=== PATIENT | female | born 1960 | race Caucasian/White ===

== ENCOUNTER 2025-02-10 13:24 | Emergency (ER) | payer MEDICARE, SELFPAY ==
--- OUTSIDE RECORDS SUMMARY | 2025-01-22 18:02 | XMS_ITS | Continuity of Care Document ---
Author Organization [facility] Address [address] [address] [place] [address] Phone Care Team Providers Care Account Resolution Specialist Name Role Phone Jay Sahu MD Unavailable Unavailable Allergies, Adverse Reactions, Alerts Substance Reaction Status Criticality budesonide Swelling Active No Information Iodinated Contrast Media throat swelling Active No Information Medications Medication Instructions Dosage Effective Dates (start - stop) Status Comments Skyrizi 360 mg/2.4 mL (150 mg/mL) subcutaneous wearable injector inject (360MG) by subcutaneous route every 6 weeks via on-body infusor 360 MG - Active trazodone 50 mg tablet take 40 milligram by oral route 2 times every day after meals as needed 2000 MG - Active Suprep Bowel Prep Kit 17.5 gram-3.13 gram-1.6 gram oral solution Take by oral route as directed per colonoscopy prep instructions from [facility] - Active Okay to dispense generic equivalent Procedure 12/29/24 losartan 50 mg tablet take 1 tablet by oral route every day 50 MG - Active Colace 100 mg capsule take 1 capsule by oral route 2 times every day as needed 100 MG - Active Eliquis 5 mg tablet take 1 tablet by oral route 1-2 times every day for stroke - Active atorvastatin 40 mg tablet take 1 tablet by oral route every day 40 MG - Active multivitamin tablet take 1 tablet by oral route every day 1 tablet - Active mesalamine 1,000 mg rectal suppository insert 1 suppository by rectal route TWICE daily for UC flare. - Active Proair Digihaler 90 mcg/actuation aerosol powder breath act, sensor inhale 2 puff by inhalation route every 4 - 6 hours as needed - Active magnesium 200 mg tablet take 2 tablet by oral route every day 2 tablet - Active Vitamin C 500 mg capsule,extended release take 1 - 2 capsule by oral route every day as needed 1-2 capsule - Active CURCUMIN (unknown strength) (tumeric) 900 mg daily Not Available - Active Procedures Procedure Date Offic/outpt E&m Estab Moderate 25 Colonoscopy Flex; W/remov Les- Colonoscopy Flex; W/bx 1/mx Level Iv-surg Path Gross/micro Offic/outpt E&m Estab Low Offic/outpt E&m Estab Skyrizi Iv Infus Therap/dx-by Phys; To Iv Infus Therap/dx-by Phys; Lino Routine Serum Collection Offic/outpt E&m Estab Low-mod 5 Init Hosp-da E&m Mod Severity 5 Skyrizi Iv Infus Therap/dx-by Phys; To Iv Infus Therap/dx-by Phys; Lino Routine Serum Collection Skyrizi Iv Infus Therap/dx-by Phys; To 25 Each Additional Hour Offic/outpt E&m Estab Mod-hi 2 25 Inflectra 10 mg IV Infusion Up To 1 Hour Inflectra 10 mg Inflectra 10 mg IV Infusion Up To 1 Hour Each Additional Hour Inflectra 10 mg Inflectra 10 mg IV Infusion Up To 1 Hour Each Additional Hour Inflectra 10 mg Inflectra 10 mg IV Infusion Up To 1 Hour Each Additional Hour Inflectra 10 mg Routine Serum Collection Offic/outpt E&m Estab Mod-hi 2 Routine Serum Collection Routine Serum Collection Sigmoidoscopy Flex; W/bx 1/mx 4 Level Iv-surg Path Gross/micro Immunocytochemistry, Each Antibody Offic/outpt E&m Estab Mod-hi 2 Offic/outpt E&m Estab Mod-hi 2 24 Routine Serum Collection Routine Serum Collection Routine Serum Collection Routine Serum Collection Routine Serum Collection Offic/outpt E&m Estab Mod-hi 2 23 Colonoscopy Flex; W/bx 1/mx Level Iv-surg Path Gross/micro 23 Established Level 3 Routine Serum Collection Routine Serum Collection Routine Serum Collection Offic/outpt E&m Estab Low-mod Routine Serum Collection Routine Serum Collection Bld Ct; Hg/pltlt Ct Auto/compl Hepatic Function Panel Routine Serum Collection Urea Nitro; Ty Creatinine; Bld Hepatic Function Panel Bld Ct; Hg/pltlt Ct Auto/compl Routine Serum Collection Hepatic Function Panel Bld Ct; Hg/pltlt Ct Auto/compl Nov-04-20 20 Routine Serum Collection Hepatic Function Panel Bld Ct; Hg/pltlt Ct Auto/compl 20 Established Level 3 or 15-24 min 2019 Routine Serum Collection Hepatic Function Panel Bld Ct; Hg/pltlt Ct Auto/compl 20 Routine Serum Collection Hepatic Function Panel Bld Ct; Hg/pltlt Ct Auto/compl 20 Offic/outpt E&m Estab Low-mod 9 Routine Serum Collection Bld Ct; Hg/pltlt Ct Auto/compl 19 Urea Nitro; Ty Creatinine; Bld Hepatic Function Panel Iron Iron Binding Capacity Vitamin D; 25 Hydroxy Colonoscopy Flex; W/bx 1/mx Level Iv-surg Path Gross/micro 19 Special Stains; Grp I Microorg 19 Immunocytochemistry, Each Antibody Routine Serum Collection Bld Ct; Hg/pltlt Ct Auto/compl 19 Hepatic Function Panel Offic/outpt E&m Estab Low-mod 9 Routine Serum Collection Bld Ct; Hg/pltlt Ct Auto/compl 19 Hepatic Function Panel Iron Cyanocobalamin Vitamin D; 25 Hydroxy Routine Serum Collection Hepatic Function Panel Bld Ct; Hg/pltlt Ct Auto/compl 18 Routine Serum Collection Bld Ct; Hg/pltlt Ct Auto/compl 18 Hepatic Function Panel Offic/outpt E&m Estab Low-mod 8 Routine Serum Collection Urea Nitro; Ty Creatinine; Bld Hepatic Function Panel Bld Ct; Hg/pltlt Ct Auto/compl 18 Routine Serum Collection Hepatic Function Panel Bld Ct; Hg/pltlt Ct Auto/compl 18 Routine Serum Collection Offic/outpt E&m Estab Low-mod 7 Hepatic Function Panel Bld Ct; Hg/pltlt Ct Auto/compl 17 Routine Serum Collection Bld Ct; Hg/pltlt Ct Auto/compl 17 Routine Serum Collection Bld Ct; Hg/pltlt Ct Auto/compl 17 Routine Serum Collection Bld Ct; Hg/pltlt Ct Auto/compl 17 Routine Serum Collection Bld Ct; Hg/pltlt Ct Auto/compl 17 Routine Serum Collection Bld Ct; Hg/pltlt Ct Auto/compl 17 Offic/outpt E&m Estab Low-mod 7 Routine Serum Collection Iron Iron Binding Capacity Hepatitis B Surface Antibody Ag-immunoassay; Hep B Surface Hepatitis A Antibody; Igg & Ig [address] Hg/pltlt Ct Auto/compl 17 Sigmoidoscopy Flex; W/bx 1/mx 7 Level Iv-surg Path Gross/micro 17 Immunocytochemistry, Each Antibody Stool Kits Given C. Difficile Toxin Gene, YAS Offic/outpt E&m Estab Mod-hi 2 17 Offic/outpt E&m Estab Mod-hi 2 16 Routine Serum Collection Bld Ct; Hg/pltlt Ct Auto/compl 16 Cyanocobalamin Hepatic Function Panel C-reactive Prot Iron Iron Binding Capacity Vitamin D; 25 Hydroxy Routine Serum Collection Bld Ct; Hg/pltlt Ct Auto/compl 16 Hepatic Function Panel Creatinine; Bld Urea Nitro; Ty Routine Serum Collection Bld Ct; Hg/pltlt Ct Auto/compl 15 Hepatic Function Panel Offic/outpt E&m Estab Mod-hi 2 15 Routine Serum Collection Bld Ct; Hg/pltlt Ct Auto/compl 15 Hepatic Function Panel Colonoscopy Flex; W/bx 1/mx Level Iv-surg Path Gross/micro 15 cancelled appt C. Difficile Toxin Gene, YAS Offic/outpt E&m Estab Mod-hi 2 15 Routine Serum Collection Immuniz Admin; 1/combo Vacc/to 15 Pneumococcal Polysacch Vac-wes [address]; Hg/pltlt Ct Auto/compl 15 Cyanocobalamin C-reactive Prot Creatinine; Bld Urea Nitro; Ty Vitamin D; 25 Hydroxy Routine Serum Collection Bld Ct; Hg/pltlt Ct Auto/compl 15 Hepatic Function Panel Routine Serum Collection Bld Ct; Hg/pltlt Ct Auto/compl 15 Hepatic Function Panel Offic/outpt E&m Estab Low-mod 5 Routine Serum Collection Bld Ct; Hg/pltlt Ct Auto/compl 15 Comp Metabolic Panel Routine Serum Collection Bld Ct; Hg/pltlt Ct Auto/compl 14 Hepatic Function Panel Creatinine; Bld Urea Nitro; Ty Offic/outpt E&m Estab Low-mod 4 Routine Serum Collection Bld Ct; Hg/pltlt Ct Auto/compl 14 Hepatic Function Panel Routine Serum Collection Bld Ct; Hg & Platelet Ct Autom [address] Hg/pltlt Ct Auto/compl 14 Hepatic Function Panel Offic/outpt E&m Estab Low-mod 4 Routine Serum Collection Offic/outpt E&m Estab Low-mod 3 Routine Serum Collection Bld Ct; Hg/pltlt Ct Auto/compl 13 Folic Acid; Serum Cyanocobalamin Hepatic Function Panel Iron Iron Binding Capacity Basic Metabolic Panel Thyroid Stim Hormone Ferritin Routine Serum Collection Bld Ct; Hg/pltlt Ct Auto/compl 13 Hepatic Function Panel Offic/outpt E&m Estab Low-mod 3 Routine Serum Collection Bld Ct; Hg/pltlt Ct Auto/compl 13 Hepatic Function Panel Basic Metabolic Panel Bld Ct; Hg/pltlt Ct Auto/compl 12 Hepatic Function Panel Offic/outpt E&m Estab Low-mod 2 Routine Serum Collection G8447 Routine Serum Collection Offic/outpt E&m Estab Low-mod 2 Routine Serum Collection G8447 Routine Serum Collection Offic/outpt E&m Estab Low-mod 1 Routine Serum Collection G8447 Routine Serum Collection Offic/outpt E&m Estab Low-mod 1 Routine Serum Collection G8447 Offic/outpt E&m Estab Low-mod 0 Routine Serum Collection G8447 Offic/outpt E&m Estab Low-mod 0 Routine Serum Collection G8447 Offic/outpt E&m Estab Low-mod 9 G8447 Offic/outpt E&m Estab Low-mod 9 Routine Serum Collection G8447 Offic/outpt E&m Estab Low-mod 8 Routine Serum Collection G8447 Offic/outpt E&m Estab Low-mod 8 Routine Serum Collection G8447 Routine Serum Collection Level Iv-surg Path Gross/micro 08 Special Stains; Grp I Microorg 08 Colonoscopy Flex; W/bx 1/mx Offic/outpt E&m Estab Mod-hi 2 08 Routine Serum Collection G8447 Advance Directives Directive Yes / No Effective Date File Name No Information Encounters Encounter Description Practice Location Reason(s) For Visit Diagnoses Date Provider Providers Copied on Encounter [facility], [address] [address], [place], [place], [id number], tel:[phone] No Information 5 Adelina Thompson. [address] [place] [address], [id number], [place]. tel:[phone] [facility], [address] [address], [facility] [place], [id number], [place] tel:[phone] [facility] No Information 5 Neel Gonzales. [address] [place] [address], [id number], [place]. tel:[phone] Offic/outpt E&m Estab Moderate [facility], [address] [address], [place], [place], [id number], tel:[phone] [facility] GI Symptoms or Concerns (chief complaint) Left sided colitis without complication sOther fatigueAbdom inal bloating 5 Sweta VÁZQUEZ Sangeetha. [address] [place] [address], [id number], [place]. tel:[phone] Referring Provider: Referral Self, USE FOR SELF REFERRALS. [facility], [address] [address], [facility] [place], [id number], [place] tel:[phone] [facility] Diverticulos is of large intestine without perforation or abscess without bleedingInte rnal hemorrhoidsC olorectal polypsUlcera tive colitis, unspecified, without complication sCrohn's disease of large intestine without complication Ulcerative colitis, unspecified, without complication sPolyp of colon 5 Fish De Dios. [address] [place] [address], [id number], [place]. tel:[phone] Referring Provider: Referral Self, USE FOR SELF REFERRALS. [facility], [address] [address], [facility] [place], [id number], [place] tel:[phone] [facility] No Information 5 Fish De Dios. [address] [place] [address], [id number], [place]. tel:[phone] Offic/outpt E&m Estab Low [facility], [address] [address], [facility] [place], [id number], [place] tel:[phone] [facility] Additional Narrative (chief complaint)GI Symptoms or Concerns (chief complaint) Ulcerative (chronic) rectosigmoid itis without complication s 5 Fish De Dios. [address] [place] [address], [id number], [place]. tel:[phone] Tiffanie Barton CNM. tel:[phone] ng Provider: Referral Self, USE FOR SELF REFERRALS. Offic/outpt E&m Estab [facility], [address] [address], [place] [place], [id number], [place] tel:[phone] [facility] GI Symptoms or Concerns (chief complaint) Ulcerative (chronic) rectosigmoid itis without complication s 5 Renato Trujillo. [address] [place] [address], [id number], . tel:[phone] Tiffanie Barton CNM. tel:[phone] ng Provider: Referral Self, USE FOR SELF REFERRALS. [facility], [address] [address], [place], [place], [id number], tel:[phone] [facility] Nick Ulcerative (chronic) rectosigmoid itis with rectal bleeding May-0 5 Fish De Dios. [address] [place] [address], [id number], [place]. tel:[phone] Tiffanie Barton CNM. tel:[phone] ng Provider: Referral Self, USE FOR SELF REFERRALS. [facility], [address] [address], [place], [place], [id number], tel:[phone] [facility] Ulcerative (chronic) rectosigmoid itis with rectal bleeding 0 5 Fish De Dios. [address] [place] [address], [id number], [place]. tel:[phone] Tiffanie MEDINAM. tel:[phone] ng Provider: Referral Self, USE FOR SELF REFERRALS. Offic/outpt E&m Estab Low-mod [facility], [address] [address], [place], [place], [id number], tel:[phone] [facility] GI Symptoms or Concerns (chief complaint)Ad ditional Narrative (chief complaint) Ulcerative (chronic) rectosigmoid itis without complication s 5 Fish De Dios. [address] [place] [address], [id number], [place]. tel:[phone] Tiffanie Barton CNM. tel:[phone] ng Provider: Referral Self, USE FOR SELF REFERRALS. Init Hosp-da E&m Mod Severity [facility], [address] [address], [place], [id number], [place] tel:[phone] [facility] No Information 5 Sangeethacecily COOPER Maureen. [address], [id number], [place]. tel:[phone] Referring Provider: Sharri Saini, [address] [place], [address]. tel:[phone] [facility], [address] [address], [place], [id number], [place] tel:[phone] [facility] Ulcerative (chronic) rectosigmoid itis with rectal bleeding 5 Edstrjean carlos Sterling. [address], [id number], [place]. tel:[phone] [facility], [address] [address], [place], [id number], [place] tel:[phone] [facility] [place] Ulcerative (chronic) rectosigmoid itis with rectal bleeding 5 Fish De Dios. [address] [place] [address], [id number], [place]. tel:[phone] Tiffanie Barton CNM. tel:[phone] ng Provider: Referral Self, USE FOR SELF REFERRALS. [facility], [address] [address], [place], [id number], [place] tel:[phone] [facility] Ulcerative (chronic) rectosigmoid itis with rectal bleeding 5 Sweta Vivas. [facility] [address], [id number], [place]. tel:[phone] Tiffanie Barton CNM. tel:[phone] ng Provider: Referral Self, USE FOR SELF REFERRALS. [facility], [address] [address], [place], [id number], tel:[phone] [facility] Nick Ulcerative (chronic) rectosigmoid itis with rectal bleeding 5 Lydia Sterling. [address] [place] [address], [id number], . tel:[phone] [facility], [address] [address], [place], [id number], tel:[phone] [facility] [place] Ulcerative (chronic) rectosigmoid itis with rectal bleeding 5 Rito Gutierrez. [address] [place] [address], [id number], [place]. tel:[phone] Tiffanie Barton CNM. tel:[phone] ng Provider: Referral Self, USE FOR SELF REFERRALS. [facility], [address] [address], [place], [place], [id number], tel:[phone] [facility] [place] Ulcerative (chronic) rectosigmoid itis with rectal bleeding Lydia Sterling. [address] [place] [address], [id number], [place]. tel:[phone] Tiffanie Barton CNM. tel:[phone] Offic/outpt E&m Estab Mod-hi 2 [facility], [address] [address], [place], [place], [id number], tel:[phone] [facility] GI Symptoms or Concerns (chief complaint) Ulcerative (chronic) rectosigmoid itis with rectal bleeding 5 Lydia Sterling. [address] [place] [address], [id number], [place]. tel:[phone] Tiffanie Barton CNM. tel:[phone] ng Provider: Referral Self, USE FOR SELF REFERRALS. [facility], [address] [address], [place], [id number], [place] tel:[phone] In[facility] Ulcerative (chronic) rectosigmoid itis with rectal bleeding Jan-2 4 Fish De Dios. [address] [facility], [address], [id number], [place]. tel:[phone] [facility], [address] [address], [place], [id number], [place] tel:[phone] [facility] [place] Ulcerative (chronic) rectosigmoid itis with rectal bleeding Jan-0 3 4 Lars Sahni. [address] [place] [address], [id number], [place]. tel:[phone] Tiffanie Barton [facility]. tel:[phone] ng Provider: Referral Self, USE FOR SELF REFERRALS. [facility], [address] [address], [place], [id number], [place] tel:[phone] [facility] Ulcerative (chronic) rectosigmoid itis without complication s Dec- 4 Fish De Dios. [address] [place] [address], [id number], [place]. tel:[phone] [facility], [address] [address], [place], [id number], [place] tel:[phone] [facility] [place] Ulcerative (chronic) rectosigmoid itis with rectal bleeding Nov-2 2 4 Lars Sahni. [address] [place] [address], [id number], [place]. tel:[phone] Referring Provider: Referral Self, USE FOR SELF REFERRALS. [facility], [address] [address], [place], [id number], [place] tel:[phone] [facility] Ulcerative (chronic) rectosigmoid itis with rectal bleeding Nov-0 8 4 Fish De Dios. [address] [place] [address], [id number], [place]. tel:[phone] [facility], [address] [address], [place], [id number], [place] tel:[phone] [facility] Ulcerative (chronic) rectosigmoid itis with rectal bleeding Sep-2 4-202 4 Lars Sahni. [address] [place] [address], [id number], [place]. tel:[phone] Tiffanie Barton CNM. tel:[phone] Provider: Referral Self, USE FOR SELF REFERRALS. [facility], [address] [address], [place], [id number], [place] tel:[phone] [facility] Ulcerative (chronic) rectosigmoid itis with rectal bleeding Sep-1 0-202 4 Ashli Moreno. [address] [place] [address], [id number], [place]. tel:[phone] Tiffanie Barton CNM. tel:[phone] Provider: Referral Self, USE FOR SELF REFERRALS. [facility], [address] [address], [place], [id number], [place] tel:[phone] [facility] Ulcerative (chronic) rectosigmoid itis with rectal bleeding Sep-1 0-202 4 Sweta Vivas. [address] [place] [address], [id number], [place]. tel:[phone] Tiffanie Barton CNM. tel:[phone] Provider: Referral Self, USE FOR SELF REFERRALS. [facility], [address] [address], [place], [id number], [place] tel:[phone] [facility] [place] Ulcerative (chronic) rectosigmoid itis with rectal bleeding Sep-0 5-202 4 Fish De Dios. [address] [place] [address], [id number], [place]. tel:[phone] [facility], [address] [address], [place], [id number], [place] tel:[phone] [facility] Ulcerative (chronic) rectosigmoid itis with rectal bleeding 4 Fish De Dios. [address] [facility], [address], [id number], [place]. [phone] [facility], [address] [address], [place], [id number], [place] tel:[phone] [facility] Ulcerative (chronic) rectosigmoid itis with rectal bleeding 4 Fish De Dios. [address], [id number], [place]. tel:[phone] Offic/outpt E&m Estab Mod-hi 2 [facility], [address] [address], [place], [id number], [place] tel:[phone] [facility] GI Symptoms or Concerns (chief complaint)Ad ditional Narrative (chief complaint) Ulcerative (chronic) rectosigmoid itis with rectal bleeding 4 Fish De Dios. [address], [id number], [place]. tel:[phone] Tiffanie Barton CNM. tel:[phone] ng Provider: Referral Self, USE FOR SELF REFERRALS. [facility], [address] [address], [place], [id number], [place] tel:[phone] [facility] No Information 4 Sweta Vivas. [address], [id number], [place]. tel:[phone] Tiffanie Barton CNM. tel:[phone] [facility], [address] [address], [place], [id number], [place] tel:[phone] [facility] Ulcerative (chronic) rectosigmoid itis without complication s 4 [place] [facility] Sangeetha. [address] [facility], [facility] [address], [place], [place], [id number], [place]. [phone] Tiffanie Barton CNM. tel:[phone] ng Provider: Referral Self, USE FOR SELF REFERRALS. [facility], [address] [address], [place], [id number], [place] tel:[phone] [facility] Ulcerative (chronic) rectosigmoid itis without complication s 4 [place] PAC Sangeetha. [address] [facility], [facility] [address], [place], [place], [id number], [place]. tel:[phone] [facility], [address] [address], [place], [id number], [place] tel:[phone] [facility] Ulcerative (chronic) rectosigmoid itis with rectal bleedingLeft sided colitis without complication s 4 [place] PAC Sangeetha. [address] [facility] [place], [place], [id number], [place]. tel:[phone] Tiffanie Barton CNM. tel:[phone] ng Provider: Referral Self, USE FOR SELF REFERRALS. [facility], [address] [address], [place], [id number], [place] tel:[phone] [facility] Left sided colitis without complication s 4 [place] PAC Sangeetha. [address] [facility], [facility] [place], [id number], [place]. tel:[phone] [facility], [address] [address], [place], [id number], [place] tel:[phone] [facility] No Information 4 [place] PAC Sangeetha. [address] [facility], [facility] [address], [place], [place], [id number], [place]. tel:[phone] [facility], [address] [address], [place], [id number], [place] tel:[phone] [facility] GI Symptoms or Concerns (chief complaint) Ulcerative colitis without complication s, unspecified locationUlce rative colitis, unspecified, without complication s 4 Uche Crowe. [address] [facility], [address], [id number], [place]. tel:[phone] Tiffanie Barton CNM. tel:[phone] ng Provider: Referral Self, USE FOR SELF REFERRALS. Offic/outpt E&m Estab Mod-hi 2 [facility], [address] [address], [place], [id number], [place] tel:[phone] [facility] GI Symptoms or Concerns (chief complaint) Left sided colitis without complication sConstipatio n, unspecified constipation typeRectal bleeding 4 Sweta Vivas. [address], [id number], [place]. tel:[phone] Tiffanie Barton CNM. tel:[phone] ng Provider: Referral Self, USE FOR SELF REFERRALS. [facility], [address] [address], [place], [id number], [place] tel:[phone] [facility] Left sided colitis without complication s 4 Sweta Vivas. [address], [id number], [place]. tel:[phone] Offic/outpt E&m Estab Mod-hi 2 [facility], [address] [address], [place], [id number], [place] tel:[phone] [facility] GI Symptoms or Concerns (chief complaint)Ad ditional Narrative (chief complaint) Left sided colitis without complication sConstipatio n, unspecified constipation typeAbdomina l bloating 4 OMgera Vivas. [address], [id number], [place]. tel:[phone] Tiffanie Barton CNM. tel:[phone] keiry Provider: Referral Self, USE FOR SELF REFERRALS. [facility], [address] [address], [place] [place], [id number], [place] tel:[phone] [facility] Ulcerative (chronic) rectosigmoid itis with rectal bleedingUlce rative (chronic) rectosigmoid itis without complication s 3 Sweta Vivas. [address]001 [facility], [facility] [address], [place], [address], [place]. tel:[phone] Referring Provider: Referral Self, USE FOR SELF REFERRALS. [facility], [address] [address], [place], [id number], [place] tel:[phone] [facility] Ulcerative (chronic) rectosigmoid itis without complication s 3 Shiv Mak. [address] [facility], [facility] [address], [place], [address], [place]. tel:[phone] [facility], [address] [address], [place], [address], [place] tel:[phone] [facility] Ulcerative (chronic) rectosigmoid itis with rectal bleeding 3 Fish De Dios. [address], [id number], [place]. tel:[phone] Tiffanie Barton CNM. tel:[phone] ng Provider: Referral Self, USE FOR SELF REFERRALS. [facility], [address] [address], [place], [address], [place] tel:[phone] [facility] Other ulcerative colitis without complication s 3 Fish De Dios. [address] [facility], [facility] [address], [place], [address], [place]. tel:[phone] Tiffanie Barton CNM. tel:[phone] ng Provider: Referral Self, USE FOR SELF REFERRALS. Offic/outpt E&m Estab Mod-hi 2 [facility], [address] [address], [place], [address], [place] tel:[phone] [facility] Additional Narrative (chief complaint) Ulcerative (chronic) rectosigmoid itis without complication s 3 Fish De Dios. [address], [id number], [place]. tel:[phone] Tiffanie Barton CN. tel:[phone] ng Provider: Referral Self, USE FOR SELF REFERRALS. [facility], [address] [address], [place], [address], [place] tel:[phone] [facility] GI Symptoms or Concerns (chief complaint) Ulcerative (chronic) rectosigmoid itis without complication sUlcerative (chronic) rectosigmoid itis without complication s 3 Linwood Ocampo. [address], [id number], [place]. tel:[phone] Tiffanie Hapapo CN. tel:[phone] ng Provider: Referral Self, USE FOR SELF REFERRALS. Established Level 3 [facility], [address] [address], [place], [id number], [place] tel:[phone] [facility] GI Symptoms or Concerns (chief complaint) Chronic ulcerative rectosigmoid itis without complication sAbdominal bloating 2 Sweta Vivas. [address] [facility], [facility] 500, [place], [place], [address], [place]. tel:[phone] Tiffanie Oralia CN. tel:[phone] ng Provider: Referral Self, USE FOR SELF REFERRALS. [facility], [address] [address], [place], [address], [place] tel:[phone] [facility] Ulcerative (chronic) rectosigmoid itis with rectal bleeding 2 [place] PAC Sangeetha. 3[address] [facility], [address], [id number], [place]. tel:[phone] Tiffanie Barton CNM. tel:[phone] ng Provider: Referral Self, USE FOR SELF REFERRALS. [facility]INA, [address] [address], [place], [address], [place] tel:[phone] [facility] Ulcerative (chronic) rectosigmoid itis with rectal bleeding 2 [place] PAC Sangeetha. [address] [facility], [address], [id number], [place]. tel:[phone] Tiffanie Barton CNM. tel:[phone] ricci Provider: Referral Self, USE FOR SELF REFERRALS. 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 [address], [id number], [place]. tel:[phone] Tiffanie Barton CNM. tel:[phone] ng Provider: Referral Self, USE FOR SELF REFERRALS. 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 [address] [facility], [address], [id number], [place]. tel:[phone] Tiffanie Barton CNM. tel:[phone] ng Provider: Referral Self, USE FOR SELF REFERRALS. [facility]INA, [address] [address], [place], [address], [place] tel:[phone] [facility] Other ulcerative colitis without complication s 1 [place] PAC Sangeetha. [address] [facility], [address], [id number], [place]. tel:[phone] Tiffanie Barton CNM. tel:[phone] keiry Provider: Tiffanie Hodge, [address] [place], [address]. 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 [address] [facility], [address], [id number], [place]. tel:[phone] Tiffanie Barton CNM. tel:[phone] keiry Provider: Sangeetha Flowers, 3[address] [facility] [address], [address]. [phone] [facility], [address] [address], [facility], [address], [place] tel:[phone] [facility] Other ulcerative colitis without complication s 1 OMor[place]oe PAC Sangeetha. [address] [facility], [address], [id number], [place]. tel:[phone] Tiffanie Barton CNM. tel:[phone] keiry Provider: Referral Self, USE FOR SELF REFERRALS. [facility], [address] [address], [facility], [address], [place] tel:[phone] [facility] Left sided colitis without complication s 0 OMor[place]oe PAC Sangeetha. [address] [facility], [facility] [address], [place], [address], [place]. tel:[phone] Tiffanie Barton CNM. tel:[phone] keiry Provider: Referral Self, USE FOR SELF REFERRALS. [facility] AMINA, [address] [address], [facility] [place] [address], [place] tel:[phone] [facility] Ulcerative (chronic) rectosigmoid itis with rectal bleedingLeft sided colitis without complication s 0 OMorindianae PAC Sangeetha. [address] [facility], [address], [id number], [place]. tel:[phone] Tiffanie Barton CNYeny. tel:[phone] keiry Provider: Tiffanie Hodge, [address] [place] [address], [place], [place], [facility]. tel:[phone] Established Level 3 or 15-24 min [facility] AMINA, [address] [address], [place], [place], [address], [place] tel:[phone] [facility] GI Symptoms or Concerns (chief complaint)GI Symptoms or Concerns (chief complaint) Left sided ulcerative colitis without complication 0 JEAN CARLOSorgrabiel Vivas. 3[address] [facility], [address], [id number], [place]. tel:[phone] Tiffanie Barton CNYeny. tel:[phone] keiry Provider: Tiffanie Hodge, [address], [place], [address]. 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 3[address] [facility], [address], [id number], [place]. tel:[phone] Tiffanie Barton CNYeny. tel:[phone] ng Provider: Sangeetha Flowers, [address], [address]. 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 [address], [id number], [place]. tel:[phone] Tiffanie Barton CNM. tel:[phone] ricci Provider: Tiffanie Barton CNM J, [address] [facility] [place], [address]. tel:[phone] Offic/outpt E&m Estab Low-mod [facility], [address] [address], [place], [address], [place] tel:[phone] [facility] GI Symptoms or Concerns (chief complaint) Left sided ulcerative colitis without complication 9 OMmarcosmaryjane VÁZQUEZ Sangeetha. [address], [id number], [place]. tel:[phone] Tiffanie Barton CNM. tel:[phone] ricci Provider: Referral Self, USE FOR SELF REFERRALS. [facility], [address] [address], [place], [address], [place] tel:[phone] [facility] No Information 9 Jared Lo. 3[address] [facility], [address], [id number], [place]. tel:[phone] [facility], [address] [address], [place], [address], [place] tel:[phone] [facility] Ulcerative (chronic) rectosigmoid itis with rectal bleedingDive rticulosis of colon without diverticulit isUlcerative (chronic) rectosigmoid itis with rectal bleedingDvrt clos of lg int w/o perforation or abscess w/o bleeding 9 Mejia Montoya. [address] [address], [place], [place], [address], [place]. tel:[phone] Tiffanie Barton CNM. tel:[phone] ricci Provider: Tiffanie Hodge, [address], [place], [address]. tel:[phone] [facility], [address] [address], [facility] [place], [address], [place] tel:[phone] [facility] Ulcerative (chronic) rectosigmoid itis with rectal bleeding 9 OMor[place] PAC Sangeetha. [address], [id number], [place]. tel:[phone] Tiffanie Barton CNM. tel:[phone] ricci Provider: Tiffanie Hodge, [address] [place], [address]. tel:[phone] Offic/outpt E&m Estab Low-mod [facility], [address] [address], [facility] [place], [place], [address], [place] tel:[phone] [facility] GI Symptoms or Concerns (chief complaint) Left sided ulcerative colitis without complication Dietary counseling and surveillance Elevated blood-pressu re reading, w/o diagnosis of htn 9 OMor[place] PAC Sangeetha. [address], [id number], [place]. [phone] Tiffanie Barton CNM. tel:[phone] ricci Provider: Tiffanie Hodge, [address] [facility], [place], [address]. tel:[phone] [facility], [address] [address], [facility] [place], [place], [address], [place] tel:[phone] [facility] Ulcerative (chronic) rectosigmoid itis with rectal bleeding 8 OMor[place]oe PAC Sangeetha. [address], [id number], [place]. tel:[phone] Tiffanie Barton CNM. tel:[phone] ng Provider: Tiffanie Barton CNM J, [address] [place], [address]. tel:[phone] [facility], [address] [address], [place], [place], [address], tel:[phone] [facility] Ulcerative (chronic) rectosigmoid itis with rectal bleeding 8 [place] PAC Sangeetha. [address], [id number], [place]. tel:[phone] Tiffanie Barton CNM. tel:[phone] ng Provider: Referral Self, USE FOR SELF REFERRALS. Offic/outpt E&m Estab Low-mod [facility], [address] [address], [place], [place], [address], [place] tel:[phone] [facility] GI Symptoms or Concerns (chief complaint) Left sided ulcerative colitis without complication 8 OMorchomaryjane PAC Sangeetha. [address], [id number], [place]. tel:[phone] Tiffanie Barton CNM. tel:[phone] ng Provider: Referral Self, USE FOR SELF REFERRALS. [facility] AMINA, [address] [address], [place], [place], [address], [place] tel:[phone] [facility] Ulcerative (chronic) rectosigmoid itis with rectal bleeding 8 OMorgrabiel PAC Sangeetha. [address], [id number], [place]. tel:[phone] Tiffanie Barton CNM. tel:[phone] ricci Provider: Referral Self, USE FOR SELF REFERRALS. 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 [address], [id number], [place]. tel:[phone] Tiffanie Barton CNM. tel:[phone] ricci Provider: Referral Self, USE FOR SELF REFERRALS. [facility], [address] [address], [place], [address], [place] tel:[phone] [facility] Ulcerative (chronic) rectosigmoid itis with rectal bleeding Sep- 7 OMorchoe PAC Sangeetha. [address], [id number], [place]. tel:[phone] Tiffanie Barton CNM. tel:[phone] ricci Provider: Referral Self, USE FOR SELF REFERRALS. [facility], [address] [address], [place], [address], [place] tel:[phone] [facility] Ulcerative (chronic) rectosigmoid itis with rectal bleeding Sep- 7 OMorchoe PAC Sangeetha. [address], [id number], [place]. tel:[phone] Tiffanie Barton CNM. tel:[phone] [facility], [address] [address], [place], [address], [place] tel:[phone] [facility] Ulcerative (chronic) rectosigmoid itis with rectal bleeding Sep- 7 OMor[place]oe PAC Sangeetha. [address], [id number], [place]. tel:[phone] Tiffanie Barton CNM. tel:[phone] ricci Provider: Listed Not. [facility], [address] [address], [place], [address], [place] tel:[phone] [facility] Ulcerative (chronic) rectosigmoid itis with rectal bleeding Sep-1 7 O[place] PAC Sangeetha. [address] [facility], [address], [id number], [place]. tel:[phone] Tiffanie Barton CNM. tel:[phone] [facility], [address] [address], [place], [address], [place] tel:[phone] [facility] Ulcerative (chronic) rectosigmoid itis with rectal bleeding Sep-0 7 O[place] PAC Sangeetha. [address] [facility], [address], [id number], [place]. tel:[phone] Tiffanie Barton CNM. tel:[phone] ng Provider: Listed Not. [facility], [address] [address], [place] [facility] [place], [address], [place] tel:[phone] [facility] Ulcerative (chronic) rectosigmoid itis with rectal bleeding Sep-3 0 7 OMorch[place] PAC Sangeetha. [address] [address], [place], [place], [address], [place]. tel:[phone] Tiffanie Barton CNM. tel:[phone] [facility], [address] [address], [place], [address], [place] tel:[phone] [facility] Other ulcerative colitis without complication s Sep-2 7 OMor[place] PAC Sangeetha. [address], [id number], [place]. tel:[phone] Tiffanie Barton CNM. tel:[phone] ng Provider: Tiffanie Hodge, [address] [place], [address]. tel:[phone] [facility], [address] [address], [place], [address], [place] tel:[phone] [facility] Other ulcerative colitis without complication s OMorgrabiel PAC Sangeetha. 3[address] [facility], [facility] 500, [place], [place], [address], [place]. tel:[phone] Tiffanie Barton CNM. tel:[phone] [facility], [address] [address], [place], [address], [place] tel:[phone] [facility] Ulcerative (chronic) rectosigmoid itis with rectal bleeding OMorchomaryjane PAC Sangeetha. [address] [facility], [facility] 500, [place], [place], [address], [place]. tel:[phone] Tiffanie Barton CNM. tel:[phone] ng Provider: Tiffanie Barton CNM J, [address], [place], [address]. 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 [address] [facility], [facility] 500, [place], [place], [address], [place]. tel:[phone] Tiffanie Barton CNM. tel:[phone] ng Provider: Tiffanie Hodge, [address], [place], [address]. tel:[phone] [facility], [address] [address], [place], [address], [place] tel:[phone] [facility] Other ulcerative colitis without complication Other ulcerative colitis without complication s Apr-2 1-201 7 No Information Referring Provider: Tiffanie Barton CNM J, [address] [place], [address]. tel:[phone] [facility], [address] [address], [place], [address], [place] tel:[phone] [facility] Ulcerative (chronic) rectosigmoid itis with rectal bleeding Apr-1 7 OMrebeccagrabiel VÁZQUEZ Sangeetha. 3001 [facility], [address], [id number], [place]. tel:[phone] Tiffanie Barton CNM. tel:[phone] ricci Provider: Referral Self, USE FOR SELF REFERRALS. Offic/outpt E&m Estab Mod-hi 2 [facility], [address] [address], [place] [place], [address], [place] tel:[phone] [facility] GI Symptoms or Concerns (chief complaint) Chronic ulcerative rectosigmoid itis with rectal bleeding Apr-0 7 JEAN CARLOSorgrabiel VÁZQUEZ Sangeetha. [address], [id number], [place]. [phone] Tiffanie Barton CNM. tel:[phone] ricci Provider: Referral Self, USE FOR SELF REFERRALS. Offic/outpt E&m Estab Mod-hi 2 [facility], [address] [address], [place], [address], [place] tel:[phone] [facility] GI Symptoms or Concerns (chief complaint)Ad ditional Narrative (chief complaint) Ulcerative (chronic) rectosigmoid itis with rectal bleeding Apr-2 6 Louisa Garcia. [address], [id number], [place]. tel:[phone] Tiffanie Barton CNM. tel:[phone] ricci Provider: Referral Self, USE FOR SELF REFERRALS. [facility], [address] [address], [place], [address], [place] tel:[phone] [facility] Ulcerative (chronic) rectosigmoid itis with rectal bleeding 6 Louisa Garcia. [address] [place] [address], [id number], [place]. tel:[phone] Tiffanie Barton CNM. tel:[phone] ricci Provider: Tiffanie Hodge, [address], [place], [address]. tel:[phone] [facility], [address] [address], [place], [place], [address], [place] tel:[phone] [facility] No Information Louisa Garcia. [address] [place] [address], [id number], [place]. tel:[phone] Tiffanie Barton CNM. tel:[phone] keiry Provider: Tiffanie Hodge, [address], [place], [address]. tel:[phone] Offic/outpt E&m Estab Mod-hi 2 [facility], [address] [address], [place], [place], [address], [place] tel:[phone] [facility] GI Symptoms or Concerns (chief complaint) Chronic ulcerative rectosigmoid itis, with rectal bleedingDiet rosalino counseling and surveillance Louisa Garcia. [address] [place] [address], [id number], [place]. tel:[phone] Tiffanie Barton CNM. tel:[phone] keiry Provider: Tiffanie Hodge, [address], [place], [address]. 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 3001 [facility], [facility] [address], [place], [address], [place]. tel:[phone] Referring Provider: Tiffanie Hodge, [address] [place], [address]. [phone] [facility], [address] [address], [facility], [address], [place] tel:[phone] [facility] No Information 5 Lars Sahni. 3001 [facility] [address], [place], [address], [place]. tel:[phone] Referring Provider: Tiffanie Hodge, [address] [place], [address]. tel:[phone] [facility], [address] [address], [place] [place], [address], [place] tel:[phone] [facility] Chronic ulcerative rectosigmoid itis, without complication s [place] AMINA Sterling. [address], [id number], [place]. tel:[phone] Referring Provider: Tiffanie Hodge, [address] [place], [address]. tel:[phone] [facility], [address] [address], [facility], [address], [place] tel:[phone] [facility] No Information 5 Edstrjean carlos Sterling. [address], [id number], [place]. tel:[phone] Tiffanie Barton CNM. tel:[phone] Provider: Referral Self, USE FOR SELF REFERRALS. Offic/outpt E&m Estab Mod-hi 2 [facility], [address] [address], [place], [address], [place] tel:[phone] [facility] GI Symptoms or Concerns (chief complaint) Ulcerative Proctosigmoi ditisDietary Surveil/coun tae 0 5 [place] AMINA Sterling. 3001 [facility], [facility] 500, [place], [place], [address], [place]. tel:[phone] Tiffanie Haqq CNM. tel:[phone] ricci Provider: Referral Self, USE FOR SELF REFERRALS. [facility], [address] [address], [place], [place], [address], [place] tel:[phone] [facility] Ulcerative Proctosigmoi ditis 5 No Information Tiffanie Haqq CNM. tel:[phone] ng Provider: Referral Self, USE FOR SELF REFERRALS. [facility] AMINA, [address] [address], [place], [place], [address], [place] tel:[phone] [facility] No Information 5 No Information Tiffanie Haqq CNM. tel:[phone] keiry Provider: Tiffanie Barton CNM J, [address], [place], [address]. tel:[phone] [facility], [address] [address], [place], [place], [address], [place] tel:[phone] [facility] Ulcerative Proctosigmoi ditis 0 5 No Information Tiffanie Haqq CNM. tel:[phone] Offic/outpt E&m Estab Low-mod [facility], [address] [address], [place], [place], [address], [place] tel:[phone] [facility] GI Symptoms or Concerns (chief complaint) Ulcerative Proctosigmoi ditisDietary Surveil/coun selElev Bl Pres W/o Hypertn 2 5 No Information Tiffanie Haqq CNM. tel:[phone] ricci Provider: Tiffanie Barton CNM J, [address], [place], [address]. tel:[phone] [facility], [address] [address], [place], [id number], [place] tel:[phone] [facility] Ulcerative Proctosigmoi ditis 4 No Information Tiffanie Barton CNM. tel:[phone] Provider: Referral Self, USE FOR SELF REFERRALS. Offic/outpt E&m Estab Low-mod [facility], [address] [address], [place], [id number], [place] tel:[phone] [facility] GI Symptoms or Concerns (chief complaint) Ulcerative Proctosigmoi ditisDietary Surveil/coun selElev Bl Pres W/o Hypertn 4 No Information Tiffanie Barton CNM. tel:[phone] Provider: Referral Self, USE FOR SELF REFERRALS. [facility] [place], [address] [address], [place], [id number], [place] tel:[phone] [facility] Ulcerative Proctosigmoi ditis 4 No Information Referring Provider: Referral Self, USE FOR SELF REFERRALS. [facility], [address] [address], [place], [id number], [place] tel:[phone] [facility] Ulcerative Proctosigmoi ditis 4 No Information Referring Provider: Tiffanie Barton CNM J, [address], [place], [address]. tel:[phone] Offic/outpt E&m Estab Low-mod [facility], [address] [address], [place], [id number], [place] tel:[phone] [facility] Ulcerative Proctosigmoi ditisUlcerat jacky Proctosigmoi ditisOth Malaise & Fatigue 4 No Information Referring Provider: Tiffanie Barton CNM J, [address], [place], [address]. tel:[phone] Offic/outpt E&m Estab Low-mod [facility] [place], [address] [address], [place], [id number], [place] tel:[phone] [facility] Ulcerative Colitis (chief complaint) Ulcerative Proctosigmoi ditisUlcerat jacky Proctosigmoi ditisOth Malaise & Fatigue 0 3 No Information Referring Provider: Tiffanie Barton CNM J, [address], [place], [address]. tel:[phone] [facility], [address] [address], [place], [id number], [place] tel:[phone] [facility] Ulcerative Proctosigmoi ditis 3 No Information Referring Provider: Tiffanie Barton CNM J, [address], [place], [address]. tel:[phone] [facility], [address] [address], [place], [id number], [place] tel:[phone] [facility] medication follow up / ibd pt. (chief complaint) Ulcerative Proctosigmoi ditisUlcerat jacky Proctosigmoi ditis 3 No Information Referring Provider: Referral Self, USE FOR SELF REFERRALS. [facility], [address] [address], [place], [id number], [place] tel:[phone] [facility] Ulcerative Proctosigmoi ditis 2 No Information [facility]pt [facility], [address] [address], [place], [id number], [place] tel:[phone] [facility] 6 month f/u). (chief complaint)Ul cerative proctosigmoi ditis (chief complaint) Ulcerative Proctosigmoi ditisUlcerat jacky Proctosigmoi ditis 2 No Information Referring Provider: Tiffanie Hodge, [address], [place], [address]. tel:[phone] [facility], [address] [address], [place], [id number], [place] tel:[phone] [facility] Ulcerative Proctosigmoi ditis 2 No Information Referring Provider: Tiffanie Hodge, [address], [place], [address]. tel:[phone] Offic/outpt E&m Estab Low-mod [facility], [address] [address], [place], [id number], [place] tel:[phone] [facility] Ulcerative Colitis (chief complaint) Ulcerative Proctosigmoi ditisUlcerat jacky Proctosigmoi ditis 2 No Information Referring Provider: Tiffanie Hodge, [address], [place], [address]. tel:[phone] [facility] [place], [address] [address], [place], [id number], [place] tel:[phone] [facility] Ulcerative Proctosigmoi ditis 1 No Information Referring Provider: Tiffanie Hodge, [address], [place], [address]. tel:[phone] Offic/outpt E&m Estab Low-mod [facility], [address] [address], [place], [id number], [place] tel:[phone] [facility] Ulcerative Colitis (chief complaint) Ulcerative Proctosigmoi ditisUlcerat jacky Proctosigmoi ditis 1 No Information Referring Provider: Tiffanie Hodge, [address], [place], [address]. tel:[phone] [facility], [address] [address], [place], [id number], [place] tel:[phone] [facility] Ulcerative Proctosigmoi ditis 1 No Information Referring Provider: Tiffanie Hodge, [address], [place], [address]. tel:[phone] Offic/outpt E&m Estab Low-mod [facility], [address] [address], [place], [id number], [place] tel:[phone] [facility] Ulcerative proctosigmoi ditis (chief complaint) Ulcerative Proctosigmoi ditisUlcerat jacky Proctosigmoi ditis 1 No Information Referring Provider: Tiffanie Barton CNM J, [address], [place], [address]. tel:[phone] [facility], [address] [address], [place], [id number], [place] tel:[phone] [facility] Ulcerative Proctosigmoi ditis 0 No Information [facility], [address] [address], [place], [id number], [place] tel:[phone] [facility] Ulcerative Proctosigmoi ditis 0 No Information Referring Provider: Tiffanie Hodge, [address], [place], [address]. tel:[phone] Offic/outpt E&m Estab Low-mod [facility], [address] [address], [place], [id number], [place] tel:[phone] [facility] Ulcerative Colitis (chief complaint) Ulcerative Proctosigmoi ditisUlcerat jacky Proctosigmoi ditis 0 No Information Referring Provider: Tiffanie Hodge, [address], [place], [address]. tel:[phone] Offic/outpt E&m Estab Low-mod [facility], [address] [address], [place], [id number], [place] tel:[phone] [facility] Ulcerative colitis (chief complaint)me d refills- asacol, 6MP (chief complaint) Ulcerative Proctosigmoi ditisUlcerat jacky Proctosigmoi ditis 0 No Information Referring Provider: Tiffanie Hodge, [address], [place], [address]. tel:[phone] Offic/outpt E&m Estab Low-mod [facility], [address] [address], [place], [place], [id number], [place] tel:[phone] [facility] Ulcerative proctosigmoi ditis (chief complaint) Ulcerative Proctosigmoi ditisUlcerat jacky Proctosigmoi ditis 9 No Information Referring Provider: Tiffanie Hodge, [address], [place], [address]. tel:[phone] Offic/outpt E&m Estab Low-mod [facility], [address] [address], [place], [place], [id number], [place] tel:[phone] [facility] 6mp F/U (chief complaint) Ulcerative Proctosigmoi ditis 9 No Information Referring Provider: Tiffanie Hodge, [address], [place], [address]. tel:[phone] Offic/outpt E&m Estab Low-mod [facility], [address] [address], [place], [place], [id number], [place] tel:[phone] [facility] F/U 6MP, ulcerative colitis (chief complaint) Ulcerative Proctosigmoi ditis 8 No Information Referring Provider: Tiffanie Hodge, [address], [place], [address]. tel:[phone] Offic/outpt E&m Estab Low-mod [facility], [address] [address], [place], [place], [id number], [place] tel:[phone] [facility] Ulcerative Proctosigmoi ditisJoint Pain-unspec 8 No Information Referring Provider: Tiffanie Hodge, [address], [place], [address]. tel:[phone] [facility], [address] [address], [place], [place], [id number], tel:[phone] [facility] Ulcerative Proctitis 8 No Information Referring Provider: Tiffanie Barton CNM J, [address], [place], [address]. tel:[phone] Offic/outpt E&m Estab Mod-hi 2 [facility] [place], [address] [address], [place], [place], [id number], tel:[phone] [facility] Ulcerative Proctosigmoi ditisHematoc hezia/melena Abdominal Pain, Unspecified Apr- 8 No Information Referring Provider: Tiffanie Barton CNM J, [address], [place], [address]. tel:[phone] Family History Family Member Type Diagnosis Age At Onset Mother Problem (finding) Alive and well Sister Problem (finding) Alive and well Father Problem (finding) Alive and well Daughter Problem (finding) Irritable bowel disease Brother Problem (finding) Alive and well Immunizations Vaccine Date Status Comments tetanus toxoid, reduced diphtheria toxoid, and acellular pertussis vaccine, adsorbed administered Note: [facility] bi-direct ional interface ; Source: Other Registry Pneumovax 23 administered Note: [facility] bi-d irectional interface ; Source: Other Registry Pneumo (2 yrs or older)(PPV) administered Source: New Immunization Record Influenza, split virus, trivalent, injectable, preservative free administered Note: [facility] bi-direct ional interface ; Source: Other Registry Influenza, seasonal, injectable, preservative free administered Note: [facility] bi-directional interface ; Source: Other Registry Pneumovax 23 administered Note: [facility] bi-d irectional interface ; Source: Other Registry Pneumo (2 yrs or older)(PPV) administered Note: Invalid documented admin date was //2008. ; Source: Other Provider Influenza, split virus, trivalent, injectable, contains preservative administered Note: [facility] bi-dire ctional interface ; Source: Other Registry Influenza, seasonal, injectable administered Note: [facility] bi-direct ional interface ; Source: Other Registry Influenza, split virus, trivalent, injectable, contains preservative administered Note: [facility] bi-dire ctional interface ; Source: Other Registry Influenza, seasonal, injectable administered Note: [facility] bi-direct ional interface ; Source: Other Registry tetanus and diphtheria toxoids, adsorbed, preservative free, for adult use (2 Lf of tetanus toxoid and 2 Lf of diphtheria toxoid) administered Note: MII C bi- directional interface ; Source: Other Registry Payers Payer name Insurance type Covered libertarian ID Authorlizettea tibarbara(s) [employer] CI [id number] Social History Type Description Quantity Date Captured Comments Sex Female Smoking Status No Information Chief Complaint And Reason For Visit No Information Reason For Referral Reason For Referral No Information Plan Of Treatment Date Type Action Status Goal DEXA Bone Density Study. Due on due Goal Herpes Zoster - Shingrix (2n d). Due on due Goal Tdap. Due on due Goal Vitamin D, 25-Hydroxy. Due o n due Goal Influenza. Due on 5 due Goal Colonoscopy. Due on 026 due Goal Prevnar 20. Due on 25 due Goal Cervical PAP smear. Due on N due Goal Smoking status. Due on due Goal Dermatology - Skin Screening . Due on due Goal Herpes Zoster - Shingrix (1s t). Due on due Goal Cervical PAP smear. Due on N due Goal DEXA Bone Density Study. Due on due Goal Smoking status. Due on due Goal Herpes Zoster - Shingrix (2n d). Due on due Goal Prevnar 20. Due on due Goal Tdap. Due on due Goal Dermatology - Skin Screening . Due on due Goal Influenza. Due on due Goal Herpes Zoster - Shingrix (1s t). Due on due Goal Vitamin D, 25-Hydroxy. Due o n due Goal Colonoscopy. Due on due Goal Herpes Zoster - Shingrix (2n d). Due on due Goal Vitamin D, 25-Hydroxy. Due o n due Goal Prevnar 20. Due on due Goal Dermatology - Skin Screening . Due on due Goal DEXA Bone Density Study. Due on due Goal Smoking status. Due on due Goal Herpes Zoster - Shingrix (1s t). Due on due Goal Cervical PAP smear. Due on due Goal Influenza. Due on due Goal Tdap. Due on due Goal Cervical PAP smear. Due on due Goal Vitamin D, 25-Hydroxy. Due o n due Goal Herpes Zoster - Shingrix (2n d). Due on due Goal Herpes Zoster - Shingrix (1s t). Due on due Goal Influenza. Due on due Goal Tdap. Due on due Goal Dermatology - Skin Screening . Due on due Goal DEXA Bone Density Study. Due on due Goal Smoking status. Due on due Goal Prevnar 20. Due on due Goal Smoking status. Due on due Goal DEXA Bone Density Study. Due on due Goal Cervical PAP smear. Due on A due Goal Tdap. Due on due Goal Vitamin D, 25-Hydroxy. Due o n due Goal Influenza. Due on due Goal Herpes Zoster - Shingrix (2n d). Due on due Goal Herpes Zoster - Shingrix (1s t). Due on due Goal Dermatology - Skin Screening . Due on due Goal Prevnar 20. Due on due Goal DEXA Bone Density Study. Due on due Goal Smoking status. Due on due Goal Dermatology - Skin Screening . Due on due Goal Influenza. Due on due Goal Tdap. Due on due Goal Prevnar 20. Due on due Goal Herpes Zoster - Shingrix (1s t). Due on due Goal Cervical PAP smear. Due on A due Goal Vitamin D, 25-Hydroxy. Due o n due Goal Herpes Zoster - Shingrix (2n d). Due on due Goal Prevnar 20. Due on due Goal Cervical PAP smear. Due on A due Goal DEXA Bone Density Study. Due on due Goal Herpes Zoster - Shingrix (2n d). Due on due Goal Smoking status. Due on due Goal Herpes Zoster - Shingrix (1s t). Due on due Goal Influenza. Due on due Goal Vitamin D, 25-Hydroxy. Due o n due Goal Dermatology - Skin Screening . Due on due Goal Tdap. Due on due Goal Herpes Zoster - Shingrix (2n d). Due on due Goal Vitamin D, 25-Hydroxy. Due o n due Goal Dermatology - Skin Screening . Due on due Goal Herpes Zoster - Shingrix (1s t). Due on due Goal Smoking status. Due on due Goal DEXA Bone Density Study. Due on due Goal Tdap. Due on due Goal Prevnar 20. Due on due Goal Cervical PAP smear. Due on due Goal Influenza. Due on due Goal Herpes Zoster - Shingrix (2n d). Due on due Goal Smoking status. Due on due Goal Tdap. Due on due Goal Prevnar 20. Due on due Goal Herpes Zoster - Shingrix (1s t). Due on due Goal Vitamin D, 25-Hydroxy. Due o n due Goal Dermatology - Skin Screening . Due on due Goal Cervical PAP smear. Due on due Goal DEXA Bone Density Study. Due on due Goal Influenza. Due on due Goal Cervical PAP smear. Due on due Goal Dermatology - Skin Screening . Due on due Goal DEXA Bone Density Study. Due on due Goal Herpes Zoster - Shingrix (2n d). Due on due Goal Prevnar 20. Due on due Goal Smoking status. Due on due Goal Influenza. Due on due Goal Herpes Zoster - Shingrix (1s t). Due on due Goal Tdap. Due on due Goal Vitamin D, 25-Hydroxy. Due o n due Goal Influenza. Due on due Goal Smoking status. Due on due Goal Tdap. Due on due Goal DEXA Bone Density Study. Due on due Goal Herpes Zoster - Shingrix (2n d). Due on due Goal Vitamin D, 25-Hydroxy. Due o n due Goal Dermatology - Skin Screening . Due on due Goal Prevnar 20. Due on due Goal Cervical PAP smear. Due on due Goal Herpes Zoster - Shingrix (1s t). Due on due Goal Influenza. Due on due Goal DEXA Bone Density Study. Due on due Goal Cervical PAP smear. Due on due Goal Prevnar 20. Due on due Goal Vitamin D, 25-Hydroxy. Due o n due Goal Herpes Zoster - Shingrix (2n d). Due on due Goal Dermatology - Skin Screening . Due on due Goal Tdap. Due on due Goal Herpes Zoster - Shingrix (1s t). Due on due Goal Smoking status. Due on due Goal Dermatology - Skin Screening . Due on due Goal Cervical PAP smear. Due on due Goal Herpes Zoster - Shingrix (1s t). Due on due Goal Tdap. Due on due Goal Smoking status. Due on due Goal Herpes Zoster - Shingrix (2n d). Due on due Goal Vitamin D, 25-Hydroxy. Due o n due Goal DEXA Bone Density Study. Due on due Goal Prevnar 20. Due on due Goal Influenza. Due on due Goal Dermatology - Skin Screening . Due on due Goal Vitamin D, 25-Hydroxy. Due o n due Goal DEXA Bone Density Study. Due on due Goal Herpes Zoster - Shingrix (2n d). Due on due Goal Influenza. Due on due Goal Herpes Zoster - Shingrix (1s t). Due on due Goal Prevnar 20. Due on due Goal Cervical PAP smear. Due on due Goal Smoking status. Due on due Goal Tdap. Due on due Goal Dermatology - Skin Screening . Due on due Goal Herpes Zoster - Shingrix (2n d). Due on due Goal Cervical PAP smear. Due on due Goal Vitamin D, 25-Hydroxy. Due o n due Goal DEXA Bone Density Study. Due on due Goal Prevnar 20. Due on due Goal Herpes Zoster - Shingrix (1s t). Due on due Goal Influenza. Due on due Goal Tdap. Due on due Goal Smoking status. Due on due Goal Dermatology - Skin Screening . Due on due Goal Smoking status. Due on due Goal Prevnar 20. Due on due Goal Tdap. Due on due Goal Herpes Zoster - Shingrix (1s t). Due on due Goal Influenza. Due on due Goal Vitamin D, 25-Hydroxy. Due o due Goal Herpes Zoster - Shingrix (2n d). Due on due Goal Cervical PAP smear. Due on due Goal DEXA Bone Density Study. Due on due Goal DEXA Bone Density Study. Due on due Goal Tdap. Due on due Goal Vitamin D, 25-Hydroxy. Due o due Goal Smoking status. Due on due Goal Herpes Zoster - Shingrix (2n d). Due on due Goal Cervical PAP smear. Due on due Goal Herpes Zoster - Shingrix (1s t). Due on due Goal Prevnar 20. Due on due Goal Dermatology - Skin Screening . Due on due Goal Influenza. Due on due Goal Influenza. Due on due Goal Prevnar 20. Due on due Goal Vitamin D, 25-Hydroxy. Due o n due Goal Herpes Zoster - Shingrix (1s t). Due on due Goal DEXA Bone Density Study. Due on due Goal Dermatology - Skin Screening . Due on due Goal Smoking status. Due on due Goal Cervical PAP smear. Due on N due Goal Herpes Zoster - Shingrix (2n d). Due on due Goal Tdap. Due on due Goal Dermatology - Skin Screening . Due on due Goal DEXA Bone Density Study. Due on due Goal Prevnar 20. Due on due Goal Smoking status. Due on due Goal Vitamin D, 25-Hydroxy. Due o n due Goal Tdap. Due on due Goal Cervical PAP smear. Due on O due Goal Herpes Zoster - Shingrix (1s t). Due on due Goal Herpes Zoster - Shingrix (2n d). Due on due Goal Influenza. Due on due Goal Prevnar 20. Due on due Goal Dermatology - Skin Screening . Due on due Goal Tdap. Due on due Goal Smoking status. Due on due Goal Influenza. Due on due Goal Vitamin D, 25-Hydroxy. Due o n due Goal Herpes Zoster - Shingrix (2n d). Due on due Goal Herpes Zoster - Shingrix (1s t). Due on due Goal DEXA Bone Density Study. Due on due Goal Cervical PAP smear. Due on O due Goal Smoking status. Due on due Goal Prevnar 20. Due on due Goal Influenza. Due on due Goal Vitamin D, 25-Hydroxy. Due o n due Goal DEXA Bone Density Study. Due on due Goal Tdap. Due on due Goal Dermatology - Skin Screening . Due on due Goal Herpes Zoster - Shingrix (1s t). Due on due Goal Cervical PAP smear. Due on due Goal Herpes Zoster - Shingrix (2n d). Due on due Goal Smoking status. Due on due Goal Tdap. Due on due Goal Influenza. Due on due Goal Cervical PAP smear. Due on S ep due Goal Herpes Zoster - Shingrix (1s t). Due on due Goal Dermatology - Skin Screening . Due on due Goal Prevnar 20. Due on due Goal Herpes Zoster - Shingrix (2n d). Due on due Goal DEXA Bone Density Study. Due on due Goal Vitamin D, 25-Hydroxy. Due o n due Goal Herpes Zoster - Shingrix (2n d). Due on due Goal Smoking status. Due on due Goal Herpes Zoster - Shingrix (1s t). Due on due Goal Influenza. Due on due Goal Vitamin D, 25-Hydroxy. Due o n due Goal Cervical PAP smear. Due on due Goal Dermatology - Skin Screening . Due on due Goal Prevnar 20. Due on due Goal DEXA Bone Density Study. Due on due Goal Tdap. Due on due Goal Herpes Zoster - Shingrix (2n d). Due on due Goal Prevnar 20. Due on due Goal Dermatology - Skin Screening . Due on due Goal Vitamin D, 25-Hydroxy. Due o n due Goal Smoking status. Due on due Goal Influenza. Due on due Goal Tdap. Due on due Goal Herpes Zoster - Shingrix (1s t). Due on due Goal Cervical PAP smear. Due on due Goal DEXA Bone Density Study. Due on due Goal Herpes Zoster - Shingrix (2n d). Due on due Goal Prevnar 20. Due on due Goal Cervical PAP smear. Due on due Goal Smoking status. Due on due Goal Vitamin D, 25-Hydroxy. Due o n due Goal Herpes Zoster - Shingrix (1s t). Due on due Goal DEXA Bone Density Study. Due on due Goal Influenza. Due on due Goal Dermatology - Skin Screening . Due on due Goal Tdap. Due on due Goal Herpes Zoster - Shingrix (1s t). Due on due Goal Herpes Zoster - Shingrix (2n d). Due on due Goal Cervical PAP smear. Due on due Goal Tdap. Due on due Goal DEXA Bone Density Study. Due on due Goal Influenza. Due on due Goal Smoking status. Due on due Goal Vitamin D, 25-Hydroxy. Due o n due Goal Prevnar 20. Due on due Goal Dermatology - Skin Screening . Due on due Goal Vitamin D, 25-Hydroxy. Due o n due Goal Herpes Zoster - Shingrix (2n d). Due on due Goal Tdap. Due on due Goal Smoking status. Due on due Goal Dermatology - Skin Screening . Due on due Goal Cervical PAP smear. Due on due Goal Prevnar 20. Due on due Goal Influenza. Due on due Goal DEXA Bone Density Study. Due on due Goal Herpes Zoster - Shingrix (1s t). Due on due Goal Influenza. Due on due Goal Herpes Zoster - Shingrix (2n d). Due on due Goal Herpes Zoster - Shingrix (1s t). Due on due Goal Tdap. Due on due Goal Cervical PAP smear. Due on due Goal Dermatology - Skin Screening . Due on due Goal Vitamin D, 25-Hydroxy. Due o n due Goal Prevnar 20. Due on due Goal DEXA Bone Density Study. Due on due Goal Smoking status. Due on due Goal Influenza. Due on due Goal Dermatology - Skin Screening . Due on due Goal Smoking status. Due on due Goal DEXA Bone Density Study. Due on due Goal Cervical PAP smear. Due on due Goal Vitamin D, 25-Hydroxy. Due o n due Goal Herpes Zoster - Shingrix (1s t). Due on due Goal Prevnar 20. Due on due Goal Tdap. Due on due Goal Herpes Zoster - Shingrix (2n d). Due on due Goal Influenza. Due on due Goal Tdap. Due on due Goal Vitamin D, 25-Hydroxy. Due o n due Goal Smoking status. Due on due Goal Cervical PAP smear. Due on due Goal Herpes Zoster - Shingrix (2n d). Due on due Goal Herpes Zoster - Shingrix (1s t). Due on due Goal Prevnar 20. Due on due Goal DEXA Bone Density Study. Due on due Goal Dermatology - Skin Screening . Due on due Goal Influenza. Due on due Goal Vitamin D, 25-Hydroxy. Due o n due Goal Herpes Zoster - Shingrix (1s t). Due on due Goal Cervical PAP smear. Due on due Goal Herpes Zoster - Shingrix (2n d). Due on due Goal Tdap. Due on due Goal Smoking status. Due on due Goal DEXA Bone Density Study. Due on due Goal Dermatology - Skin Screening . Due on due Goal Prevnar 20. Due on due Goal Influenza. Due on due Goal Prevnar 20. Due on due Goal Smoking status. Due on due Goal Dermatology - Skin Screening . Due on due Goal Colonoscopy. Due on due Goal Tdap. Due on due Goal DEXA Bone Density Study. Due on due Goal Cervical PAP smear. Due on due Goal Vitamin D, 25-Hydroxy. Due o n due Goal Herpes Zoster - Shingrix (1s t). Due on due Goal Herpes Zoster - Shingrix (2n d). Due on due Goal Herpes Zoster - Shingrix (2n d). Due on due Goal Dermatology - Skin Screening . Due on due Goal Cervical PAP smear. Due on due Goal Vitamin D, 25-Hydroxy. Due o n due Goal Prevnar 20. Due on due Goal Smoking status. Due on due Goal Influenza. Due on due Goal Herpes Zoster - Shingrix (1s t). Due on due Goal Tdap. Due on due Goal DEXA Bone Density Study. Due on due Goal Lifestyle education regardin g diet completed Goal Lifestyle education regardin g diet completed Goal Lifestyle education regardin g diet completed Goal Lifestyle education regardin g diet completed Goal Lifestyle education regardin g diet completed Referral Ordered: Modify IBD Disease Management Protocol Appointment date/timeframe: First Available [id number] Ordered: Stool Test Panel, Comprehensive Appointment date/timeframe: First Available [id number] Ordered: follow-up visit 1 Year Appointment date/timeframe: 1 Year [id number] Ordered: follow-up visit with IBD clinic [id number] Ordered: Breath Test Fructose Appointment date/timeframe: First Available [id number] Ordered: follow-up visit with Lanre Whitten MD 6 Months Appointment date/timeframe: 6 Months [id number] Ordered: Breath Test Glucose Appointment date/timeframe: First Available [id number] Ordered: follow-up visit with Sangeetha Dominguez PAC Left sided UC 1 Year Appointment date/timeframe: 1 Year [id number] Ordered: referred to Rheumatology joint pain, ulcerative colitis [id number] Ordered: follow-up visit with IBD MD or PA soon Appointment date/timeframe: soon [id number] Ordered: follow-up visit 6 Months Appointment date/timeframe: 6 Months [id number] Order: Lab OrderT Spot ([id number]), Body Site: Left Antecubital Fossa, Appointment on: , Collected on: [id number] History Of Present Illness Encounter Date Complaint History Of Prese nt Illness GI Symptoms or Concerns This is a 64-year-old female with history of left-sided ulcerative colitis currently on Skyrizi on body injection every 8 weeks who presents in follow-up after recent colonoscopy. Patient did suffer a stroke in April or 2024 and is currently on Eliquis.Patient just underwent a screening colonoscopy on 12/29/2024 which revealed some mild inflammation limited to the rectum. She was given a Prado score of 1. The ileum and the remainder of the colon appeared normal. One 4 mm inflammatory polyp was removed. Biopsy of the left colon showed mildly active chronic colitis with scattered epithelioid nonnecrotizing granulomas. Right colon biopsy with inactive chronic colitis also with rare epithelioid nonnecrotizing granulomas.As there was evidence of active disease, Dr. Whitten is seeking approval for Skyrizi to be dosed every 6 weeks instead of every 8 weeks.Patient does struggle with abdominal bloating and fatigue. She does have constipation and has yet to find an adequate regimen for management. She does see some red blood on the toilet paper when she wipes. Internal hemorrhoids were seen on her colonoscopy.IBD Hx:Left-sided ulcerative colitis, diagnosed in 2003.Suspicious for Crohn's colitis based on previous pathology in 2018, 2017, and 2007 w/ numerous granulomas. However difficult to re-subtype treated patients with IBD.CURRENT THERAPY:-Skyrizi (03/16/24 -)PRIOR THERAPY:-Inflectra 5mg/kg every 6 weeks (start 11/03/2023), changed to every 6 week dosing for first maintenance dose due to no clinical response. -Prednisone taper 07/2023-08/2023 (had significant side effects of insomnia, vision changes).-Budesonide (facial swelling, reoccurred on re-challenge)-Lialda 4.8 g daily (stopped 10/2023)-6 MP 50 mg daily (stopped 10/2023)-Mesalamine suppositories-Hydrocortisone suppositories-increased rectal bleedingENDOSCOPIES:-Flex sig 07/2023: Prado 2 inflammation in sigmoid and rectum. -Colonoscopy 02/2022: Mild inflammation in the rectosigmoid (Prado score 1) confirmed on biopsy; remainder of colon normal, normal TI-Colonoscopy in 2019 (intermittent rectal bleeding), active inflammation in the distal 20 centimeters of the colon. She was given a Prado score of 2. Biopsies of the right and left colon did show mild changes of inactive chronic inflammatory bowel disease.She avoids NSAIDs she does not smoke. HEALTH MAINTENANCE:-QuantiFERON indeterminant with negative T-spot in 07/2023-The patient is not interested in any vaccinations and has refused these through the years.-Due for surveillance colonoscopy in 12/2027. Additional Narrative IBD Hx:Left -sided ulcerative colitis, diagnosed in 2003.CURRENT THERAPY:-Skyrizi (03/16/24 -)PRIOR THERAPY:-Inflectra 5mg/kg every 6 weeks (start 11/03/2023), changed to every 6 week dosing for first maintenance dose due to no clinical response. -Prednisone taper 07/2023-08/2023 (had significant side effects of insomnia, vision changes).-Budesonide (facial swelling, reoccurred on re-challenge)-Lialda 4.8 g daily (stopped 10/2023)-6 MP 50 mg daily (stopped 10/2023)-Mesalamine suppositories-Hydrocortisone suppositories-increased rectal bleedingENDOSCOPIES:-Flex sig 07/2023: Prado 2 inflammation in sigmoid and rectum. -Colonoscopy 02/2022: Mild inflammation in the rectosigmoid (Prado score 1) confirmed on biopsy; remainder of colon normal, normal TI-Colonoscopy in 2019 (intermittent rectal bleeding), active inflammation in the distal 20 centimeters of the colon. She was given a Prado score of 2. Biopsies of the right and left colon did show mild changes of inactive chronic inflammatory bowel disease.She avoids NSAIDs she does not smoke. HEALTH MAINTENANCE:-QuantiFERON indeterminant with negative T-spot in 07/2023-The patient is not interested in any vaccinations and has refused these through the years.-Due for surveillance colonoscopy in 02/2024. Has scheduled but will have patient reschedule given likely change in treatment. GI Symptoms or Concerns 63-year- old woman with history of left-sided ulcerative colitis, presents for follow-up after restarting Skyrizi injections, and also recent stroke (04/2024), for which she is now on Eliquis, losartan, gabapentin.We have communicated in recent months regarding severe constipation after her stroke and hospitalization. She did a bowel cleanse with MiraLAX and Gatorade, and was using enemas periodically. This been several weeks since she has needed to use enemas. She is taking Colace 100 Mg twice per day and finds this to be helpful. She still is having bowel movements only every 3 to 4 days, and they are often hard, but she does not feel uncomfortable with this level of frequency. On the other hand, she does describe significant bloating. She is very frustrated with not being able to lose weight (she gained a lot of weight with her hospitalization). She is being more active with walking on a daily basis. She is trying to adjust her diet. She seems very frustrated, and at one point becomes tearful with regard to lack of progress after her stroke. When asked to detail her concerns, she is mostly concerned about feeling tired, and the weight gain and bloating. She denies blood in her stool or black stool. She does not have any flare symptoms leading up to Skyrizi injections. The injections are going quite well, and her daughter helps her with these.She reports that her daughter is getting this weekend and a small ceremony at home. They will be doing the cooking together. GI Symptoms or Concerns Tash lentz s a pleasant 63-year-old female with ulcerative colitis who presents for a patient teaching visit for Skyrizi. She completed induction infusions which she tolerated well. 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 She was seen by neurology and has follow-up in about a week as an outpatient in neurology clinic. She did respond well to thrombolytics, and is currently on Eliquis. She reports some mild residual weakness, but no other deficits.She has a history of visual aura migraines for many years, which would be mild and usually only once a month or every other month. Since starting Skyrizi she has noted these have increased in severity and frequency. She was having these episodes every day, not only including visual changes, but also significant headaches afterwards. She reports neurology did not think these were related to the stroke. Last time she had an episode was while she was still in the hospital on 05/09/2024.She does report Skyrizi has been very effective for her colitis. She got back to normal solid stools (even feeling a bit constipated, and starting a fiber supplement). She had no more urgency. She was not having any more bleeding. Now that she is about a week overdue for Skyrizi infusion, she has started having symptoms again. She was having bleeding (small amount of bright red tinge to the water) that started after discharge. She restarted mesalamine suppositories a few days ago, and bleeding has subsided for now. She is having more urgency and flatulence but not recurrent diarrhea yet. Additional Narrative IBD Hx:Left -sided ulcerative colitis, diagnosed in 2003.CURRENT THERAPY:-Skyrizi (03/16/24 -)-Mesalamine suppositoriesPRIOR THERAPY:-Inflectra 5mg/kg every 6 weeks (start 11/03/2023), changed to every 6 week dosing for first maintenance dose due to no clinical response. -Prednisone taper 07/2023-08/2023 (had significant side effects of insomnia, vision changes).-Budesonide (facial swelling, reoccurred on re-challenge)-Lialda 4.8 g daily (stopped 10/2023)-6 MP 50 mg daily (stopped 10/2023)-Mesalamine suppositories-Hydrocortisone suppositories-increased rectal bleedingENDOSCOPIES:-Flex sig 07/2023: Prado 2 inflammation in sigmoid and rectum. -Colonoscopy 02/2022: Mild inflammation in the rectosigmoid (Prado score 1) confirmed on biopsy; remainder of colon normal, normal TI-Colonoscopy in 2019 (intermittent rectal bleeding), active inflammation in the distal 20 centimeters of the colon. She was given a Prado score of 2. Biopsies of the right and left colon did show mild changes of inactive chronic inflammatory bowel disease.She avoids NSAIDs she does not smoke. HEALTH MAINTENANCE:-QuantiFERON indeterminant with negative T-spot in 07/2023-The patient is not interested in any vaccinations and has refused these through the years.-Due for surveillance colonoscopy in 02/2024. Has scheduled but will have patient reschedule given likely change in treatment. GI Symptoms or Concerns This is a pleasant 63-year-old woman with history of ulcerative proctosigmoiditis presenting to clinic today for follow-up. She is accompanied by her daughter.Patient was last seen by Dr. Whitten in September of this year at which time she was on maintenance therapy with mesalamine and mercaptopurine and was following up for recent flare. She had a flexible sigmoidoscopy in July 2023 due to flare send that showed moderate inflammation in the sigmoid and rectum. At that time she had improvement of her symptoms on prednisone but after she tapered off of it, symptoms recurred. She had significant side effects with prednisone including severe insomnia and declined restarting it. She was given a prescription for budesonide but had side effects of facial swelling. The medication was stopped and then restarted and the side effects recurred and she could not continue it.Ultimately, she was started on Inflectra 5 mg/kg in October of this year. She completed induction dosing on December 15, 2023. She had no clinical improvement and her first maintenance dose was therefore moved up to every 6-week dosing. She had her first maintenance dose on January 25. She reports that she has not had any clinical improvement after her most recent dose of Inflectra. She continues to experience variability in her stools ranging from 2 stools a day to upwards of 6 or 7 stools in a day that are loose (described as Coke type 6). She has associated tenesmus and abdominal cramping. She had rectal bleeding with every bowel movement up until the last 4 days. She was started on mesalamine suppositories, which has resolved the bleeding but has not improved any of the other symptoms. She continues to experience rectal urgency. Mesalamine enemas were sent to her pharmacy and she has not heard anything from the pharmacy on picking up the prescription. She continues to be fatigued. She denies any weight loss, fevers, chills, vomiting.-----IBD Hx:Left-sided ulcerative colitis, diagnosed in 2003.CURRENT THERAPY:Inflectra 5mg/kg every 6 weeks (start 11/03/2023), changed to every 6 week dosing for first maintenance dose due to no clinical response. Mesalamine suppositories (last 4 days)PRIOR THERAPY:-Prednisone taper 07/2023-08/2023 (had significant side effects of insomnia, vision changes).-Budesonide (facial swelling, reoccurred on re-challenge)-Lialda 4.8 g daily (stopped 10/2023)-6 MP 50 mg daily (stopped 10/2023)-Mesalamine suppositories-Hydrocortisone suppositories-increased rectal bleedingENDOSCOPIES:-Flex sig 07/2023: Prado 2 inflammation in sigmoid and rectum. -Colonoscopy 02/2022: Mild inflammation in the rectosigmoid (Prado score 1) confirmed on biopsy; remainder of colon normal, normal TI-Colonoscopy in 2019 (intermittent rectal bleeding), active inflammation in the distal 20 centimeters of the colon. She was given a Prado score of 2. Biopsies of the right and left colon did show mild changes of inactive chronic inflammatory bowel disease.She avoids NSAIDs she does not smoke. HEALTH MAINTENANCE:-QuantiFERON indeterminant with negative T-spot in 07/2023-The patient is not interested in any vaccinations and has refused these through the years.-Due for surveillance colonoscopy in 02/2024. Has scheduled but will have patient reschedule given likely change in treatment. Additional Narrative -----IBD Hx :Left-sided ulcerative colitis, diagnosed in 2003.CURRENT THERAPY:-Lialda 4.8 g daily-6 MP 50 mg daily-Mesalamine suppositoriesPRIOR THERAPY:-Prednisone taper 07/2023-08/2023 (had significant side effects of insomnia, vision changes)ENDOSCOPIES:-Flex sig 07/2023: Prado 2 inflammation in sigmoid and rectum. -Colonoscopy 02/2022: Mild inflammation in the rectosigmoid (Prado score 1) confirmed on biopsy; remainder of colon normal, normal TI-Colonoscopy in 2019 (intermittent rectal bleeding), active inflammation in the distal 20 centimeters of the colon. She was given a Prado score of 2. Biopsies of the right and left colon did show mild changes of inactive chronic inflammatory bowel disease.She avoids NSAIDs she does not smoke. HEALTH MAINTENANCE:-Hep B nonreactive-Quanitferon indeterminant with negative T-spot in 07/2023-The patient is not interested in any vaccinations and has refused these through the years.-Due for surveillance colonoscopy in 02/2024 GI Symptoms or Concerns 62-year- old woman with history of ulcerative proctosigmoiditis, currently with flare symptoms and recent flexible sigmoidoscopy showing active inflammation (Prado score 2), presents for follow-up accompanied by her daughter to discuss treatment options. She has been on maintenance therapy with mesalamine and mercaptopurine, but seems not to be completely effective given recent flare. She was treated with prednisone after recent flexible sigmoidoscopy showed active inflammation. She did have complete resolution of her symptoms on the prednisone, but she has had recurrence of symptoms ever since completing the prednisone taper about 2 weeks ago. She did have significant side effects from the prednisone. Currently she describes bloating, tenesmus, urgency with blood in mucus passage multiple times per day, loose stools. She is actually only having stool output once or twice per day, but she has urgency with mucus passage every couple hours. She denies fevers. No other ext GI Symptoms or Concerns GI Symptoms or Concerns This is a 62-year-old female with chronic left-sided ulcerative colitis initially diagnosed as rectosigmoid iritis, maintained on mesalamine and 6 MP who presents for evaluation of abdominal discomfort and rectal bleeding. Patient was diagnosed with ulcerative colitis in 2003. She has been maintained on mesalamine and 6 MP for many years. She notes that for the past 2-3 weeks she is struggled with passing blood per rectum and mucus per rectum. She does not have significant diarrhea. She does have abdominal cramping and gas. She does struggle with constipation. She can skip up to 2-3 days without passing a bowel movement. She is tried using MiraLax on a regular basis, however it does cause her some psychological distress she connects this with bowel prep and often we can not force herself to take the MiraLax. She denies any vomiting. No unintentional weight loss. No fever and no chills. She has tried magnesium citrate in the past but again connects this to colonoscopy Additional Narrative IBD Hx:Left -sided ulcerative colitis, diagnosed in 2003.CURRENT THERAPY:-Lialda 4.8 g daily-6 MP 50 mg daily-Occasional use of mesalamine suppositoriesENDOSCOPIES:-Colonoscopy 02/2022: Mild inflammation in the rectosigmoid (Prado score 1) confirmed on biopsy; remainder of colon normal, normal TI-Colonoscopy in 2019 (intermittent rectal bleeding), active inflammation in the distal 20 centimeters of the colon. She was given a Prado score of 2. Biopsies of the right and left colon did show mild changes of inactive chronic inflammatory bowel disease.She avoids NSAIDs she does not smoke. HEALTH MAINTENANCE:The patient is not interested in any vaccinations and has refused these through the years.Due for surveillance colonoscopy in [id number] woman with history of ulcerative colitis (mostly limited to the left colon and particularly rectosigmoid), maintained on mesalamine and mercaptopurine for many years, presents for follow-up after recent colonoscopy for surveillance purposes showed mild ( Prado 1 score) inflammation in the rectosigmoid. GI Symptoms or Concerns This is a 62-year-old female chronic left-sided ulcerative colitis (particularly rectosigmoid), maintained on mesalamine and mercaptopurine, who presents an annual follow-up. Patient reports that since her visit last March she does use mesalamine suppositories intermittently when she sees blood or mucus in her stool. In her meeting with Dr. Whitten last year, there was discussion of her colonoscopy which did show mild inflammation in the rectosigmoid which was given a Prado score of 1. Different treatment options were discussed and the patient wanted to go forward with mesalamine suppositories now on an as-needed basis. She reports that it is fairly rare that she will pass mucus or blood. If she does she will use a suppository for 2-3 days with complete symptom resolution. In discussion of her bowel habits further, it appears that she may constipated. She reports not emptying completely and straining. Occasionally she will have some right lower quadrant discomfort a Comment 61-year-old lul n with history of ulcerative colitis (mostly limited to the left colon and particularly rectosigmoid), maintained on mesalamine and mercaptopurine for many years, presents for follow-up after recent colonoscopy for surveillance purposes showed mild ( Prado 1 score) inflammation in the rectosigmoid. Initially she denies any symptoms of colitis flare. She reports bowel movements every 1-2 days. She does state that sometimes she has to be careful about passing gas, because she may have some passage of mucus. Rarely she has a small amount of blood passed with mucus as well. She denies any abdominal pain. She states that her stools are formed, and that there is no blood in her stools or black stool. She does relate some generalized fatigue, which she states has been present for many years without change. She states she has had thyroid testing previously. Most recent labs from 11/2021 were normal, including no signs of anemia. She did labs per protocol today be Additional Narrative IBD:Left-si ded ulcerative colitis, diagnosed in 2003.CURRENT THERAPY:-Lialda 4.8 g daily-6 MP 50 mg daily-Occasional use of mesalamine suppositoriesENDOSCOPIES:-Colonoscopy 02/2022: Mild inflammation in the rectosigmoid (Prado score 1) confirmed on biopsy; remainder of colon normal, normal TI-Colonoscopy in 2019 (intermittent rectal bleeding), active inflammation in the distal 20 centimeters of the colon. She was given a Prado score of 2. Biopsies of the right and left colon did show mild changes of inactive chronic inflammatory bowel disease.She avoids NSAIDs she does not smoke. HEALTH MAINTENANCE:The patient is not interested in any vaccinations and has refused these through the years.Due for surveillance colonoscopy in 02/2024 GI Symptoms or Concerns GI Symptoms or Concerns This is a 61-year-old female with history of left-sided ulcerative colitis currently on Lialda and 6 MP 50 milligrams daily presents for annual follow-up. Patient notes that she is been struggling significantly with abdominal bloating as well. Patient was diagnosed with ulcerative colitis in approximately 2003. She had been managed on some form of 5 ASA 6 MP intermittently for the past 18 years. She notes that she has regular bowel movements at least 1 per day. She denies any rectal bleeding. She denies rectal pain but can become very bloated after meals. Passing gas or passing stool often will relieve the bloating. She denies constipation. She denies straining significantly. She can not recall if bloating as a symptom of a flare for her she has not had recent UC flares. She denies any unintentional weight loss, fever, chills, nausea or vomiting. No extraintestinal symptoms. Last colonoscopy was in 2019. This was completed because of intermittent rectal bleeding. The colonoscopy showed active inflammation in the distal 20 centimeters of the colon. She was given a Prado score of 2. Biopsies of the right and left colon did show mild changes of inactive chronic inflammatory bowel disease. Patient reports that she is compliant with her medicines. If she ever sees rectal bleeding she will use a Canasa suppository as well. The patient is overdue for a screening colonoscopy. She does however have this scheduled in February. In the past the patient has had significant leukopenia with 6 MP doses above 50 milligrams. She avoids NSAIDs she does not smoke. Recent lab work in November shows a normal white blood cell count. She does have very minimal elevation in her ALT. If persistently elevated could consider liver ultrasound and thiopurine metabolites. The patient is not interested in any vaccinations and has refused these through the years. GI Symptoms or Concerns Tash matias is a 60-year-old female with medical history of left-sided ulcerative colitis, currently maintained on Lialda and 6-MP 50 mg.The patient has had ulcerative colitis since at least 2003. She has been managed on some form of mesalamine and 6-MP intermittently throughout her course. She was last seen as a telephone consult in September 2019. At that time, she was not having any GI symptoms. She continues to feel well from a GI standpoint. She has one bowel movement per day. This is formed stool. She denies any diarrhea or urgency. She is not seeing any blood. She does not have any abdominal pain. There is no nausea or vomiting. No fevers, no chills. No unintentional weight loss. She denies any joint pain, skin changes, or vision changes.Last colonoscopy was in 2018. This was completed because of some intermittent rectal bleeding. The colonoscopy showed active inflammation in the distal 20 cm of the colon. She was given a Prado score of 2. Biopsies of the right a GI Symptoms or Concerns GI Symptoms or Concerns This tel evisit was completed for Tash Ramirez, date : 1960. Consent was obtained. She was the only present. Total time spent in medical consultation was 15 minutes.The patient has a history of left-sided ulcerative colitis. Her disease extends to the mid transverse colon. She is on mesalamine 4.8 g daily and 50 mg of 6-MP. The patient was last seen in clinic in December of 2018. At that time, she reported some intermittent bleeding. A colonoscopy in 2018 did show active inflammation in the distal 20 cm of the colon. She is given a Prado score of 2. Biopsies of the right and left colon did show mild changes of inactive chronic inflammatory bowel disease. The patient is compliant with her medications. She had some rectal bleeding last week without any diarrhea and no abdominal pain. She started using Canasa and it has since resolved. She has no perfuse diarrhea, melena, and her hematochezia has resolved. She is maintaining a stable weight. No fevers, no chills. GI Symptoms or Concerns Tash matias is a 58-year-old female with left-sided ulcerative colitis, now extending to the mid transverse colon, on mesalamine and 6-MP, who presents in followup.Patient is currently maintained on Lialda 4.8 g daily and 50 mg of 6-MP. In the past, she struggled with leukopenia, which is why her dose is at 50. Today, fortunately, she is feeling well. She has 1 bowel movement per day and there is no urgency or rectal bleeding. However, in October, she was experiencing fairly persistent rectal bleeding. She knew that she was due for her screening colonoscopy and did follow up with this exam. Findings include active inflammation in the distal 20 cm of the colon. She was given a Prado score of 2. Biopsies of the right and left colon did show mild changes of inactive chronic colitis. It was interesting in that there was the presence of scattered granulomas which would be more suggestive of Crohn's disease. It was difficult to assess as the patient had been treated. The pat GI Symptoms or Concerns Tash matias is a 57-year-old female with ulcerative colitis, now extending to the mid transverse colon, on mesalamine and 6-MP, who presents today in followup.Currently, the patient feels well. She states that she is having 1 formed bowel movement each day. Occasionally, she will see some mucus and red blood when she wipes. She has no abdominal pain and no rectal pain. There is no nausea or vomiting. She is compliant with her Lialda 4 tablets daily and 50 mg of 6-MP. She has struggled with leukopenia, which is why her dose is at 50. There is no significant urgency. No nighttime episodes. When the patient does see some red blood and mucus, she will use Canasa suppositories for typically 3 to 5 days until this has resolved. The patient does have a history of internal hemorrhoids as well.Patient was initially diagnosed in 2001 with ulcerative proctosigmoiditis. She was started on 6-MP and Asacol. However, she stopped all these medications for approximately 2 to 3 years GI Symptoms or Concerns Tash matias is a 56-year-old female with a medical history of ulcerative colitis, who presents today for followup.The patient was initially diagnosed in 2001 with ulcerative proctosigmoiditis. After diagnosis, she was started on 6-MP and Asacol. However, she stopped these medications for approximately one to two years between 2014 and 2015. She was preferring holistic remedies to prescription medication. Unfortunately in May 2016, she became symptomatic with hematochezia and diarrhea. She was using the bathroom reports 15 to 20 times per day. In May 2016, flexible sigmoidoscopy was done. There was inflammation from the rectum extending all the way through to the mid distal transverse colon. Inflammation was more active in the sigmoid and rectum. Internal hemorrhoids were seen. Biopsies of the left colon showed mildly active chronic colitis. Rectal biopsy showed moderately active and chronic colitis. No dysplasia. The patient's proctosigmoiditis had extended to left- GI Symptoms or Concerns Tahs matias is a 56-year-old female, with a medical history of ulcerative proctosigmoiditis, who presents today for followup evaluation.The patient was diagnosed in 2001 with ulcerative proctosigmoiditis. After diagnosis, she was started on 6-MP and Asacol, however, for most of 2014 and 2015, she was not on any medications. She had been feeling well without GI symptoms. She wanted to try more holistic remedies. In May 2016, she became symptomatic with worsening diarrhea and hematochezia. She had been using the bathroom upwards of 15 to 20 times per day. A flexible sigmoidoscopy was completed in May. Endoscopically, there was inflammation from the rectum all the way through the distal transverse colon. The inflammation was more active in the sigmoid and the rectum. There were internal hemorrhoids seen. Biopsies of the rectum showed moderately active chronic colitis. Biopsies of the left colon showed mildly active chronic colitis. There is no evidence for dysplasia. I GI Symptoms or Concerns Tash matias is a 55-year-old female with a history of ulcerative proctosigmoiditis who presents today in followup after a flexible sigmoidoscopy for hematochezia and diarrhea.The patient was diagnosed in 2001 with ulcerative proctosigmoiditis. She had been on using both 6-MP and Asacol initially at the time of her diagnosis. However, for at least the past year, she has stopped all medications because she has been feeling well. She also wanted to try more holistic remedies and follows with a functional medicine doctor. Unfortunately, over the past few months, she has been having worsening diarrhea with blood. She has been going to the bathroom upwards of 15 to 20 times per day. She was agreeable to a flexible sigmoidoscopy and completed this on June 13. Findings include inflammation from the rectum all the way through the distal transverse colon. The inflammation appeared more active in the sigmoid and rectum. There were also internal hemorrhoids seen. Biopsies of the r GI Symptoms or Concerns Tash matias is a 55-year-old female with a medical history of ulcerative proctosigmoiditis who presents today with abdominal pain, fecal frequency, and hematochezia.Patient was last seen in clinic in May 2015. At that time, she had not been using 6-MP or Asacol due to potential side effect profiles. The patient has been off of all medication since last year. She prefers holistic medicines and is following with a functional medicine doctor. However, since approximately the past six months, she has had worsening diarrhea with blood in her stool. More recently over the past month, she cites going to the bathroom 20 times a day. For the past two weeks, she has only been passing red blood. She cites that she has generalized abdominal pain, primarily on her left side. She has been eating and drinking, but adheres to a very strict elimination diet. She believes that she will be able to heal herself through good nutrition. She no longer consumes sugar, dairy, processed foods, GI Symptoms or Concerns This is a 54-year-old female who returns for followup of her ulcerative proctosigmoiditis. She was last seen in December 2014 after she had stopped her Asacol and 6-MP and had a flare that did not respond to hydrocortisone enemas and required prednisone. She reluctantly agreed to go back on 6-MP and Asacol was switched to Lialda. Most of the time since then, she has done well with slightly loose stools, but only a few times per day without bleeding. She does have some suprapubic abdominal pain, but decreases with bowel movements. She has only been taking the 6-MP 50 mg five days per week and Lialda she has only been doing two tablets per day. She mentions having two flares over the past few months that lasted for two to five days each. During the flare, she had bleeding with every bowel movement and would have up to 15 or 20 loose stools per day. Now, she is back to her baseline with a few semi-solid and semi-urgent stools per day. She had lost about ten pounds during these f Additional Narrative Disease: Ul cerative proctosigmoiditis diagnosed in 2001Diagnostics:-Colonoscopy 11/2014: mild to moderate ulcerative proctitis in rectum up to 15cm (after stopping all meds for 3 monthsCurrent treatment: Lialda 2.4gm, 6MP 50mg 5x/weekPrior medical treatment: Prednisone x 4 weeks in 2014. Asacol. 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 For about four years, she had been maintained on low-dose Asacol about 400 to 800 mg per day plus 6-MP 50 mg two times per week and this completely controlled her colitis and she had no flares for many years. She then wanted to go off all medications and stopped her medications this summer, which prompted a flare of her colitis. She tried going back on Asacol and 6-MP for three weeks, but symptoms continued to worsen and she eventually underwent a colonoscopy on December 21 that showed [id number] ulcerative colitis just in her rectum up to 15 cm. She was switched from Asacol to Lialda and given a four-week course of prednisone. She had also tried some hydrocortisone enemas that seemed to make the bleeding worse. She comes in today saying that after about 10 days of prednisone, she is starting to have no bleeding and formed, but soft bowel movements and is quite happ GI Symptoms or Concerns This is a pleasant 53-year-old female presenting to clinic today for routine followup of her ulcerative colitis.The patient was diagnosed with ulcerative proctosigmoiditis in 2001. She was initially placed on Asacol and did well for several years without any issues. She developed a significant flare in 2007 that required prednisone and eventually was transitioned to 6-MP. She did have a colonoscopy at that time that showed active proctosigmoiditis with biopsies of the sigmoid and rectum that showed mild [id number] active disease. An ascending and transverse colon biopsies showed scattered, non-necrotizing granulomas. Descending colon biopsy was normal.The patient was followed by Kervin Vaughn PA-C for a number of years and had reported side effects with these medications. She only agreed to take very low doses. She was eventually placed on 6-MP 50 mg three times a week and this actually caused leukopenia. It appears her white blood cell count had dropp GI Symptoms or Concerns Tash matias is a 53-year-old female who presents to clinic today in routine followup. The patient was last seen by Jason HUYNH in August of 2013. The patient has a history of ulcerative proctosigmoiditis which was diagnosed in 2001. She was initially placed on Asacol and did well for several years without any issue. She developed a significant flare in 2007 that required prednisone and eventually 6 mercaptopurine.The patient was incredibly concerned about possible side effects with these medications. So she only agreed to take low doses. She eventually was placed on 6-MP 50 mg three times a week and this actually caused a quite significant leukopenia. This dose was eventually decreased to once a 50 mg twice a week and she still does have a white count in the range of 4.3 to 3.2 over the last year. The patient denies any significant infections, cold virus over the last 5 years. The patient comes in today stating that she continues to feel quite well. She denies any ab GI Symptoms or Concerns The symp toms began 12 years ago. The symptoms are reported as being asymptomatic. The symptoms occur randomly. The location is proctosigmoiditis. Relieving factors include Asacol/6-MP. Tash Ramirez returns to clinic today for routine six-month followup of ulcerative proctosigmoiditis. This was diagnosed in 2001. She had been on Asacol and a few years ago she had quite a significant flare that required the initiation of mercaptopurine. Over the years, she has been concerned about side effects to these medications and so she has only agreed to take low doses. She takes Asacol 800 mg once a day and mercaptopurine 50 mg three times a week. She states that in May, she wanted to try going down to twice a week on the mercaptopurine to see how she would do. So far, she has not noticed any return of symptoms. She is due for protocol labs today and she is wondering what her labs will look like after making this change. She continues to struggle with fatigue which has been an issue Functional Status Date Functional Assessmen t No Information Instructions Date Instruction Additional Infor partha Diverticulosis/Diverticulitis Re lated to Colorectal polyps Colon Polyps Related to Color ectal polyps Hemorrhoids Related to Color ectal polyps Colon Cancer Prevention Related to Colorectal polyps -I will send a josé antonioa ge to our biologic department regarding our visit today to update your clinical documentation to send with request for insurance approval for Skyrizi.-In the interim, trial mesalamine enemas that were sent to the pharmacy already. If you are having trouble holding in the medication, you can switch back to mesalamine suppositories.-I will have our office cancel your upcoming colonoscopy. This will be rescheduled pending change in treatment.-Continue to avoid NSAID medications.-You can keep your infusion appointment for March 08. We may be able to switch your infusion to Skyrizi during that appointment time.-You will need a follow-up visit with Dr. Whitten in 3 to 4 months. Preferably after your first maintenance dose. Contact our office with any questions in the interim. Related to Ulcerative (chronic) rectosigmoiditis with rectal bleeding Constipation Related to Const ipation, unspecified constipation type Take one capful/pack et (17 grams) of Miralax daily Related to Constipation, unspecified constipation type High Fiber Diet Related to Const ipation, unspecified constipation type Diverticulosis/Diverticulitis Re lated to Ulcerative (chronic) rectosigmoiditis with rectal bleeding Colon Cancer Prevention Related to Ulcerative (chronic) rectosigmoiditis with rectal bleeding High Fiber Diet Related to Ulcer ative (chronic) rectosigmoiditis with rectal bleeding Lifestyle education regarding di et Related to Dietary counseling and surveillance Colon Cancer Prevention Related to Other ulcerative colitis without complication IBD Folder Related to Chron ic ulcerative rectosigmoiditis with rectal bleeding Recheck labs and add Canasa suppositories every day for a week and then two to four days per week thereafter. We did discuss that 6-MP does have a slight increased risk of lymphoma, but Asacol does not add to that risk, nor does Lialda. She is adamant that the [facility] pharmacy information on mercaptopurine says that Asacol specifically worsens lymphoma risk. She wishes to get off medications completely and I told her that we are under treating her disease and that she will continue to have problems this way, but she does not want to increase her medications at all. I will refill her 6-MP and Lialda. I did tell her that we may need to use prednisone again because her disease is not being adequately treated and that that may be worse then have to take full doses of 6-MP and Lialda, but she still wishes to minimize her medication use. Related to Ulcerative (chronic) rectosigmoiditis with rectal bleeding We had an extensive discussion about her past ulcerative colitis and her prior treatments and she expressed to me several times that she wishes to be off all medications for her ulcerative colitis. I told her that I do not think that she will be able to go off all medications and that she likely will continue to flare or not be able to stop her prednisone if she is just doing Lialda alone. She understands this and reluctantly would agree to go back on low-dose 6-MP since it worked so well for many years as well as Lialda. We discussed the possibility that she may not tolerate the 6-MP or it may not entirely work since we have to use such a low dose and that she may need to go on methotrexate or Humira, but she is very reluctant to even discuss other immune suppressing medications because of her aversion to medication use.For now, she will increase her Lialda to 4.8 g per day and use 50 mg of 6-MP two times per week and check labs every month for the next three months. She will call us if she connected off the prednisone as she may need another course of prednisone before the 6-MP it is at full strength.I recommended a flu vaccine, but she says that she does not believe in flu vaccines and refuses. Related to Chronic ulcerative rectosigmoiditis, with rectal bleeding Lifestyle education regarding di et Related to Dietary counseling and surveillance Colon Cancer Prevention Related to Chronic ulcerative rectosigmoiditis without complications Colonoscopy I recommended that s he increase her Asacol HD to 4.8 g per day for the next two weeks and monitor her symptoms. If there is no significant change at that time, I recommended to try this for two to three weeks. If this does not control her symptoms, we discussed a course of oral prednisone. I have ordered a C. diff stool tests today. I provided her information on the other 5-ASA medications and asked her to check with her insurance to see if a different mesalamine product would be more affordable. She is due for a repeat pneumonia vaccination, last in 2008. She will have this done today. I have provided her the patient educational materials on biologic therapies today as well. At this point, she has not been seen by a physician in the number of years and I recommended having her follow up with one of her IBD specialists, Dr. Jasso or Dr. Solis in two months. If her symptoms worsen in the interim, a flexible sigmoidoscopy would be indicated. Related to Ulcerative Proctosigmoiditis Low Fiber Diet Related to Ulcer ative Proctosigmoiditis Remicade (infliximab) Related to Ulcerative Proctosigmoiditis Humira (adalimumab) Related to U lcerative Proctosigmoiditis Lifestyle education regarding di et Related to Dietary surveillance and counseling Lifestyle education regarding di et Related to Dietary surveillance and counseling We will continue the se medications. We will check protocol labs today. We will see what her labs look like, especially her white count. If her white count has gone up into the upper end of the range of normal, she will go back on three times a week. She typically has a white count around 4 to 5 and we would like to keep her around this area to know that the medication is active in her system. I encouraged her to call us right away if she has any flare symptoms. Otherwise, we will see her in six months for routine followup. Related to Dietary Surveil/children counselor Lifestyle education regarding di et Related to Dietary surveillance and counseling Assessments Type Assessment Date No Information Patient Care Teams Name Effective Dates (start - stop) Status Members No Information
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
--- OUTSIDE RECORDS SUMMARY | 2025-01-30 10:00 | XMS_ITS | Encounter Summary ---
Author Organization [facility] Address [address] [place] [id number] Care Team Providers Care Mechanical Systems Engineer Name Role Phone Ely Montgomery DO Primary Care Provider [phone] ReevesGracie porras OD Unavailable [phone] Amy Ingram PA-C Unavailable Nehemiah Jeannieoren Munguia PA-C Unavailable [phone] ReevesBhargaviGracie OD Unavailable Reason for Referral * CV Testing (Routine) - Pending ReviewSpecialtyDiagnoses / ProceduresReferred By ContactReferred To Contact Diagnoses Cerebrovascular accident (CVA) involving large vessel (H) Cardiomyopathy, unspecified type (H) Procedures Echocardiogram Complete ZZHC TTE W/DOPPLER, COMPLETE ZZHC ECHO COMPLETE W DOPPLER W CONTRAST ZZHC ECHO COMPLETE W DOPPLER W/O CONTRAST ZZHC IV PUSH SINGLE, INITIAL SUBSTANCE ZZHC US GUIDE FOR PERICARDIOCENTESIS ZZHC ECHO MYOCARD BX ZZC INJECTION, PERFLUTREN LIPID MICROSPHERES, PER ML ZZHC STATISTIC IV PUSH SINGLE INITIAL SUBSTANCE OR ECHO MYOCARD BX OR INJECTION, PERFLUTREN LIPID MICROSPHERES, PER ML OR TTE W/DOPPLER, COMPLETE OR IV PUSH SINGLE, INITIAL SUBSTANCE OR TTE W/DOPPLER, COMPLETE OR TTE W/DOPPLER, COMPLETE HC US GUIDE FOR PERICARDIOCENTESIS HC ECHO MYOCARD BX HC IV PUSH SINGLE, INITIAL SUBSTANCE HC STATISTIC IV PUSH SINGLE INITIAL SUBSTANCE HC ECHO COMPLETE W DOPPLER W CONTRAST HC ECHO COMPLETE W DOPPLER W/O CONTRAST Amy Ingram PA-C [address] [place] [address] Phone: tel: fax: Referral IDStatAtul DateExpiration DateVisits RequestedVisits [id number] MAINTENANCE TECHNICIAN Reason for Visit * ReasonCommentsRECHECKTrouble with fatigue but she can't sleep, weight gain, severe constipation, recent change from UC to Chron's, SOB Encounter Details DateTypeDepartmentCare Team (Latest Contact Info)Tfsqzcxdkru07/08/2025 10:00 AM CSTOffice Visit [facility] - [address], [address] [place] [address] Amy Ingram PA-C [address] [place] [address] Cerebrovascular accident (CVA) involving large vessel (H) (Primary Dx); Cardiomyopathy, unspecified type (H) Social History Tobacco UseTypesPacks/DayYears UsedDateSmoking Tobacco: FormerCigarettes Smokeless Tobacco: NeverAlcohol UseStandard Drinks/WeekCommentsNot Currently0 (1 standard drink = 0.6 oz pure alcohol)occPHQ-2AnswerDate RecordedPHQ-2 Score2 06/14/2024dolescent EducationAnswerDate RecordedGetting School Help NeededNot on file11/16/2022Food InsecurityAnswerDate RecordedWithin the past 12 months, did you worry that your food would run out before you got money to buy more?No 05/08/2024Within the past 12 months, did the food you bought just not last and you didn???t have money to getmore?No05/08/2024Housing StabilityAnswerDate RecordedDo you have housing? (Housing is defined as stable permanent housing and does not include staying outside in a car, in a tent, in an abandoned building, in an overnight custodial, or couch-surfing.)No05/08/2024re you worried about losing your housing?05/08/2024Financial Resource StrainAnswerDate Recorded Within the past 12 months, have you or your family members you live with been unable to get utilities (heat, electricity) when it was really needed?No 05/08/2024Transportation NeedsAnswerDate RecordedWithin the past 12 months, has lack of transportation kept you from medical appointments, getting your medicines, non-medical meetings or appointments, work, or from getting things that you need?No05/08/2024Interpersonal SafetyAnswerDate RecordedDo you feel physically and emotionally safe where you currently live?Yes06/06/2024Within the past 12 months, have you been hit, slapped, kicked or otherwise physically hurt by someone?No06/06/2024Within the past 12 months, have you been humiliated or emotionally abused in other ways by your partner or ex-partner?No06/06/2024 CommentsNoSex and Gender InformationValueDate RecordedSex Assigned at BirthNot on fileLegal CbqShnwzh62/04/2012 3:26 AM CSTGender IdentityNot on file Sexual OrientationNot on filedocumented as of this encounter Last Filed Vital Signs Vital SignReadingTime TakenCommentsBlood Rbhjpvrb855/8312 10:01 AM TIRE MAINTENANCE TECHNICIAN Gfmmg168701/30/2025 10:01 AM CSTTemperature--Respiratory Rate--Oxygen Saturation 99%01/30/2025 10:01 AM CSTInhaled Oxygen Concentration--Weight--Height--Body Mass Index--documented in this encounter Patient Instructions * Patient Instructions* Amy Ingram PA-C - 01/30/2025 10:00 AM TIRE MAINTENANCE TECHNICIAN Images from the original note were not included. Stroke Resources and Support Groups [place] Stroke Association strokemn.org/resources/index.php strokemn.org/resources/support.php The [place] St[employer] Stroke Support Group Finder [place] [employer] Stroke Prevention Recommendations High blood pressure, or hypertension, is a leading cause of stroke and the most significant controllable risk factor. You should aim to keep your blood pressure below 130/80. Smoking cessation: The nicotine and carbon monoxide in cigarette smoke damage the cardiovascular system and pave the way for a stroke. If you use nicotine, please reach out to your primary care provider for assistance with quitting or consider utilizing one of [place]'s free quit support programs (https://www.[facility]/tobacco/quitting/index.html) If you have Type 1 or 2 diabetes, control you blood sugar. You should aim to keep your HGBA1C below7.0. High cholesterol increases stroke risk. Aim to keep your LDL cholesterol between 40 and 70. Eat an overall health dietary pattern that emphasizes: - a wide variety of fruits and vegetables - whole grains and products made up of mostly whole grains - healthy sources of protein (mostly plants such as legumes and nuts; fish and seafood; low-fat or non-fat dairy; and, if you eat meat and poultry, ensuring it is lean and unprocessed) - liquid non-tropical vegetable oils - minimally processed foods - minimize intake of added sugars - foods prepared with little or no salt - limited or preferably no alcohol intake Excess body weight and obesity are linked with an increased risk of high blood pressure, diabetes, heart disease, and stroke. Losing as little as 5 to 10 pounds can make a significant difference in your risks. [facility] has a Comprehensive Weight Management program if you would like assistance/support: https://www.[facility].org/treatments/ayuhgmrwcpafu-ncxnxk-xoqurlgein Aim for being active at least 150 minutes a week, but if you don't want to sweat the numbers, just move more and sit less. Continue medical terminologist follow-up of stroke risk factor management with PCP Recrudescence Recrudescence of stroke symptoms refers to when a person experiences previously resolved symptoms of a stroke. These symptoms are usually mild and resolve within a few days. The condition is also sometimes referred to as ischemic stroke recrudescence. In simple terms, ischemic stroke recrudescence,or anamnestic syndrome, occurs when someone redevelops symptoms they experienced after having a stroke they had previously recovered from. This may result in the reappearance of neurological or physical symptoms associated with stroke. In most cases, people tend to experience a mild, rather than severe, worsening or return of symptoms. Recognized triggers of ischemic stroke recrudescence include: - infections - stress - conditions that cause metabolic dysregulation, such as diabetes - insomnia or lack of proper sleep - hypertension (high blood pressure) - low sodium levels (hyponatremia) - use of sedating medications, such as benzodiazepines, and anesthetic drugs, such as midazolam hydrochloride and fentanyl citrate -Stroke Clinic -Stroke nurse care team assistant Sari with any questions or concerns at [phone], or send a Amerpages message -Call 911 with any new stroke symptoms MAINTENANCE TECHNICIAN documented in this encounter Progress Notes * Amy Ingram PA-C - 01/30/2025 10:00 AM CST Images from the original note were not included. [facility] [phone] History of Present Illness Chief Complaint: Patient presents with: RECHECK: Trouble with fatigue but she can't sleep, weight gain, severe constipation, recent change from UC to Chron's, SOB Tash Bran James is a 63 year old female presenting for follow-up for hospitalization for stroke. She was hospitalized at [facility] on 05/07/2024. 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 She presented to the hospital with L sided weakness and R gaze preference. CTA withR M1 occlusion. S/p TNK, mechanical thrombectomy attempted, however there was spontaneous recanalization of right MCA. She was found to have LV thrombus with decreased EF and apical severe hypokinesis - cardiology consulted, cardiac MRI obtained and showed ischemic cardiomyopathy. She was initiallyplaced on heparin and transition to Eliquis at discharge. Cardiology recommended lifelong anticoagulation. 07/07/2024 clinic visit: seen by ophthalmology for evaluation of blurred vision - no clear cause found with no visual field impairment, no dysconjugate eye movements, no primary ocular issue identified. She's had issues with constipation, follows with GI especially given history of UC. Back to doingall of her previous activities of daily living though moves more slowly. She reports a longstandinghistory of insomnia, does feel that this is partially due to paresthesia of her right lateral foot that she has had following previous back issues. Trial of HS gabapentin started with plan to refer for sleep medicine if needed. Has been driving, limiting to routes she knows. 10/10/2024: Has completed all therapy - Still slower to complete tasks when more fatigued but betterover time. Balance might be off at times but no falls. The vision issues she was experiencing last visit have since improved. Gabapentin started last visit for insomnia and foot paresthesia - increased to 300 mg at bedtime and she finds this effective for treating the paresthesia and sleeps much better. Her biggest concern today is weight gain/increased appetite. We did discuss that gabapentin can have side effect of weight gain - will try decreasing gabapentin dose to 200 mg to see if this hasany effect on the appetite. She does acknowledge feeling somewhat depressed and we discussed that this could contribute to her appetite/weight as well. She denies any thoughts of self harm or suicidal ideation. I encouraged her to follow up with her PCP regarding mood and to eval for any other systemic issues contributing to weight gain/increased appetite such as thyroid dysfunction, etc. Still having issues with constipation - taking stool softeners and miralax. Has not been back to see GI recently. Tolerating Eliquis 5 mg BID for history of LV thrombus and ischemic cardiomyopathy. 01/30/2025: saw PCP and trials of trazodone and Ambien without benefit so no longer taking. Continues to report insomnia, excessive fatigue, today also mentions shortness of breath with activity. Has sleep appointment in February. She does acknowledge feeling depressed and having lack of interest in a ctivities, we again discussed that this could contribute to her appetite/weight as well and she wasagain encouraged to follow up with PCP to consider treatment for depression. She denies any thoughts of self harm or suicidal ideation. I also encouraged her to continue to work with PCP for evaluating systemic issues contributing to weight gain/increased appetite. Does note that stopping gabapentin helped some with the appetite/weight issues. Daughter asking about GLP-1 medications and whether that would be beneficial for stroke prevention. Aside from the potential benefit for diabetes management and weight loss I am not aware of any specific study regarding stroke risk being directly lowered by these medications but will reach out to the team for specifics in this regard and update my note as indicated. Has followed up with GI, her diagnosis has been changed from UC to Chron's. Continues to have issues with constipation. States BP typically 120s/80s at home. Modified Giulia Scale Score: 1-No significant disability despite symptoms; able to carry out all usual duties and activities Stroke Evaluation Summarized: New results resulted and reviewed by me today are in BOLD below. I personally reviewed the following neuroimaging studies today and the comments above reflect my own personal interpretation of the images: MRI/Head CT CT Head post 24 hour TNK: Evolving subacute right corpus striatal infarct with similar petechial hemorrhage. MRI brain: Acute right basal ganglia infarct with small volume hemorrhagic transformation. Tiny acute infarcts within the right insula, right parietal lobe, and right cerebellum. Infarct in the left temporal occipital junction. Initial CT Head: No evidence of hemorrhage Intracranial Vasculature CTA Head: Right M1 thromboembolic occlusion with distal reconstitution of flow Cervical Vasculature CTA Neck: No significant stenosis or dissection.Mild to moderate stenosis involving the proximal left subclavian artery. Echocardiogram EF 45%, distal anteroseptal, apical and anterolateral severe hypokinesis. LV thrombus. EKG/Telemetry Sinus tachycardia Possible Lateral infarct , age undetermined Possible Inferior infarct (cited on or before 26-Sep-2004) Abnormal ECG Other Testing CT CAP: no evidence of malignany Labs Lab Results Component Value Date LDL 134 (H) 05/07/2024 A1C 5.2 05/07/2024 CTROPT 9 05/07/2024 INR 1.11 05/08/2024 INR 1.02 05/07/2024 Home Medications Current Outpatient Medications Medication Sig Dispense Refill albuterol (VENTOLIN HFA) 108 (90 Base) MCG/ACT inhaler Inhale 1-2 puffs into the lungs every 4 hours as needed for wheezing. Ascorbic Acid (ANGELA-C PO) daily. atorvastatin (LIPITOR) 40 MG tablet Take 1 tablet (40 mg) by mouth every evening. 30 tablet 0 Calcium Citrate-Vitamin D (CALCIUM + D PO) Take 1 drop by mouth daily. ELDERBERRY PO Take 1 tablet daily ELIQUIS DVT/PE STARTER PACK 5 MG TBPK losartan (COZAAR) 25 MG tablet Take 1 tablet (25 mg) by mouth daily. 90 tablet 3 Misc Natural Products (TURMERIC CURCUMIN) CAPS Take 1 capsule by mouth daily. Multiple Vitamins-Minerals (MULTIVITAMIN GUMMIES ADULT PO) Take 1 Piece by mouth daily. Nutritional Supplements (GRAPESEED EXTRACT) 500-50 MG CAPS Take 1 capsule by mouth daily as needed. Sharps Container (HXXFIR-D-FBYQI LOCKING BRACKET) MISC 20-30 mm/Hg calf high compression stockings - Venous insufficiency SKYRIZI 360 MG/2.4ML on-body injector tretinoin (RETIN-A) 0.05 % external cream Apply topically at bedtime. No current facility-administered medications for this visit. Physical Examination Physical Exam Estimated body mass index is 30 kg/m?? as calculated from the following: Height as of 06/30/24: 1.575 m (5' 2). Weight as of 10/11/24: 74.4 kg (164 lb). BP 128/83 (BP Location: Right arm, Patient Position: Sitting, Cuff Size: Adult Large) Pulse 77 LMP (LMP Unknown) SpO2 99% General Exam General: Sitting up in chair in no acute distress Neurologic: Mental Status: alert, oriented x 3, follows commands, speech clear and fluent, flat affect, depressed mood Cranial Nerves: visual harper intact, EOMI with normal smooth pursuit, facial sensation intact and symmetric, hearing not formally tested but intact to conversation, no dysarthria Motor: normal muscle tone and bulk, no abnormal movements, able to move all limbs spontaneously, strength 5/5 throughout upper and lower extremities, no pronator drift Sensory: light touch sensation intact and symmetric throughout upper and lower extremities Coordination: normal aulpxq-rz-pdax and rnxy-sw-zxcl bilaterally without dysmetria, rapid alternating movements symmetric Station/Gait: walking independently without assistive device Screenings and Questionnaires: Tobacco: Tobacco Use Smoking status: Former Types: Cigarettes Smokeless tobacco: Never Sleep Apnea: Depression: 06/14/2024 12:03 PM PHQ-2 (??1998 [employer]) Q1: Little interest or pleasure in doing things 1 Q2: Feeling down, depressed or hopeless 1 PHQ-2 Score 2 Stroke Recovery and Risk Factors: 07/07/2024 8:49 AM Stroke Questionnaire Residual effects: Any residual effects from stroke? Yes, I do Residual effects: Most bothersome symptom balance,fatigue,extreme constpation,eyesight,feeling slow Level of independence: Walking Independent Level of independence: Eating Independent Incontinence: Bowel? No Incontinence: Bladder? Yes Current therapy: Physical Therapy Yes Current therapy: How often PT once per week Current therapy: Occupation Therapy Yes Current therapy: How often OT once per week Current therapy: Speech Therapy Yes Current therapy: How often WHARF WORKER once per week Current services: Home Health No, not needed Medication: How do you take your meds Myself, from individual bottles Medication: Do you ever miss or forget meds Rarely Risk Factor: Checking blood pressure at home No, I have a blood pressure cuff but do not use it Risk Factor: Why not checking BP at home Other Risk Factor: Other reason not checking BP havent been told too Risk Factor: Checking blood sugar at home No Risk Factor: Second-hand smoke at home No Risk Factor: How much caffeine per day not much 0to 10mg Who completed this questionnaire? The patient independently Patient-reported Assessment and Plan 1. Acute ischemic stroke of right MCA territory secondary to R M1 occlusion - cardioembolic etiology in the setting of ischemic cardiomyopathy and LV thrombus s/p TNK with spontaneous recanalization of R MCA -Cardiology recommended lifelong AC, on Eliquis 5 mg BID for secondary stroke prevention -Statin therapy: atorvastatin 40 mg, current LDL 82 -terminal makeup operator outpatient blood pressure goal <130/80, tighter control associated with overall decreased cardiovascular risk, recommend home blood pressure monitoring, keep log and bring to f/u with PCP -A1c goal <7% -Smoking screen: remote history -Mediterranean diet can be beneficial for overall decreased cardiovascular risk 2. Ischemic cardiomyopathy with LV thrombus -Follow up with cardiology as per their recommendations -They have recommended lifelong AC -Repeat Echo ordered today given severe persistent fatigue and shortness of breath 3. Constipation - Continued follow up with GI for further evaluation and management. 4. Increased appetite/weight gain - some improvement after stopping gabapentin? Further eval/management per PCP. Noted to have low estradiol, referred to buffer operator. No estrogen supplementation recommended given stroke history. 5. Insomnia, fatigue - sleep medicine appointment scheduled in 6. Depression - again encouraged to follow up with PCP and consider treatment for depression. - Return in about 6 months (around 07/31/2025) for stroke, with A. Nataly only. Stroke Education provided. She will call us with any questions. For any acute neurologic deficits she was advised to go directly to the hospital rather than call the clinic. Amy Ingram PA-C Neurology 01/30/2025 Billing: Please note: for coding purposes this visit should be billed only as established and not new, sincethis patient was seen by my same [facility]ty team [facility] during the hospitalization that this visit is a follow up for. I spent a total of 60 minutes on the day of the visit. Time spent by me today doing chart review, history and exam, documentation and further activities per the note MAINTENANCE TECHNICIAN documented in this encounter Nursing Notes * Flaquito Tejada - 01/30/2025 10:00 AM CST Symptoms or concerns today: Trouble with fatigue but she can't sleep, weight gain, severe constipation, recent change from UC to Chron's, SOB Med comments: stopped gabapentin - stopped a bunch of sleep meds Who the patient is here with today: - Dago and daughter - Flavia on the phone Flaquito Tejada MAINTENANCE TECHNICIAN documented in this encounter Plan of Treatment DateTypeDepartmentCare Team (Latest Contact Info)Egkhxpsamjs88/26/2026 12:30 PM CDTOffice Visit [facility] [address] [place] [phone] Amy Ingram PA-C [address] [facility] [address] [place], [place] [address] NameTypePriorityAssociated DiagnosesOrder ScheduleEchocardiogram Complete EchocardiographyRoutine Cerebrovascular accident (CVA) involving large vessel (H) Cardiomyopathy, unspecified type (H) Expected: 01/30/2025 (Approximate), Expires: 04/30/2026documented as of this encounter Visit Diagnoses Diagnosis Cerebrovascular accident (CVA) involving large vessel (H)- Primary Cardiomyopathy, unspecified type (H) documented in this encounter Care Teams Team MemberRelationshipSpecialtyStart DateEnd Date Ely Montgomery DO PCP - GeneralFamily Medicine06/02/24 Gracie Reeves, OD [address] [place], [place] [id number] Optometry06/02/24 Amy Ingram PA-C [address] [facility] [address] [place] [address] Assigned Neuroscience Provider07/15/24 Chepe Cerna PA-C [address] [place] [address] Assigned Heart and Vascular Provider07/15/24 Gracie Reeves, OD [address] [place], [place] [address] Assigned Surgical Provider07/15/24documented as of this encounter
[2025-02-10 13:42] VITALS: BP 153/82; PULSE 82; RESP 18; TEMP 36.3; O2SAT 95; BMI 30.2
[2025-02-10 13:48] LABS: Appearance Urine Cloudy (Clear)
--- NOTE | 2025-02-10 13:53 | ED.FEMALEGU ---
HPI - Female Genitourinary General Chief complaint: Urogenital Problems, Female Stated complaint: Blood in urine on blood thinner Time Seen by Provider: 02/10/25 13:49 History of Present Illness HPI Narrative: Patient is a 64-year-old woman who comes in today with urinary frequency burning and hematuria. Symptoms have been present for last several days. She has history of Crohn's disease and is on Skrise. Patient has no flank pain no other abdominal pain no nausea no vomiting no fevers no chills. She has no symptoms or history of renal lithiasis. Related Data Home Medications ?Medication ?Instructions ?Recorded ?Confirmed Eliquis 02/10/25 Skyrizi 02/10/25 atorvastatin 02/10/25 losartan 02/10/25 Previous Rx's ?Medication ?Instructions ?Recorded ciprofloxacin HCl 250 mg tablet 250 mg PO BID #10 tabs 02/10/25 (Cipro) Allergies Allergy/AdvReac Type Severity Reaction Status Date / Time Iodinated Contrast Media Allergy Severe Verified 02/10/25 13:47 bupropion (From Wellbutrin) Allergy Unknown Verified 02/10/25 13:47 Review of Systems Status of ROS: Reports: 10 or more systems reviewed and unremarkable except as noted in History and below Exam Narrative: Exam Narrative: EXAM GENERAL: Patient appears comfortable and well. EYES: No scleral icterus. LYMPH: No supraclavicular or cervical lymphadenopathy. SKIN: Visible skin seen during exam normal or with benign process only. EXT: No dependent lower extremity pedal edema. HEART: Regular rate and rhythm with no murmurs, rubs, or gallops. LUNGS: Clear to auscultation bilaterally with no crackles or wheezes. ABD: Soft, non tender, non distended. PSYCH: Good eye contact, speech is not pressured. Const: Vital Signs, click to edit/add: Vital Signs - 24 hr 02/10/25 13:42 Temperature 97.4 F L Pulse Rate [Pulse Oximeter] 82 Respiratory Rate 18 Blood Pressure [Ri ght Upper Arm] 153/82 H Pulse Oximetry 95 Oxygen Delivery Me thod Room Air Course Course ED Course: Patient seen and examined. UA pending. Vital Signs Vital signs: Initial Vital Signs Temperature 97.4 F L 02/10/25 13:42 Temperature Source Temporal Artery Scan 02/10/25 13:42 Pulse Rate 82 02/10/25 13:42 Respiratory Rate 18 02/10/25 13:42 Blood Pressure 153/82 H 02/10/25 13:42 Blood Pressure Mean 105 02/10/25 13:42 Blood Pressure Position Sitting 02/10/25 13:42 Pulse Oximetry 95 02/10/25 13:42 Oxygen Delivery Method Room Air 02/10/25 13:42 Vital Signs Temperature 97.4 F L 02/10/25 13:42 Pulse Rate 82 02/10/25 13:42 Respiratory Rate 18 02/10/25 13:42 Blood Pressure 153/82 H 02/10/25 13:42 Pulse Oximetry 95 02/10/25 13:42 Oxygen Delivery Method Room Air 02/10/25 13:42 Temperature 97.4 F L 02/10/25 13:42 Pulse Rate 82 02/10/25 13:42 Respiratory Rate 18 02/10/25 13:42 Blood Pressure 153/82 H 02/10/25 13:42 Pulse Oximetry 95 02/10/25 13:42 Oxygen Delivery Method Room Air 02/10/25 13:42 MDM - Female Genitourinary MDM Narrative Medical decision making narrative: Patient is a 64-year-old woman on anticoagulation for history of CVA who presents with hematuria. Hematuria is confirmed with her UA. She has no history of any urology pathology. She has a history of Crohn's disease and is on Skyresy. No other signs of infection although with her hematuria I do think is reasonable placed on a short course of Cipro. I do not think she needs CT scan today. I did explain that she will need follow-up next week with a UA and potentially urology referral if hematuria does not improve. Lab Data Labs: Lab Results 02/10/25 Range/Units 13:37 Urine Color Brown A (Yellow) Urine Appearance Cloudy A (Clear) Urine pH 5.5 (5.0-8.5) Ur Specific Superior 1.010 (1.000-1.030) Urine Protein 2+ A (Negative) Urine Glucose (UA) Negative (Negative) Urine Ketones Negative (Negative) Urine Blood 3+ A (Negative) Urine Nitrite Negative (Negative) Urine Bilirubin Negative (Negative) Urine Urobilinogen 0.2 (0.2-1.0) Ur Leukocyte Esterase Negative (Negative) Urine RBC 50-100 A (0-2) Urine WBC 0-2 (0-5) Ur Squamous Epith Cells None (None-Few) Amorphous Sediment Moderate A (None) Urine Bacteria None (None) Urine Mucus Few A (None) Discharge Plan Discharge Clinical Impression: Hematuria Patient Disposition: Home, Self-Care Condition: Stable Instructions: Hematuria (ED) Additional Instructions: Cipro as directed Plenty of fluids Advanced diet activity as tolerated Follow-up with your doctor next week for a UA. Activity Level: No Restrictions Discharge Diet: Regular Prescriptions: New ciprofloxacin HCl [Cipro] 250 mg tablet 250 mg PO BID Qty: 10 0RF No Action losartan atorvastatin Skyrizi Eliquis Follow Up/Referrals: Ely Montgomery DO [Primary Care Provider, Family Practice] Stand Alone Forms: [facility] Info Instructions
--- OUTSIDE RECORDS SUMMARY | 2025-02-10 14:11 | XMS_ITS | Encounter Summary ---
Author Organization [place] Address [address] [place] [id number] Care Team Providers Care Deputy Fire Chief Name Role Phone NancyjuslyndseyMiladsoni Whipple DO Primary Care Provider [phone] LalaGracie OD Unavailable [phone] More, mAy Weeks PA-C Unavailable [phone] Chepe Cerna PA-C Unavailable [phone] ReevesGracie porras OD Unavailable Encounter Details DateTypeDepartmentCare Team (Latest Contact Info)Lbdssrjdttn38/18/2025[facility] [place] [facility]ice [facility] [address], [address] [place] [id number] Sari Greene RN Social History Tobacco UseTypesPacks/DayYears UsedDateSmoking Tobacco: FormerCigarettes [...] in an abandoned building, in an overnight penitentiary, or couch-surfing.)No05/08/2024re you worried about losing your [...] InformationValueDate RecordedSex Assigned at BirthNot on fileLegal QihJzetdt54/04/2012 3:26 AM CSTGender IdentityNot on file Sexual OrientationNot on filedocumented as of this encounter Miscellaneous Notes * Telephone Encounter - Amy Ingram PA-C - 01/13/2025 8:28 AM CST Would recommend she discuss further with her PCP for management until she can be seen in sleep clinic. Sleep medications are not something that I generally manage in stroke clinic. LAIN * Telephone Encounter - Ally Portillo APRN CNP - 01/12/2025 8:31 AM CHAPLAIN Not having seen the patient I am not able to offer much in terms of sleep recommendations. I do think she could speak with the provider who prescribed the trazodone and see if a dosage increase many be possible--there is often room to titrate upwards. Otherwise she could consider non-pharmacological interventions such as meditation, bedtime yoga/stretching or cognitive behavioral therapy for insomnia. LAIN documented in this encounter Plan of Treatment DateTypeDepartmentCare Team (Latest Contact Info)Qczitwgnrmm06/26/2026 12:30 PM CDTOffice Visit [facility] [address] [facility], [facility] [address] [place] [phone] Amy Ingram PA-C [address] [facility] [address] [place] [address] documented as of this encounter Visit Diagnoses Not on filedocumented in this encounter Care Teams Team MemberRelationshipSpecialtyStart DateEnd Date Ely Montgomery DO PCP - GeneralFamily Medicine06/02/24 Gracie Reeves, OD [address] [place], [place] [id number] Optometry06/02/24 Amy Ingram PA-C [address] [facility] [address] [place], [place] [id number] Assigned Neuroscience Provider07/15/24 Chepe Cerna PA-C [address] [facility] [place] [address] Assigned Heart and Vascular Provider07/15/24 Gracie Reeves, OD [address] [place] [address] Assigned Surgical Provider07/15/24documented as of this encounter
--- OUTSIDE RECORDS SUMMARY | 2025-02-10 14:11 | XMS_ITS | Clinical Summary ---
Author Organization [facility] Address [address] [place] [address] Care Team Providers Care Neon Electrician Name Role Phone Nancyjuslyndsey Ely Whipple DO Primary Care Provider [phone] Gracie Reeves OD Unavailable More, Amy C PA-C Unavailable [phone] Cerna Jeannieoren E PA-C Unavailable [phone] Gracie Reeves OD Unavailable Allergies Active AllergyReactionsCriticalityNoted YcqtZebsruauJgotkdqlg47/22/2010Iodinated Contrast Media11/14/2009 CT Dye Aqepjucz10/22/2010 Medications MedicationSigDispense QuantityRefillsLast FilledStart DateEnd DateStatus albuterol (VENTOLIN HFA) 108 (90 Base) MCG/ACT inhaler Inhale 1-2 puffs into the lungs every 4 hours as needed for wheezing.12/10/2017 Active Sharps Container (GYYKUT-S-AGJAS LOCKING BRACKET) MISC 20-30 mm/Hg calf high compression stockings - Venous sqdtpqfsnotoy72/09/2020 Active Ascorbic Acid (ANGELA-C PO) daily.Active Calcium Citrate-Vitamin D (CALCIUM + D PO) Take 1 drop by mouth daily.Active ELDERBERRY PO Take 1 tablet dailyActive Misc Natural Products (TURMERIC CURCUMIN) CAPS Take 1 capsule by mouth daily. Active Nutritional Supplements (GRAPESEED EXTRACT) 500-50 MG CAPS Take 1 capsule by mouth daily as needed. Active tretinoin (RETIN-A) 0.05 % external cream Apply topically at bedtime.Active Multiple Vitamins-Minerals (MULTIVITAMIN GUMMIES ADULT PO) Take 1 Piece by mouth daily.Active atorvastatin (LIPITOR) 40 MG tablet Indications:Cerebrovascular accident (CVA) involving large vessel (H)Take 1 tablet (40 mg) by mouth every evening. 30 tablet 5Active ELIQUIS DVT/PE STARTER PACK 5 MG TBPK 5Active SKYRIZI 360 MG/2.4ML on-body injector 5Active losartan (COZAAR) 25 MG tablet Indications:Chronic heart failure with mildly reduced ejection fraction (HFmrEF, 41-49%) (H)Take 1 tablet (25 mg) by mouth daily. 90 tablet 5Active mesalamine (CANASA) 1000 MG suppository INSERT 1 SUPPOSITORY BY RECTAL ROUTE AT BEDTIME NEEDED. Discontinued(Stopped by Patient (No AVS)) gabapentin (NEURONTIN) 100 MG capsule Indications:ParesthesiaTake 1-3 capsules by mouth at bedtime 270 capsule Discontinued(Stopped by Patient (No AVS)) Active Problems ProblemNoted DateDiagnosed DdqwGultlmawgqf44/19/2025erebrovascular accident (CVA) involving large mirpig5905/07/2024Thyroid fznigw8510/18/2019 Overview (10/18/2019): Right side thyroid nodule measuring 2.8 cm ( US done at [facility] 08/2019) Encounters DateTypeDepartmentCare RxfeSzqospmdeux92/15/2025[facility] [place] [facility] - [address], [address] [place] [address] Sari Greene RN 01/30/2025 10:00 AM CSTOffice Visit [facility] - [address], [address] [place] [address] Amy Ingram, JESSICA Cerebrovascular accident (CVA) involving large vessel (H) (Primary Dx); Cardiomyopathy, unspecified type (H)01/30/20254779Tsornb35/18/2025MyC Medical Advice [facility] [address], [address] [place] [address] Sari Greene RN from Last 3 Months Immunizations ImmunizationAdministration DatesNext DueDTaP, Bcunmjdypqg88/10/2016Influenza (IIV3) PF01/21/2008,12/31/2004Influenza (prior to 2023)01/30/2009Pneumococcal 23 ntsejv9010/24/2014,12/15/2008Td (Adult), Dmydkckl79/08/2005 Family History Medical HistoryRelationCommentsBladder CancerFatherDiabetesFatherRelationStatus CommentsFather Social History Tobacco UseTypesPacks/DayYears UsedDateSmoking Tobacco: FormerCigarettes Smokeless Tobacco: Never Tobacco Cessation:Counseling Given: Not Answered Alcohol UseStandard Drinks/WeekCommentsNot Currently0 (1 standard drink = 0.6 oz pure alcohol)occPHQ-2AnswerDate RecordedPHQ-2 Icyol840dolescent EducationAnswerDate RecordedGetting School Help NeededNot on file11/16/2022Food InsecurityAnswerDate RecordedWithin the past 12 months, did you worry that your food would run out before you got money to buy more?No05/08/2024Within the past 12 months, did the food you bought just not last and you didn???t have money to getmore?No05/08/2024Housing StabilityAnswerDate RecordedDo you have housing? (Housing is defined as stable permanent housing and does not include staying ou tside in a car, in a tent, in an abandoned building, in an overnight nursing home, or couch-surfing.)No05/08/2024re you worried about losing your housing?No 05/08/2024Financial Resource StrainAnswerDate RecordedWithin the past 12 months, have you or your family members you live with been unable to get utilities (heat, electricity) when it was really needed?No05/08/2024Transportation Needs AnswerDate RecordedWithin the past 12 months, has lack of transportation kept you from medical appointments, getting your medicines, non-medical meetings or appointments, work, or from getting things that you need?No05/08/2024 Interpersonal SafetyAnswerDate RecordedDo you feel physically and emotionally safe where you currently live?Yes06/06/2024Within the past 12 months, have you been hit, slapped, kicked or otherwise physically hurt by someone?No06/06/2024 Within the past 12 months, have you been humiliated or emotionally abused in other ways by your partner or ex-partner?No06/06/2024CommentsNoSex and Gender InformationValueDate RecordedSex Assigned at BirthNot on fileLegal Sex Fbqjfi3412/28/2011 3:26 AM CSTGender IdentityNot on fileSexual OrientationNot on file Last Filed Vital Signs Vital SignReadingTime TakenCommentsBlood Jxjnruzt583/8301/30/2025 10:01 AM PAYLOADER OPERATOR Zohrv631201/30/2025 10:01 AM JLIEtdasbiuwoh84.8 ??C (98.2 ??F)05/11/2024 3:50 PM CDTRespiratory Dhix234605/11/2024 3:50 PM CDTOxygen Zqokkyzscj52%01/30/2025 10:01 AM CSTInhaled Oxygen Concentration--Hdqwor40.4 kg (164 lb)10/11/2024 8:52 AM CDT Uursmc233.5 cm (5' 2)06/30/2024 12:29 PM CDTBody Mass Fwblh0086/08/2025 12:29 PM CDT Plan of Treatment DateTypeDepartmentCare Team (Latest Contact Info)Ydvvnlapsoo43/26/2026 12:30 PM CDTOffice Visit [facility] [address], [address] [place] [address] Amy Ingram PA-C [address] [facility] [address] [place] [id number] Health MaintenanceDue DateLast DoneCommentsADVANCE CARE UUFFHALK05/19/1960ANNUAL REVIEW OF HM HNUUQI79 1959CT VTAPPTOQWFAZ14/19/8097UYI56 1959HF ACTION PLAN1959TSH W/FREE T4 RVVFME87 1959DNA (Cologuard)1959COVID-19 VACCINE (#1)05/11/1960HIV VQDWVYLDK18/19/1975ZOSTER VACCINE (1 of 2)11/11/1978 ALT09/24/RSV VACCINE (1 - Risk 50-74 years 1-dose series) 11/11/2009PNEUMOCOCCAL VACCINE 50+ YEARS (3 of 3 - PCV), 12/15/2008, 02/24/2008INFLUENZA VACCINE (#1)/09/2008, 01/21/2008, 12/31/2004FALL RISK YIPFESFNOK78/19/9988TKL47/, 05/08/2024, 05/07/2024, Additional history existsMEDICARE ANNUAL WELLNESS VISIT03/31/2025 03/31/2024, 09/16/2022, 09/24/2021, Additional history cnxtlrWMFUZ73/15/2026 05/07/2024, 09/24/2004CBC, 05/08/2024, 05/07/2024LUNG CANCER EEZQDTAPR70/, 03/07/2022, 09/01/2019, Additional history exists DTAP/TDAP/TD VACCINE (2 - Tdap)/11/2015, 08/03/2015, 12/31/2004MAMMO JIERFCYBQ05, 12/09/2023, 10/20/2022, Additional history exists DIABETES FSLRUIMSR85/, 05/11/2024, 05/10/2024, Additional history existsFLEX SIG/07/2024, 12/29/2024, 4COLONOSCOPY , 12/29/2024, 12/29/2024, Additional history exists COLORECTAL CANCER RZRLFYHFK21/06/3151GZSK77/25/81251505/17/2020HEPATITIS C IZNZXAVYLOhvophbfp30/31/6530QOFPfraqsktnocz58/24/2021HQ-2 (once per calendar year)Qcanlicsd32/22/2025HPV VACCINE (No Doses Required)CompletedMENINGITIS VACCINEAged OutNo longer eligible based on patient's age to complete this topic Procedures Procedure NamePriorityDate/TimeAssociated DiagnosisCommentsBASIC METABOLIC PANEL Scaynxi1507/14/2024 1:40 PM CDT Chronic heart failure with mildly reduced ejection fraction (HFmrEF, 41-49%) (H) CBC WITH POQRZXAVAIEWS32/18/2025 2:[address] CHEST/ABDOMEN/PELVIS W TQMEUEPFGpnnqaq06/18/2025 12:12 AM CDT LIPID REFLEX TO DIRECT LDL PANELSTAT Add-on05/07/2024 9:03 PM CDT HC MAMMO DIAGNOSTIC BILATERAL, INCL CAD WHEN MYBOCqnkutc76/23/2009 1:29 PM CDT PJCEhbrmke52/02/2005 1:32 PM CDT from Last 3 Months or Most Recently Relevant to Health Maintenance Results * Basic metabolic panel (07/14/2024 1:40 PM CDT)ComponentValueRef RangeTest MethodAnalysis TimePerformed AtPathologist YdoosiltxGcxobh183094 - 145 mmol/L 07/14/2024 2:24 PM CDTRH LABORATORYPotassium4.33.4 - 5.3 mmol/L07/14/2024 2:24 PM CDTRH IJLGIDZWAELieyednf95423 - 107 mmol/L07/14/2024 2:24 PM CDTRH LABORATORYCarbon Dioxide (CO2)2622 - 29 mmol/L07/14/2024 2:24 PM CDTRH LABORATORYAnion Cxl231 - 15 mmol/L07/14/2024 2:24 PM CDTRH LABORATORYUrea Nitrogen8.38.0 - 23.0 mg/dL07/14/2024 2:24 PM CDTRH LABORATORYCreatinine0.75 0.51 - 0.95 mg/dL07/14/2024 2:24 PM CDTRH LABORATORYGFR Zixkfbou50>60 mL/min/1.39l95807/14/2024 2:24 PM CDTRH LABORATORYComment:eGFR calculated using 2020 CKD-EPI equation.Calcium9.18.8 - 10.4 mg/dL07/14/2024 2:24 PM CDTRH XTKBPZIVPEOfevwpv7580 - 99 mg/dL07/14/2024 2:24 PM CDTRH LABORATORYSpecimen (Source)Anatomical Location / LateralityCollection Method / VolumeCollection TimeReceived TimeBloodSTRUCTURE OF LEFT UPPER LIMB / UnknownVenipuncture / Cjgkidu2907/14/2024 1:40 PM CDT07/14/2024 1:40 PM CDT Narrative Authorizing ProviderResult TypeResult StatusAnah E Cerna PA-CLAB - BLOOD ORDERABLESFinal ResultPerforming OrganizationAddressCity/State/ZIP CodePhone Number [facility] [address] (1st floor, no room number) [place] [address], [facility] * (ABNORMAL) CBC with platelets (05/10/2024 2:21 PM CDT)ComponentValueRef Range Test MethodAnalysis TimePerformed AtPathologist SignatureWBC Count11.7(H)4.0 - 11.0 10e3/uL05/10/2024 2:58 PM CDTS LABORATORYRBC Count4.383.80 - 5.20 10e6/uL05/10/2024 2:58 PM CDTS DKCSDELHBJLyxhmibust37.211.7 - 15.7 g/dL 05/10/2024 2:58 PM TS XYYEVIDCFHOdvfpjatcc80.735.0 - 47.0 %05/10/2024 2:58 PM [facility] EWAVZNWNNSVUW6716 - 100 fL05/10/2024 2:58 PM [facility] YKBLEBSCGFQFW91.1 26.5 - 33.0 pg05/10/2024 2:58 PM [facility] KZSOAZSETUBLIJ71.231.5 - 36.5 g/dL 05/10/2024 2:58 PM [facility] KZBZQIZCZUAUE58.510.0 - 15.0 %05/10/2024 2:58 PM CDT LABORATORYPlatelet Dkqtm516982 - 450 10e3/uL05/10/2024 2:58 PM CDLIN[facility] LABORATORYSpecimen (Source)Anatomical Location / LateralityCollection Method / VolumeCollection TimeReceived TimeBloodSTRUCTURE OF LEFT UPPER LIMB / Unknown Venipuncture / Zdllgjc8705/10/2024 2:21 PM CDT05/10/2024 2:55 PM CDT Narrative Authorizing ProviderResult TypeResult StatusTawanna Hillman CNPLAB - BLOOD ORDERABLESFinal ResultPerforming OrganizationAddressCity/State/ZIP CodePhone Number LABORATORY [facility] [address] floor, [address] [place] [address], [facility] [phone] * CT Chest/Abdomen/Pelvis w Contrast (05/10/2024 12:12 AM CDT)Anatomical Region LateralityModalityAbdomen/Pelvis, Chest, SUBRAD CT BODY, UMP CT CHEST, UMP CT ABDOMEN PELVIS, RAD CTComputed TomographySpecimen (Source)Anatomical Location / LateralityCollection Method / VolumeCollection TimeReceived Time05/10/2024 12:12 AM CDT Impressions 05/10/2024 12:40 AM CDT IMPRESSION: 1. ??No acute process within the chest, abdomen, or pelvis. Narrative 05/10/2024 12:40 AM CDT EXAM: CT CHEST/ABDOMEN/PELVIS W CONTRAST LOCATION: [facility] DATE: 05/10/2024 INDICATION: Acute ESUS stroke ??look for other embolic sourses of stroke. Pt requires pre treatmentb f CT COMPARISON: CT chest/abdomen/pelvis with contrast 06/29/2023. TECHNIQUE: CT scan of the chest, abdomen, and pelvis was performed following injection of IV contrast. Multiplanar reformats were obtained. Dose reduction techniques were used. CONTRAST: Intravenous contrast administered. FINDINGS: LUNGS AND PLEURA: Scattered small bilateral pulmonary nodules all measuring 4 mm or less and scattered reticulonodular changes remain stable. Nodular areas of scarring right lower lobe also stable. No acute infiltrates or effusions. MEDIASTINUM/AXILLAE: Calcified mediastinal and bilateral hilar nodes. No adenopathy. Heart size within normal limits. Aorta and esophagus unremarkable. CORONARY ARTERY CALCIFICATION: Mild. HEPATOBILIARY: Hepatic steatosis. Unremarkable gallbladder. PANCREAS: Normal. SPLEEN: Calcified splenic granuloma. ADRENAL GLANDS: Normal. KIDNEYS/BLADDER: Small nonobstructing renal calyceal calculi. No hydronephrosis. Unremarkable urinary bladder. BOWEL: Submucosal deposition of the distal sigmoid colon and rectum, suggestive of chronic inflammation. Colonic diverticulosis. No bowel obstruction. LYMPH NODES: Normal. VASCULATURE: Atherosclerotic calcifications of the aortoiliac vessels without evidence of aneurysmal dilatation. PELVIC ORGANS: Unremarkable. MUSCULOSKELETAL: Tiny fat-containing umbilical hernia. Degenerative changes of the spine. No acute osseous abnormality. Procedure Note Praful Garcia MD - 05/10/2024 EXAM: CT CHEST/ABDOMEN/PELVIS W CONTRAST LOCATION: [facility] DATE: 05/10/2024 INDICATION: Acute ESUS stroke look for other embolic sourses of stroke.Pt requires pre treatment b f CT COMPARISON: CT chest/abdomen/pelvis with contrast 06/29/2023. TECHNIQUE: CT scan of the chest, abdomen, and pelvis was performedfollowing injection of IV contrast. Multiplanar reformats were obtained.Dose reduction techniques were used. CONTRAST: Intravenous contrast administered. FINDINGS: LUNGS AND PLEURA: Scattered small bilateral pulmonary nodules allmeasuring 4 mm or less and scattered reticulonodular changes remainstable. Nodular areas of scarring right lower lobe also stable. No acuteinfiltrates or effusions. MEDIASTINUM/AXILLAE: Calcified mediastinal and bilateral hilar nodes. No adenopathy. Heart size within normal limits. Aorta and esophagusunremarkable. CORONARY ARTERY CALCIFICATION: Mild. HEPATOBILIARY: Hepatic steatosis. Unremarkable gallbladder. PANCREAS: Normal. SPLEEN: Calcified splenic granuloma. ADRENAL GLANDS: Normal. KIDNEYS/BLADDER: Small nonobstructing renal calyceal calculi. Nohydronephrosis. Unremarkable urinary bladder. BOWEL: Submucosal deposition of the distal sigmoid colon and rectum,suggestive of chronic inflammation. Colonic diverticulosis. No bowelobstruction. LYMPH NODES: Normal. VASCULATURE: Atherosclerotic calcifications of the aortoiliac vesselswithout evidence of aneurysmal dilatation. PELVIC ORGANS: Unremarkable. MUSCULOSKELETAL: Tiny fat-containing umbilical hernia. Degenerativechanges of the spine. No acute osseous abnormality. IMPRESSION: 1. No acute process within the chest, abdomen, or pelvis. Authorizing ProviderResult TypeResult StatusEdith GEORGE CT ORDERABLES Final Result * (ABNORMAL) Lipid panel reflex to direct LDL (05/07/2024 9:03 PM CDT)Component ValueRef RangeTest MethodAnalysis TimePerformed AtPathologist Signature Svhbptufxbs662(H)<200 mg/dL05/08/2024 1:50 AM CDTUU UZPDFLMKWDEkyzumissemyi245 <150 mg/dL05/08/2024 1:50 AM CDTUU LABORATORYDirect Measure HDL53>=50 mg/dL 05/08/2024 1:50 AM CDTUU LABORATORYLDL Cholesterol Tdiqenwtlg307(H)<100 mg/dL 05/08/2024 1:50 AM CDTUU LABORATORYNon HDL Rwhbvxovkmb640(H)<130 mg/dL 05/08/2024 1:50 AM CDTUU LABORATORYSpecimen (Source)Anatomical Location / LateralityCollection Method / VolumeCollection TimeReceived TimeBloodBLOOD SPECIMEN / UnknownVenipuncture / Zvyxkqj3105/07/2024 9:03 PM CDT05/07/2024 9:07 PM CDT Narrative [facility] - 05/08/2024 1:50 AM CDT Cholesterol Desirable: < 200 mg/dL Borderline High: 200 - 239 mg/dL High: >= 240 mg/dL Triglycerides Normal: < 150 mg/dL Borderline High: 150 - 199 mg/dL High: 200-499 mg/dL Very High: >= 500 mg/dL Direct Measure HDL Female: >= 50 mg/dL Male: >= 40 mg/dL LDL Cholesterol Desirable: < 100 mg/dL Above Desirable: 100 - 129 mg/dL Borderline High: 130 - 159 mg/dL High: ??160 - 189 mg/dL Very High: >= 190 mg/dL Non HDL Cholesterol Desirable: < 130 mg/dL Above Desirable: 130 - 159 mg/dL Borderline High: 160 - 189 mg/dL High: 190 - 219 mg/dL Very High: >= 220 mg/dL Authorizing ProviderResult TypeResult StatusMarilee Talavera MDLAB - BLOOD ORDERABLESFinal ResultPerforming OrganizationAddressCity/State/ZIP CodePhone Number [facility] [address] [facility], [address] [place] [address] * DIAGNOSTIC MAMMOGRAPHY DIGITAL (BILAT) (06/15/2008 1:29 PM CDT)Anatomical RegionLateralityModalityOtherSpecimen (Source)Anatomical Location / Laterality Collection Method / VolumeCollection TimeReceived Time06/15/2008 1:29 PM CDT Impressions 06/15/2008 4:24 PM CDT DIAGNOSTIC MAMMOGRAM, BILATERAL, DIGITAL w/CAD ??- June 15, 2008 REASON FOR EXAM: The patient has an open wound/skin sore along the medial undersurface of the left breast. She is status post bilateral reduction mammoplasty. COMPARISON: None. DIAGNOSTIC MAMMOGRAPHY FINDINGS: A BB is placed along the anterior aspect of the skin lesion. There are no mammographic parenchymal nodules, tumor calcifications or other changes to suggest underlying breast pathology. The breast is essentially completely fatty-replaced in this area. These findings were discussed with the patient. She will continue clinical followup of this skin lesion which is indeterminant between potential staph infection versus insect bite or other causes for this skin lesion. There does not, however, appear to be a related underlying breast pathology process. IMPRESSION: BI-RADS 1, NEGATIVE. No underlying breast malignancy or other breast pathology appreciated. These findings and recommendations below were communicated with the patient at the time of imaging. RECOMMENDATION: Appropriate clinical followup and return to annual mammography screening studies. Narrative Authorizing ProviderResult TypeResult StatusDenika Barton CNMSPECIAL IMAGING STUDIESEdited * ALT (09/24/2004 1:32 PM CDT)ComponentValueRef RangeTest MethodAnalysis Time Performed AtPathologist GmdfujvvxDKI047 - 50 U/LMISYSSpecimen (Source) Anatomical Location / LateralityCollection Method / VolumeCollection Time Received Time09/24/2004 1:32 PM CDT09/24/2004 9:12 PM CDT Narrative Authorizing ProviderResult TypeResult StatusShaun Mercedes MDLAB - BLOOD ORDERABLESFinal ResultPerforming OrganizationAddressCity/State/ZIP CodePhone Number [facility] from Last 3 Months or Most Recently Relevant to Health Maintenance Insurance Advance Directives For more information, please contact: [phone] * Full Code (Latest Code Status on File) Date ActivatedDate InactivatedComments05/07/2024 11:09 PM05/11/2024 8:33 PMAll basic and advanced life-sustaining interventions are performed as appropriate QuestionAnswerCommentsCode status determined by:* Discussion with patient/ legal decision maker Care Teams Team MemberRelationshipSpecialtyStart DateEnd Date Ely Montgomery DO PCP - GeneralFamily Medicine06/02/24 Gracie Reeves, TEREZA [address] [place], [place] [address] Optometry06/02/24 Amy Ingram PA-C [address] [address] Assigned Neuroscience Provider07/15/24 Chepe Cerna PA-C [address] [place] [address] Assigned Heart and Vascular Provider07/15/24 Gracie Reeves, TEREZA [address] [place] [address] Assigned Surgical Provider07/15/24
--- OUTSIDE RECORDS SUMMARY | 2025-02-10 14:11 | XMS_ITS | Clinical Summary ---
Author Organization [facility] Address [address], [place] [address] Care Team Providers Care Sale Professional Digital Marketing Name Role Phone Wendy Moreno Primary Care Provider Rhonda ble Source Comments You are receiving this document as you are listed as the primary care provider,follow-up provider, or the patient has been referred to you for consultation.This is in compliance with the Medicare andMedicaid EHR Incentive Program,which states Providers who transition their patient to another setting of careor provider of care or refers their patient to another provider of care shouldprovide summary care record for each transition of care or referral. [facility] Allergies Active AllergyReactionsCriticalityNoted DateCommentsIodinated Contrast Media 02/06/2016 CT Dye Medications MedicationSigDispense QuantityRefillsLast FilledStart DateEnd DateStatus mesalamine (LIALDA) 1.2 G enteric coated tablet Take 1,200 mg by mouth daily with breakfast. Takes 2 pills twice a dayActive mesalamine (CANASA) 1000 MG suppository Insert 1,000 mg rectally at bedtime as needed for Other.Active drug not in computer Mefa EFA (Epa & DHA) Take 1 to 2 daily.Active ELDERBERRY OR Take 1 tablet dailyActive calcium Administer intravenously. 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); Obesity, unspecified class, unspecified obesity type, unspecified whether serious comorbidity present (HRC); Daytime sleepiness; Hypertension, essential (HRC); Cardiomyopathy, unspecified type (HRC); Cerebrovascular accident (CVA), unspecified mechanism (HRC)from Last 3 Months Social History Tobacco UseTypesPacks/DayYears UsedDateSmoking Tobacco: FormerComments UnknownSex and Gender InformationValueDate RecordedSex Assigned at BirthNot on fileLegal NkeDtrkvc02/10/2012 4:38 AM CDTGender IdentityNot on fileSexual OrientationNot on file Plan of Treatment Health MaintenanceDue DateLast DoneCommentsCervical Cancer Screening Due 1959Colon Cancer Screening Plan Due1959Hep C Screening (Preventive Services)1960Medicare Welcome Visit1960 5070Qdqihrdhouf18/19/2005RSV Vaccine (1 - Risk 50-74 years 1-dose series)11/11/2009Zoster/Shingles Vaccine (1 of 2)11/11/2009Pneumococcal Vaccine 50+ Yrs (2 of 2 - PCV), 12/15/2008, 02/24/2008Lung Cancer Djrfrxvfj72OVID-19 Vaccine (1 - 2024- season)2024Influenza Vaccine (#1)512/09/2008, 01/21/2008, 12/31/20041919Nisdyuilb43, 10/20/2022, 10/03/2021, Additional history existsDTaP/Tdap/Td Vaccine (3 - Tdap)6008/03/2015, 08/03/20150476FiaqDyncochni19/25/2021, 05/17/2020HepA VaccineAged OutNo longer eligible based on patient's age to complete this topicHepB VaccineAged OutNo longer eligible based on patient's age to complete this topicHib VaccineAged Out No longer eligible based on patient's age to complete this topicIPV (Polio) VaccineAged OutNo longer eligible based on patient's age to complete this topic MCV4 VaccineAged OutNo longer eligible based on patient's age to complete this topicMeningococcal B VaccineAged OutNo longer eligible based on patient's age to complete this topic Insurance Care Teams Team MemberRelationshipSpecialtyStart DateEnd Date Wendy Moreno PCP - General05/27/10
--- OUTSIDE RECORDS SUMMARY | 2025-02-10 14:11 | XMS_ITS | Encounter Summary ---
Author Organization [facility] Address [address] [place] [id number] Care Team Providers Care Storage Worker Name Role Phone NancyjuslyndseyMiladsoni Whipple DO Primary Care Provider LalaGracie OD Unavailable [phone] More, Amy Weeks PA-C Unavailable [phone] Chepe Cerna PA-C Unavailable ReevesGracie porras OD Unavailable Encounter Details DateTypeDepartmentCare Team (Latest Contact Info)Rgqvgpveusg34/15/2025[facility] Medical Advice [facility] [address], [address] [place] [id number] Sari Greene RN Social History Tobacco [...] or couch-surfing.)No05/08/2024re you worried about losing your housing?No05/08/2024Financial Resource StrainAnswerDate Recorded Within the past 12 [...] InformationValueDate RecordedSex Assigned at BirthNot on fileLegal PkqAjrain36/04/2012 3:26 AM CSTGender IdentityNot on file Sexual OrientationNot on filedocumented as of this encounter Plan of Treatment DateTypeDepartmentCare Team (Latest Contact Info)Rreghgmoqdj18/26/2026 12:30 PM CDTOffice Visit [facility] - [address], [address] [place] [phone] Amy Ingram PA-C [address] [facility] [address] [place] [id number] documented as of this encounter Visit Diagnoses Not on filedocumented in this encounter Care Teams Team MemberRelationshipSpecialtyStart DateEnd Date Ely Montgomery DO PCP - GeneralFamily Medicine06/02/24 Gracie Reeves, OD [address] [place], [place] [id number] Optometry06/02/24 Amy Ingram PA-C [address] [address] Assigned Neuroscience Provider07/15/24 Chepe Cerna PA-C [address] [facility] [place] [address] Assigned Heart and Vascular Provider07/15/24 Gracie Reeves, OD [address] [place], [place] [id number] Assigned Surgical Provider07/15/24documented as of this encounter
--- OUTSIDE RECORDS SUMMARY | 2025-02-10 14:11 | XMS_ITS | Clinical Summary ---
Author Organization [employer] [facility] Address [address] [place] [address] Care Team Providers Care It Sales Executive Name Role Phone Ange Stein MD Unavailable [phone] Ely Montgomery DO Primary Care Provider [phone] Allergies Active AllergyReactionsCriticalityNoted SljcOwrgxalrOylkwipfkuTnias21/06/2025 Fdjudprhe10/22/2010Diatrizoate GlazwjwsYjkvh06/22/1069Atvbdhuy69/22/2010 Medications MedicationSigDispense QuantityRefillsLast FilledStart DateEnd DateStatus medication order composer Tumeric (homiopathic supplement) 900 mg 1 po pwuwa540ctive medication order composer [place] Grapeseed 500 mg 1 po mjbfk699ctive ASCORBIC ACID, VITAMIN C, ORAL daily.Active ELDERBERRY FRUIT (ELDERBERRY ORAL) Take 1 tablet dailyActive cycloSPORINE (Restasis) 0.05 % ophthalmic emulsion Indications:Keratitis sicca, both eyesPlace 1 Drop into both eyes every 12 hours. 60 Each ctive Ventolin HFA 90 mcg/actuation inhaler Indications:SarcoidosisINHALE 1-2 PUFFS BY MOUTH EVERY 4 HOURS IF NEEDED FOR WHEEZING. 18 Each 11/03/2023ctive hydrocortisone (ANUSOL-HC SUPPOSITORY) 25 mg suppository UNWRAP AND INSERT 1 SUPPOSITORY RECTALLY TWICE A DAY FOR 2 WEEKS10/12/2023ctive tretinoin (RETIN-A) 0.05 % cream Indications:Nodular basal cell carcinoma (BCC)Apply topically to affected area(s) at bedtime. 20 g 5Active risankizumab-rzaa (Skyrizi) 60 mg/mL injection Inject 600 mg intravenous every 8 weeks.5Active multivitamin (MVI) tablet Take 1 Tablet by mouth once daily.4Active Sodium,Potassium,&Mag Sulfates (SUPREP) 17.5-3.13-1.6 gram As directed 6 oz one time.Active atorvastatin 40 mg tablet Indications:Mixed hyperlipidemiaTake 1 Tablet (40 mg) by mouth at bedtime. 100 Tablet 5Active apixaban 5 mg tablet Indications:LV (left ventricular) mural thrombusTake 1 Tablet (5 mg) by mouth two times daily. 200 Tablet 5Active losartan 25 mg tablet Take 25 mg by mouth once daily.5Active mesalamine (Canasa) 1,000 mg suppository Insert 1,000 mg rectally at bedtime. PRN4Active docusate 100 mg capsule Indications:Constipation, acuteTake 1 Capsule (100 mg) by mouth 2 times daily if needed for Constipation. 200 Capsule 5Active doxylamine (Unisom (doxylamine)) 25 mg tablet Indications:Insomnia, unspecified typeTake one half tablet at night time as needed for insomnia 30 Tablet 5Active traZODone (DESYREL) 50 mg tablet Indications:Insomnia, idiopathicTake 1-2 tablets before bed each night for insomnia. 30 Tablet 5Active fluticasone (50 mcg per actuation) nasal solution (FLONASE) Indications:Nasal congestionInhale 1 Republic in both nostrils once daily. 16 g 5Active zolpidem (AMBIEN) 5 mg tablet Indications:Insomnia, idiopathicTake 1-2 tablets by mouth about 1 hour before bed for insomnia. 30 Tablet 5Active Active Problems ProblemNoted DateDiagnosed DmniIhkezwlrwykw18/16/2025Essential hypertension 07/08/2024HFrEF (heart failure with reduced ejection fraction)5Acute ischemic etgbkc5005/18/2024LV (left ventricular) mural /26/2025Skin hzzqoq2211/25/2023 Overview (08/01/2024): 05/17/24: right wrist, SCCIS: Mohs done 08/01/[address] Engel 01/20/24: left helix, SCCIS, 03/21/24 Dr. Ugo Engel Mohs 11/18/23: nasal tip, BCC superficial and nodular: s/p Mohs 02/15/24 Dr. Ugo Engel Carotid artery uhfcgdrxyj40/11/2023Sarcoidosis of lung3Keratitis sicca, scneubrzd41/11/2023hronic obstructive pulmonary disease, unspecified COPD type 03/05/2022hronic systolic heart qgxlfuk2909/12/20190318Weihhkatitheax37/20/2020 Nonobstructive atherosclerosis of coronary pzjiow8109/12/2019Trigger thumb of left hand04/30/2018 Overview (04/30/2018): April 2017: Did left trigger thumb cortisone injection by Dr. Zarco, 10 months of symptom resolution, then symptoms returned Feb 2018. April 2018: Repeat left trigger thumb cortisone injection. Wefglnowlcc23/05/2016Plantar /23/2015Perioral zztlibwnqe71/22/2013 Seasonal wdtnqvepu58/15/2011Ulcerative colitis, vtdodnskear56/15/2011Presbyopia 09/24/2005 Resolved Problems ProblemNoted DateDiagnosed DateResolved DateSjogren syndrome with ezmecjmvryxkznyfahfc35/13/202412/13/2024 Encounters DateTypeDepartmentCare TjrqWsikxdbbwsv93/19/2025Nurse Triage [facility] [address] [place], [place] [phone] Ely Montgomery, Urinary Oahnrhh1701/10/2025Telephone [facility] [address] [place], [place] [phone] Sharri Lanier PA Refill Request (Trazodone/)01/03/2025 9:35 AM CSTOffice Visit [facility] [address] [place], [place] [phone] Sharri Lanier PA Sleep Problem (Hard to fall asleep, can't stay asleep long worse last 4 mos) 01/02/20252545Ylylyj45/07/2025 1:00 PM CDTOffice Visit [facility] [address] [facility] [address] [place] [address] Marce Webster PA Counter Clerk [employer] Exam (fatigue/had labs /estradiol was low )11/29/20245782Pdacqq88/03/2025Travel 11/23/2024Telephone [facility] [address] [facility] [place] [address] Ely Montgomery, DO Questions (Hold Orders)11/18/2024Orders Only [facility] [address] [facility] [place] [address] Sharri Lanier PA <No scans attached>11/17/2024 7:55 AM CDTOffice Visit [facility] [address] [place] [address] Sharri Lanier PA Qhkenwh3011/17/2024Travelfrom Last 3 Months Immunizations ImmunizationAdministration DatesNext DueInfluenza Virus, Xakzsnvwmkc22/08/2009 Influenza, IIV3 (Age 6-35 mos)01/30/2009Influenza, IIV3 (Age >=3 years) 01/21/2008,12/31/2004Pneumococcal Poly,23-Valent (Pneumovax)10/24/2014, 12/15/2008,02/24/2008Td (Age >=7 Years)12/31/2004Tdap08/03/2015Tdap, Unspecified 08/03/2015 Family History Medical HistoryRelationNameCommentsGI DiseaseDaughterIBSDiabetesFatherMental illnessFatherNo Known ProblemsMaternal GrandfatherNo Known ProblemsMaternal GrandmotherUnknownMotherGeneticOther headaches~diabetes-father~arthritis~headachesOtherPaternal Grandfatherpossible colitisMelanomaSisterRelationNameStatusCommentsDaughterFatherMaternal GrandfatherMaternal GrandmotherMotherOtherPaternal GrandfatherSisterDeceased Social History Tobacco UseTypesPacks/DayYears UsedDateSmoking Tobacco: MuunozPaczuoflwr21 02/23/1978 - 02/23/1983Passive Smoke Exposure: NeverSmokeless Tobacco: Never Tobacco Cessation:Counseling Given: Not Answered Alcohol UseStandard Drinks/WeekCommentsNot Currently0 (1 standard drink = 0.6 oz pure alcohol)rare, only on vacationPHQ-2AnswerDate RecordedPHQ-2 TOTAL SCORE4 5Alcohol UseAnswerDate RecordedHow often do you have a drink containing alcohol?How many drinks containing alcohol do you have on a typical day when you are drinking?How often do you have five or more drinks on one occasion?Financial Resource StrainAnswerDate Recorded Difficulty of Paying Living ExpensesNot on file2Difficulty of Paying Living ExpensesNot on file2CommentsNoSex and Gender Information ValueDate RecordedSex Assigned at BirthNot on fileLegal WqnWcpwau52/14/2013 6:25 AM CSTGender IdentityNot on fileSexual OrientationNot on fileOccupationIndustry Job Start DateJob End DatePara PROFESSIONALNot on fileNot on fileNot on file Obstetrics History GravidaParaTermPretermABIABSABEctopicMultipleLivingLive Spmozx34ZqhuYteemftXG Total LaborLabor/2nd/9gfTujsmeCcyCsqrNyndFBCWoiU3N0TwrjZjcsIdpdkmw Last Filed Vital Signs Vital SignReadingTime TakenCommentsBlood Jmvtzdmj644/7201/03/2025 9:33 AM SALES MARKET LEADER Zvmmi510901/03/2025 9:33 AM UPUJlphcmtlith41.5 ??C (97.7 ??F)07/08/2024 10:20 AM CDTRespiratory Vghn662309/05/2019 2:59 PM CDTOxygen Hgqrraxjkm53%07/08/2024 10:20 AM CDTInhaled Oxygen Concentration--Yhncmu44.8 kg (165 lb)01/03/2025 9:33 AM SALES MARKET LEADER Aponce324.5 cm (5' 2)01/03/2025 9:33 AM CSTBody Mass Index30.18103/05/2024 9:33 AM SALES MARKET LEADER Plan of Treatment DateTypeDepartmentCare Team (Latest Contact Info)Arobyozlsgh51/05/2026 10:00 AM CSTOffice Visit [facility] [address] [place] [phone] Fredy Rodriguez PA [address] [place] [address] Health MaintenanceDue DateLast DoneCommentsCOVID-19 vaccine series (#1) 05/11/1960HIV for age 15-Zoster (shingles) series for age 50+ (1 of 2)11/11/1978RSV vaccine for adults or (1 - Risk 50-74 years 1-dose series)11/11/2009Pneumococcal series for age 50+ (2 of 2 - PCV)10/25/2015 10/24/2014, 12/15/2008, 02/24/2008Influenza Vaccine (#1), 01/30/2009, 01/21/2008, Additional history existsDEXA/DXA scan for age 65+ /Medicare Wellness for age 65+11/11/2024Mammogram for age 45-75/, 10/20/2022, 10/03/2021, Additional history exists Depression screening for age 12+/07/2024, 09/24/2021, 05/16/2020, Additional history existsPap test for age 21-/, 05/16/2020, 08/28/2015, Additional history existsTetanus vhqbirh16, 08/03/2015, 12/31/2004BMI (ht and wt on same day) for age 18+01/03/2026 01/03/2025, 07/08/2024, 03/31/2024, Additional history existsColonoscopy through age 758102/29/2024, 03/10/2022, 11/30/2018, Additional history exists Lipids for age 45-7509/, 07/08/2024, 03/31/2024, Additional history existsHepatitis C screening for age 18-63Aufbvcdce19/31/2020Hepatitis B series for 19+Aged OutNo longer eligible based on patient's age to complete this topic Procedures Procedure NamePriorityDate/TimeAssociated DiagnosisCommentsSCAN-COLONOSCOPY 12/29/2024 10:00 AM SALES MARKET LEADER CBC WITH AUTO QCAFNSHJIFJPNfixpsy93/25/2025 8:45 AM CDT Fatigue, unspecified type LIPID PANEL W REFLEX MEASURED KUOEbplruc30/25/2025 8:45 AM CDT Fatigue, unspecified type Dyslipidemia THYROPEROXIDASE WJFCMIXHLtksysu36/25/2025 8:45 AM CDT Fatigue, unspecified type JNAOOVBGFKozbgys82/25/2025 8:45 AM CDT Fatigue, unspecified type VITAMIN D 25 (DEFICIENCY)Rkildso8411/17/2024 8:45 AM CDT Fatigue, unspecified type Vitamin D deficiency, unspecified VITAMIN V98Qiydhsy71/25/2025 8:45 AM CDT Fatigue, unspecified type COMP METABOLIC GVQLNXaayykb59/25/2025 8:45 AM CDT Fatigue, unspecified type Essential hypertension IRON PLUS IRON BINDING UDKCqzrexx93/25/2025 8:45 AM CDT Fatigue, unspecified type 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 EDNMMLUWXavbtfk37/25/2025 8:45 AM CDT Fatigue, unspecified type 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 CBC WITH AUTO BKQHZYFCVSRUCkyturg93/25/2025 8:45 AM CDT Fatigue, unspecified type T3,NBMJMXpggjxg03/25/2025 8:45 AM CDT Fatigue, unspecified type TSH WITH NVOWUFQlvdvfj26/25/2025 8:45 AM CDT Fatigue, unspecified type XR MAMMO BETTY BILAT TLZELQLjwokgh40/16/2024 9:11 AM CDT Screening breast examination XR DXA BONE DENSITY 2 SITES YAJTJNzzxlfz97/25/2021 7:56 AM CDT Routine general medical examination at a [facility] PROGRAM PROFESSIONAL THIN PREP PAP SCREEN FAYYIGNhwcsjl98/24/2021 9:30 AM CDT Pap smear for cervical cancer screening ANTI RIPMtjmoku88/31/2020 8:28 AM CDT Need for hepatitis C screening test from Last 3 Months or Most Recently Relevant to Health Maintenance Results * SCAN-COLONOSCOPY (12/29/2024 10:00 AM SALES MARKET LEADER) Narrative Procedure Note Lanre Whitten MD - 12/29/2024 9:17 AM CST [facility] [address] [place] [address], [address], [place] [address] Patient Name: Tash Ramirez Gender: Female Exam Date: 12/29/2024 Visit Number: [id number] Age: 64 Years Date of : 1960 Attending MD: Lanre Whitten MD Medical Record#: [id number] Procedure: Colonoscopy Indications: Ulcerative colitis (left-sided); on Skyrizi q8 weeks Symptoms mostly in remission, but persistent constipation Referring MD: Referral Self Primary MD: Ely Montgomery DO Medications: Admitting Medications: 0.9% Normal Saline at TKO Intra Procedure Medications: Patient received monitored anesthesia care. Complications: No immediate complications Procedure: An examination of the heart and lungs was performed and found to be within acceptable limits. . The patient was therefore deemed a reasonablecandidate for endoscopy and sedation. The risks and benefits of the procedure were explained to thepatient.After obtaining informed consent, the patient received monitoredanesthesia care and I passed the scope without difficulty via the rectum to the ileum. The appendiceal orificeand ic valve were identified. The scope was retroflexed during theexamination The quality of the prep was good (Miralax/Gatorade DoublePrep). This was a complete examination throughout the entire colon. Findings: ?? Normal finding. Location - ileum. ?? Appearance of mild inflammation (decreased vascularity, erythema,friability) limited to the rectum. The remainder of the colon appearednormal. ?? Polyp location: ascending colon. Quantity: 1. Size: 4 mm. Polypshape: sessile. Maneuver: polypectomy was performed with a cold snare. Removal: complete. Retrieval: complete. Bleeding: none. ?? Diverticulosis. Location: - sigmoid. Size: medium. Quantity:several. Anal canal: internal hemorrhoid(s) Remainder of the exam is normal. Impression: Dvrtclos of lg int w/o perforation or abscess w/o bleeding Internal hemorrhoids Colorectal polyps Endoscopic Prado Score = 1; Mild disease: Erythema, decreased vascularpattern, mild friability Preliminary Plan: Repeat colonoscopy in 3 years Antiplatelets/Anticoagulants: Apixaban (Eliquis). Last dose: 4 days ago. Restart. Date: 12/29/2024 Recommendation Comments: -Follow-up pathology results. -If active inflammation confirmed on biopsies, would seek approval formore frequent Skyrizi injections (every 6 weeks). Pathology Results: A: COLON, RIGHT RANDOM, BIOPSY: 1. Inactive chronic colitis with rare epithelioid non-necrotizinggranulomas, consistent with inflammatory bowel disease 2. Negative for dysplasia 3. See comment B: COLON, LEFT RANDOM, BIOPSY: 1. Mildly active chronic colitis with scattered epithelioidnon-necrotizing granulomas, consistent with inflammatory bowel disease 2. Negative for dysplasia C: COLON, ASCENDING, POLYP: 1. Inflammatory polyp, consistent with origin in inflammatorybowel disease 2. Negative for dysplasia COMMENTS A, B. As noted in 2019, it is difficult to re-subtype treated patientswith inflammatory bowel disease. Although granulomas are much morecommonly associated with Crohn's disease, they have been encountered inrare cases of ulcerative colitis. However, the presence of numerousgranulomas here, as well as back in 2019, 2017 and 2008 does raise thepossibility of this patient having Crohn's disease, rather than ulcerativecolitis. Correlation with clinical features and endoscopic findings isrecommended. MICROSCOPIC A: Performed B: Performed C: Performed Electronically signed by: Jaskaran Padilla MD Interpreted at [facility], [address] [place] [phone] Orders Instruction(s)/Education: Instruction/Education Timeframe Assessment Colon Cancer Prevention K63.5 Colon Polyps K63.5 Diverticulosis/Diverticulitis K63.5 Hemorrhoids K63.5 Final Plan: Repeat colonoscopy in 3 years for Crohn's disease. We will attempt to contact you at appropriate intervals via U.S. mail. Wemay not be able to find you or contact you at that time, therefore youshould know that the responsibility for following our recommendation restswith you. If you don't hear from us at the time your procedure is due,please contact our office to schedule an appointment. If your contactinformation should change, please contact our office so that we can updateyour record. Additional Comments: Your biopsies showed mildly active inflammation in the left colon. Thebiopsies were also more suggestive of Crohn's disease than ulcerativecolitis. The same treatments are mostly used for both Crohn's disease andulcerative colitis, so this does not necessary change your treatment plan. -Because of the active inflammation, I recommend we try increasing Skyrizito every 6 week injections. Our office will contact you to schedulefollow-up. _Electronically signed by: Lanre Whitten MD 12/29/2024 cc: Ely Montgomery DO Authorizing ProviderResult TypeResult StatusCorbluis armando Whitten MDOTHERFinal Result * (ABNORMAL) CBC WITH AUTO DIFFERENTIAL (11/17/2024 8:45 AM CDT)ComponentValue Ref RangeTest MethodAnalysis TimePerformed AtPathologist SignatureWHITE BLOOD CELL COUNT4.63.8 - 10.8 Thousand/uL11/18/2024 3:47 AM CDTQUEST DIAGNOSTICSRED BLOOD CELL COUNT4.853.80 - 5.10 Million/uL11/18/2024 3:47 AM CDTQUEST ZGYVBJWBBOUWRRSEKKLOL06.411.7 - 15.5 g/dL11/18/2024 3:47 AM CDTQUEST RQLIHJHSZKIUCXEYDUZAC71.0(H)35.0 - 45.0 %11/18/2024 3:47 AM CDTQUEST TCIZBKQWBZVCYC43.880.0 - 100.0 fL11/18/2024 3:47 AM CDTQUEST DIAGNOSTICSMCH 29.727.0 - 33.0 pg11/18/2024 3:47 AM CDTQUEST AIVATLFSRXEJBYH32.3(L)32.0 - 36.0 g/dL11/18/2024 3:47 AM CDTQUEST DIAGNOSTICSComment: For adults, a slight decrease in the calculated MCHC value (in the range of 30 to 32 g/dL) is most likely not clinically significant; however, it should be interpreted with caution in correlation with other red cell parameters and the patient's clinical condition. RDW13.911.0 - 15.0 %11/18/2024 3:47 AM CDTQUEST DIAGNOSTICSPLATELET ZUMPG974988 - 400 Thousand/uL11/18/2024 3:47 AM CDTQUEST UXQEAFDWAFENRH04.37.5 - 12.5 fL 11/18/2024 3:47 AM CDTQUEST DDIZUIXTWJPXPOLLAQOHCH66.5%11/18/2024 3:47 AM CDT QUEST LFQCLGAMUBRXQOOASCIMKI33.7%11/18/2024 3:47 AM CDT[facility] MONOCYTES9.0%11/18/2024 3:47 AM CDTQUEST DIAGNOSTICSEOSINOPHILS2.4%11/18/2024 3:47 AM CDTQUEST DIAGNOSTICSBASOPHILS0.4%11/18/2024 3:47 AM CDT[facility] ABSOLUTE SWXDQEBOEUU99431380 - 7800 cells/uL 3:47 AM CDTQUEST DIAGNOSTICSABSOLUTE XEXWWNAPZGU8887810 - 3900 cells/11/18/2024 3:47 AM CDT QUEST DIAGNOSTICSABSOLUTE QXGWXDZFR879438 - 950 cells/11/18/2024 3:47 AM CDT QUEST DIAGNOSTICSABSOLUTE HLVLZKEDDFE86029 - 500 cells/11/18/2024 3:47 AM CDT QUEST DIAGNOSTICSABSOLUTE NACMXCGCQ576 - 200 cells/11/18/2024 3:47 AM CDTQUEST DIAGNOSTICSSpecimen (Source)Anatomical Location / LateralityCollection Method / VolumeCollection TimeReceived TimeBloodBLOOD SPECIMEN / UnknownQuest Collect / Wnjymoh4311/17/2024 8:45 AM CDT11/17/2024 8:45 AM CDT Narrative Authorizing ProviderResult TypeResult StatusCorewell Health [facility] PAHEMATOLOGY Final ResultPerforming OrganizationAddressty/State/ZIP CodePhone Number 2C2P [address] [address], [place] [phone] * TSH WITH REFLEX (11/17/2024 8:45 AM CDT)ComponentValueRef RangeTest Method Analysis TimePerformed AtPathologist SignatureTSH W/REFLEX TO FT43.750.40 - 4.50 mIU/L11/18/2024 4:13 AM CDTQUEST DIAGNOSTICSSpecimen (Source)Anatomical Location / LateralityCollection Method / VolumeCollection TimeReceived Time BloodBLOOD SPECIMEN / UnknownQuest Collect / Qvxocfp8011/17/2024 8:45 AM CDT 11/17/2024 8:45 AM CDT Narrative Authorizing ProviderResult TypeResult StatusCorewell Health [facility] PACHEMISTRY Final ResultPerforming OrganizationAddPenn State Healthty/State/ZIP CodePhone Number 2C2P [address] [address], [place] [phone] * LIPID PANEL W REFLEX MEASURED LDL (11/17/2024 8:45 AM CDT)ComponentValueRef RangeTest MethodAnalysis TimePerformed AtPathologist SignatureCHOLESTEROL, SWDNU804<200 mg/dL11/18/2024 5:21 AM CDTQUEST JXAXLRETBZCPLKMRMWIMRJUG52<150 mg/dL11/18/2024 5:21 AM CDTQUEST DIAGNOSTICSHDL MWPTMOXFAKY24> OR = 50 mg/dL 11/18/2024 5:21 AM CDTQUEST DIAGNOSTICSNON HDL RADKANDAYVN18<130 mg/dL (calc) 11/18/2024 5:21 AM CDTQUEST DIAGNOSTICSComment: For patients with diabetes plus 1 major ASCVD risk factor, treating to a non-HDL-C goal of <100 mg/dL (LDL-C of <70 mg/dL) is considered a therapeutic option. CHOL/HDLC RATIO2.2<5.0 (calc)11/18/2024 5:21 AM CDTQUEST DIAGNOSTICS LDL-BXPJXSQPVDT95be/dL (calc)11/18/2024 5:21 AM CDTQUEST DIAGNOSTICSComment: Reference range: <100 Desirable range <100 mg/dL for primary prevention; <70 mg/dL for patients with CHD or diabetic patients with > or = 2 CHD risk factors. LDL-C is now calculated using the Danyell calculation, which is a validated novel method providing better accuracy than the Friedewald equation in the estimation of LDL-C. Walt SS et al. MITRA. 2013;310(19): 7327-4898 (http://education.Tokutek/faq/ICJ098) Specimen (Source)Anatomical Location / LateralityCollection Method / Volume Collection TimeReceived TimeBloodBLOOD SPECIMEN / UnknownQuest Collect / Unknown 11/17/2024 8:45 AM CDT11/17/2024 8:45 AM CDT Narrative Authorizing ProviderResult TypeResult StatusMac[facility] PACHEMISTRY Final ResultPerforming OrganizationAddressCity/State/ZIP CodePhone Number 2C2P [facility] [address] [phone], * VITAMIN D 25 (DEFICIENCY) (11/17/2024 8:45 AM CDT)ComponentValueRef RangeTest MethodAnalysis TimePerformed AtPathologist SignatureVITAMIN D,25-OH,TOTAL,IA41 30 - 100 ng/mL11/18/2024 4:13 AM CDTQUEST DIAGNOSTICSComment: Vitamin D Status ? 25-OH Vitamin D: Deficiency: <20 ng/mL Insufficiency: ? 20 - 29 ng/mL Optimal: > or = 30 ng/mL For 25-OH Vitamin D testing on patients on D2-supplementation and patients for whom quantitation of D2 and D3 fractions is required, the QuestAssureD(TM) 25-OH VIT D, (D2,D3), LC/MS/MS is recommended: order code 28062 (patients >2yrs). See Note 1 Note 1 For additional information, please refer to http://education.Tokutek/faq/DGD485 (This link is being provided for informational/ educational purposes only.) Specimen (Source)Anatomical Location / LateralityCollection Method / Volume Collection TimeReceived TimeBloodBLOOD SPECIMEN / UnknownQuest Collect / Unknown 11/17/2024 8:45 AM CDT11/17/2024 8:45 AM CDT Narrative Authorizing ProviderResult TypeResult StatusMacMcLaren Northern Michiganmaryjane Russell PASEND OUTS Final ResultPerforming OrganizationAddressCity/State/ZIP CodePhone Number 2C2P [facility] [address] [place] [phone], * IRON PLUS IRON BINDING CAP (11/17/2024 8:45 AM CDT)ComponentValueRef RangeTest MethodAnalysis TimePerformed AtPathologist SignatureIRON, HZBUK9618 - 160 mcg/dL11/18/2024 5:21 AM CDTQUEST DIAGNOSTICSIRON BINDING NMESCAUH540978 - 450 mcg/dL (calc)11/18/2024 5:21 AM CDTQUEST DIAGNOSTICS% RJCBRDGRCO0568 - 45 % (calc)11/18/2024 5:21 AM CDTQUEST DIAGNOSTICSSpecimen (Source)Anatomical Location / LateralityCollection Method / VolumeCollection TimeReceived Time BloodBLOOD SPECIMEN / UnknownQuest Collect / Fhnxeks5611/17/2024 8:45 AM CDT 11/17/2024 8:45 AM CDT Narrative Authorizing ProviderResult TypeResult StatusMacour lady of fatima hospitalmaryjane Lanier PACHEMISTRY Final ResultPerforming OrganizationAddressty/State/ZIP CodePhone Number 2C2P [address] [address], [place] [phone] * THYROPEROXIDASE ANTIBODY (11/17/2024 8:45 AM CDT)ComponentValueRef RangeTest MethodAnalysis TimePerformed AtPathologist SignatureTHYROID PEROXIDASE ANTIBODIES1<9 IU/mL11/18/2024 12:41 PM CDTQUEST DIAGNOSTICSSpecimen (Source) Anatomical Location / LateralityCollection Method / VolumeCollection Time Received TimeBloodBLOOD SPECIMEN / UnknownQuest Collect / Bggpnfy0611/17/2024 8:45 AM CDT11/17/2024 8:45 AM CDT Narrative Authorizing ProviderResult TypeResult StatusMaclyndseymaryjane Lanier PASEND OUTS Final ResultPerforming OrganizationAddressCity/State/ZIP CodePhone Number 2C2P [address] [address], [place] [phone] * T3,TOTAL (11/17/2024 8:45 AM CDT)ComponentValueRef RangeTest MethodAnalysis TimePerformed AtPathologist SignatureT3, OQYFU4435 - 181 ng/dL11/18/2024 4:13 AM CDTQUEST DIAGNOSTICSSpecimen (Source)Anatomical Location / Laterality Collection Method / VolumeCollection TimeReceived TimeBloodBLOOD SPECIMEN / UnknownQuest Collect / Cktdwkb0811/17/2024 8:45 AM CDT11/17/2024 8:45 AM CDT Narrative Authorizing ProviderResult TypeResult StatusMacroel Lanier PACHEMISTRY Final ResultPerforming OrganizationAddressCity/State/ZIP CodePhone Number QUEST [employer] [address] [address], [place] [phone] * FERRITIN (11/17/2024 8:45 AM CDT)ComponentValueRef RangeTest MethodAnalysis TimePerformed AtPathologist VxiocuszjUTUSTWVF4133 - 288 ng/mL11/18/2024 4:13 AM CDTQUEST DIAGNOSTICSSpecimen (Source)Anatomical Location / Laterality Collection Method / VolumeCollection TimeReceived TimeBloodBLOOD SPECIMEN / UnknownQuest Collect / Kydssyc1611/17/2024 8:45 AM CDT11/17/2024 8:45 AM CDT Narrative Authorizing ProviderResult TypeResult StatusMacour lady of fatima hospitalmaryjane Lanier PACHEMISTRY Final ResultPerforming OrganizationAddressCity/State/ZIP CodePhone Number 2C2P [facility] [address] [place] [address], [place] [phone] * ESTRADIOL (11/17/2024 8:45 AM CDT)ComponentValueRef RangeTest MethodAnalysis TimePerformed AtPathologist JvqupwxwdTGSBTTMYE28lq/mL11/18/2024 4:20 AM CDT [facility] DIAGNOSTICSComment: ?Reference Range ?Follicular Phase: ?19-144 ?Mid-Cycle: ? 64-357 ?Luteal Phase: ?56-214 Postmenopausal: < or = 31 ? Reference range established on post-pubertal patient population. No pre-pubertal reference range established using this assay. For any patients for whom low Estradiol levels are anticipated (e.g. males, pre-pubertal children and hypogonadal/post-menopausal females), the [employer] [facility] Estradiol, Ultrasensitive, LCMSMS assay is recommended (order code 01255). ?? Please note: patients being treated with the drug fulvestrant (Faslodex(R)) have demonstrated significant interference in immunoassay methods for estradiol measurement. The cross reactivity could lead to falsely elevated estradiol test results leading to an inappropriate clinical assessment of estrogen status. [employer] order code 73925-Zzjakhsgp, Ultrasensitive LC/MS/MS demonstrates negligible cross reactivity with fulvestrant. Specimen (Source)Anatomical Location / LateralityCollection Method / Volume Collection TimeReceived TimeBloodBLOOD SPECIMEN / UnknownQuest Collect / Unknown 11/17/2024 8:45 AM CDT11/17/2024 8:45 AM CDT Narrative Authorizing ProviderResult TypeResult StatusMaclyndseymaryjane Lanier PASEND OUTS Final ResultPerforming OrganizationAddressCity/State/ZIP CodePhone Number 2C2P [facility] [address] [place] [address], [place] [phone] * VITAMIN B12 (11/17/2024 8:45 AM CDT)ComponentValueRef RangeTest MethodAnalysis TimePerformed AtPathologist SignatureVITAMIN [id number] - 1100 pg/mL11/18/2024 4:13 AM CDTQUEST DIAGNOSTICSSpecimen (Source)Anatomical Location / Laterality Collection Method / VolumeCollection TimeReceived TimeBloodBLOOD SPECIMEN / UnknownQuest Collect / Jbgeamx0911/17/2024 8:45 AM CDT11/17/2024 8:45 AM CDT Narrative Authorizing ProviderResult TypeResult StatusMac[facility] PACHEMISTRY Final ResultPerforming OrganizationAddressCity/State/ZIP CodePhone Number [facility] [place] [id number] [place] [address], * COMP METABOLIC PANEL (11/17/2024 8:45 AM CDT)ComponentValueRef RangeTest MethodAnalysis TimePerformed AtPathologist PipyjetevZYJFQI239110 - 146 mmol/L 11/18/2024 5:21 AM CDTQUEST DIAGNOSTICSPOTASSIUM4.63.5 - 5.3 mmol/L11/18/2024 5:21 AM CDTQUEST LWIVHQKPQOWXXYMYWRN53512 - 110 mmol/L11/18/2024 5:21 AM CDT [facility] DIAGNOSTICSCARBON CTEXFQE3643 - 32 mmol/L11/18/2024 5:21 AM CDTQUEST DQQNBSGOIOXSONOKRD6488 - 99 mg/dL11/18/2024 5:21 AM CDTQUEST [facility] Comment: ? Fasting reference interval CALCIUM9.28.6 - 10.4 mg/dL11/18/2024 5:21 AM CDTQUEST DIAGNOSTICSCREATININE0.75 0.50 - 1.05 mg/dL11/18/2024 5:21 AM CDTQUEST DIAGNOSTICSBUN/CREATININE RATIOSEE NOTE: (calc)11/18/2024 5:21 AM CDTQUEST DIAGNOSTICSComment: ?? Not Reported: BUN and Creatinine are within ?? reference range. ? EGFR88> OR = 60 mL/min/1.82o68811/18/2024 5:21 AM CDTQUEST DIAGNOSTICSALBUMIN3.9 3.6 - 5.1 g/dL11/18/2024 5:21 AM CDTQUEST DIAGNOSTICSPROTEIN, TOTAL6.96.1 - 8.1 g/dL11/18/2024 5:21 AM CDTQUEST DIAGNOSTICSBILIRUBIN, TOTAL0.50.2 - 1.2 mg/dL 11/18/2024 5:21 AM CDTQUEST DIAGNOSTICSALKALINE JDZNBVAXVOP8613 - 153 U/L 11/18/2024 5:21 AM CDTQUEST QGTSOMMCZURZAK996 - 29 U/L11/18/2024 5:21 AM CDT [facility] EBKHUYVPVHWEQG0083 - 35 U/L11/18/2024 5:21 AM CDTQUEST DIAGNOSTICSUREA NITROGEN (BUN)117 - 25 mg/dL11/18/2024 5:21 AM CDTQUEST DIAGNOSTICSGLOBULIN3.0 1.9 - 3.7 g/dL (calc)11/18/2024 5:21 AM CDTQUEST DIAGNOSTICSALBUMIN/GLOBULIN RATIO1.31.0 - 2.5 (calc)11/18/2024 5:21 AM CDTQUEST DIAGNOSTICSSpecimen (Source) Anatomical Location / LateralityCollection Method / VolumeCollection Time Received TimeBloodBLOOD SPECIMEN / UnknownQuest Collect / Xpasiww6711/17/2024 8:45 AM CDT11/17/2024 8:45 AM CDT Narrative Authorizing ProviderResult TypeResult StatusMac[facility] PACHEMISTRY Final ResultPerforming OrganizationAddressCity/State/ZIP CodePhone Number [facility] [place] [address], * XR MAMMO BETTY BILAT SCREEN (12/09/2023 9:11 AM CDT)Anatomical RegionLaterality ModalityBREASTS, Breast Left, Breast RightBilateralMammographySpecimen (Source)Anatomical Location / LateralityCollection Method / VolumeCollection TimeReceived Time12/09/2023 9:11 AM CDT Impressions 12/09/2023 9:33 AM CDT IMPRESSION: ACR BI-RADS 1: Negative Recommended follow-up: Annual Mammography beginning at age 40 or as discussed with your provider. When performed, computer-aided detection was used in the interpretation of this study. A lay language report of this examination will be mailed to the patient. LIFETIME BREAST CANCER RISK ASSESSMENT SCORE: Lifetime risk of developing breast cancer is 6.6% calculated using the Yaquelin Model and information provided by the patient at the time of screening. The average lifetime risk for developing breast cancer is 12.9% for women born in the . For patients with a lifetime breast cancer risk assessment score of less than 20%, annual screening mammography is recommended. For patients with a lifetime risk of greater than 20%, annual screening mammography supplemented with annual Breast MRI is recommended. Patients in this category are encouraged to discuss this recommendation with their healthcare provider to determine if Breast MRI is appropriate and if so, to obtain a referral and confirm coverage with their health insurance. Recommendations are based on the [employer] [employer] Appropriateness Criteria. Patients with a BI-RADS category of 0 should follow the recommendations for further evaluation before considering supplemental screening. Narrative 12/09/2023 9:33 AM CDT EXAM: MAMMOGRAM SCREENING BETTY BILATERAL LOCATION: [facility] DATE: 12/09/2023 INDICATION: Asymptomatic. Screening Mammogram. COMPARISON: 10/20/22, 10/03/21 BREAST DENSITY: There are scattered areas of fibroglandular density. FINDINGS: Tomosynthesis craniocaudal and mediolateral oblique views were obtained. No concerning mammographic findings. Procedure Note Lexi Rodriguez MD - 12/09/2023 EXAM: MAMMOGRAM SCREENING BETTY BILATERAL LOCATION: [facility] DATE: 12/09/2023 INDICATION: Asymptomatic. Screening Mammogram. COMPARISON: 10/20/22, 10/03/21 BREAST DENSITY: There are scattered areas of fibroglandular density. FINDINGS: Tomosynthesis craniocaudal and mediolateral oblique views were obtained. No concerning mammographic findings. IMPRESSION: IMPRESSION: ACR BI-RADS 1: Negative Recommended follow-up: Annual Mammography beginning at age 40 or as discussed with your provider. When performed, computer-aided detection was used in the interpretation of this study. A lay language report of this examination will be mailed to the patient. LIFETIME BREAST CANCER RISK ASSESSMENT SCORE: Lifetime risk of developing breast cancer is 6.6% calculated using the Yaquelin Model and information provided by the patient at the time of screening. The average lifetime risk for developing breast cancer is 12.9% for women born in the [place]. For patients with a lifetime breast cancer risk assessment score of less than 20%, annual screening mammography is recommended. For patients with a lifetime risk of greater than 20%, annual screening mammography supplemented with annual Breast MRI is recommended. Patients in this category are encouraged to discuss this recommendation with their healthcare provider to determine if Breast MRI is appropriate and if so, to obtain a referral and confirm coverage with their health insurance. Recommendations are based on the [employer] Appropriateness Criteria. Patients with a BI-RADS category of 0 should follow the recommendations for further evaluation before considering supplemental screening. Authorizing ProviderResult TypeResult StatusDeborah J Haqq CNMMAMMOFinal Result * XR DXA BONE DENSITY 2 SITES AXIAL (05/17/2020 7:56 AM CDT)Anatomical Region LateralityModalitySpine, HIPS, HIPL, HIPRComputed RadiographySpecimen (Source) Anatomical Location / LateralityCollection Method / VolumeCollection Time Received Time05/17/2020 7:56 AM CDT Narrative 05/17/2020 8:53 AM CDT EXAM: XR DXA BONE DENSITY 2 SITES AXIAL LOCATION: [facility] DATE/TIME: 05/17/2020 7:56 AM INDICATION: 59-year-old postmenopausal female. Bone mineral density screening. COMPARISON: None. TECHNIQUE: Dual-energy x-ray absorptiometry performed with routine technique. FINDINGS: Lumbar Spine: L1-L4: BMD: 1.133 g/cm2. T-score: -0.4. Z-score: 0.8 RIGHT Hip Total: BMD: 0.931 g/cm2. T-score: -0.6. Z-score: 0.3 RIGHT Hip Femoral neck: BMD: 0.908 g/cm2. T-score: -0.9. Z-score: 0.3 LEFT Hip Total: 0.962 g/cm2. T-score: -0.4. Z-score: 0.6 LEFT Hip Femoral neck: 0.864 g/cm2. T-score: -1.3. Z-score: 0.0 WHO Criteria: Normal: T score at or above -1 SD Osteopenia: T score between -1 and -2.5 SD Osteoporosis: T score at or below -2.5 SD COMPARISON: None. FRAX Results: 10 year probability of major osteoporotic fracture is 12.1%, and of hip fracture is 1.0%, based on left femoral neck BMD. RECOMMENDATIONS: Consider treatment if major osteoporotic fracture score is greater than or equal to 20%. Consider treatment if hip fracture score is greater than or equal to 3%. IMPRESSION: Low bone density (OSTEOPENIA). T score meets the World Health Organization (WHO) criteria for low bone density (osteopenia) at one or more measured sites. The risk of osteoporotic fracture increased approximately two- fold for each SD decrease in T-score. Procedure Note Ben Henry MD - 05/17/2020 EXAM: XR DXA BONE DENSITY 2 SITES AXIAL LOCATION: [facility] DATE/TIME: 05/17/2020 7:56 AM INDICATION: 59-year-old postmenopausal female. Bone mineral densityscreening. COMPARISON: None. TECHNIQUE: Dual-energy x-ray absorptiometry performed with routinetechnique. FINDINGS: Lumbar Spine: L1-L4: BMD: 1.133 g/cm2. T-score: -0.4. Z-score: 0.8 RIGHT Hip Total: BMD: 0.931 g/cm2. T-score: -0.6. Z-score: 0.3 RIGHT Hip Femoral neck: BMD: 0.908 g/cm2. T-score: -0.9. Z-score: 0.3 LEFT Hip Total: 0.962 g/cm2. T-score: -0.4. Z-score: 0.6 LEFT Hip Femoral neck: 0.864 g/cm2. T-score: -1.3. Z-score: 0.0 WHO Criteria: Normal: T score at or above -1 SD Osteopenia: T score between -1 and -2.5 SD Osteoporosis: T score at or below -2.5 SD COMPARISON: None. FRAX Results: 10 year probability of major osteoporotic fracture is 12.1%,and of hip fracture is 1.0%, based on left femoral neck BMD. RECOMMENDATIONS: Consider treatment if major osteoporotic fracture score is greater than orequal to 20%. Consider treatment if hip fracture score is greater than orequal to 3%. IMPRESSION: Low bone density (OSTEOPENIA). T score meets the World Health Organization (WHO) criteria for low bone density (osteopenia) at one ormore measured sites. The risk of osteoporotic fracture increasedapproximately two- fold for each SD decrease in T-score. Authorizing ProviderResult TypeResult StatusDenika Barton CNMDEXAFinal Result * PROGRAM PROFESSIONAL THIN PREP PAP SCREEN IMAGED (05/16/2020 9:30 AM CDT)ComponentValueRef RangeTest MethodAnalysis TimePerformed AtPathologist SignatureCase Report Gynecologic Cytology Report ? Case: [id number] ? Authorizing Provider: ??Tiffanie Barton, ARIELLA ? Collected: ? 05/16/2020 0930 ? [facility]: ?05/16/2020 0937 ? Clinic ? First Screen: ?Megan Soto ? Specimen: ?PROGRAM PROFESSIONAL ThinPrep Vial Screening, Cervical ? 05/24/2020 5:41 PM [facility] INTERPRETATION/RESULTNEGATIVE FOR INTRAEPITHELIAL LESION OR MALIGNANCY (NIL) (none)05/24/2020 5:41 PM [facility] at 1741 CDTSPECIMEN ADEQUACY Satisfactory for evaluation Endocervical component hapktfo8505/24/2020 5:41 PM [facility] LABORATORYHPV REQUESTHPV and PAP05/24/2020 5:41 PM [facility] LABORATORYDate of MII971790/01/2021 5:41 PM [facility] LABORATORYLast Pap Date706/1603 5:41 PM [facility] LABORATORYLast Pap TwljwwMUW04/01/2021 5:41 PM CDT [facility]ORYAbnormal Pap or Bartlett Bx in last 5 lfkimBm5605/24/2020 5:41 PM [facility] Menstrual KdfcjzYmgdqwqylxtwdu70/01/2021 5:41 PM [facility] LABORATORYColp Bx Done UcvcmUd8105/24/2020 5:41 PM [facility] LABORATORYAdditional InformationNone given05/24/2020 5:41 PM [facility] LABORATORYComment: Cytology is screened at [facility] - [address], [place] [address] and [facility] - [address] [place] [address] and [facility] - [address] [place] [address] Interpreted at [facility] - [address], [place] [address] Automated ZdffeyPfyelkqclk23/01/2021 5:41 PM [facility] LABORATORYComment:Specimen processed successfully by automated ice skating instructor device, ThinPrep Imaging System, [employer]ANCILLARY TESTING GYNHPV Ordered, Please see separate ethjfv8405/24/2020 5:41 PM CDTALLINA HEALTH LABORATORY-CENTRAL LABORATORYNoteThe pap test is a screening technique, not a diagnostic procedure. It is used primarily to screen for squamous cancers and precursor lesions. Published studies have shown that it is subject to both false negative and false positive results. The pap test should not be used as the sole means to diagnose or exclude pre-malignant and malignant lesions.05/24/2020 5:41 PM [facility] LABORATORYSpecimen (Source)Anatomical Location / LateralityCollection Method / VolumeCollection TimeReceived TimeOther (Cervical) Non-Blood / Bdrwooe2005/16/2020 9:30 AM CDT05/16/2020 9:37 AM CDT Narrative Authorizing ProviderResult TypeResult StatusDenika Caglepapo CNMPATHOLOGY/CYTOLOGY Final ResultPerforming OrganizationAddressCity/State/ZIP CodePhone Number [facility] [address] [place] [address], * ANTI HCV (05/24/2019 8:28 AM CDT)ComponentValueRef RangeTest MethodAnalysis TimePerformed AtPathologist SignatureHEPATITIS C ANTIBODYNon-Reactive Non-Whjbcsfh33/31/2020 2:53 PM [facility] Comment:Antibodies to HCV not detected; does not exclude the possibility of exposure to HCV.Specimen (Source)Anatomical Location / LateralityCollection Method / VolumeCollection TimeReceived TimeBloodBLOOD SPECIMEN / Unknown Butterfly / Lbqkozu1805/24/2019 8:28 AM CDT05/24/2019 8:28 AM CDT Narrative Authorizing ProviderResult TypeResult StatusCarolmichael Caglepapo CNMSEND OUTSFinal ResultPerforming OrganizationAddressCity/State/ZIP CodePhone Number [facility] [address] [place] [address], from Last 3 Months or Most Recently Relevant to Health Maintenance Insurance Advance Directives * Full Code (Latest Code Status on File) Date ActivatedDate InactivatedComments09/05/2019 12:36 PM09/05/2019 5:57 PM Care Teams Team MemberRelationshipSpecialtyStart [place] [address] [place] [address] PCP - GeneralFamily Practice11/17/24 Ange Stein MD CardiologyCardiovascular Disease08/18/19
--- OUTSIDE RECORDS SUMMARY | 2025-02-10 14:12 | XMS_ITS | Encounter Summary ---
Author Organization [facility] [place] Address [address] [place] [address] Care Team Providers Care Bridge Crew Member Name Role Phone Ulises Ely Whipple DO Primary Care Provider [phone] ReevesGracie porras OD Unavailable Amy Ingram PA-C Unavailable [phone] Chepe Cerna PA-C Unavailable [phone] Gracie Reeves OD Unavailable Encounter Details DateTypeDepartmentCare Team (Latest Contact Info)Anunrnvortv90/08/2025Travel Social History Tobacco UseTypesPacks/DayYears UsedDateSmoking Tobacco: FormerCigarettes [...] in an abandoned building, in an overnight fci, or couch-surfing.)No05/08/2024re you worried about losing your [...] InformationValueDate RecordedSex Assigned at BirthNot on fileLegal XmyXjrhzg41/04/2012 3:26 AM CSTGender IdentityNot on file Sexual OrientationNot on filedocumented as of this encounter Plan of Treatment DateTypeDepartmentCare Team (Latest Contact Info)Lypxjzzxmbl02/26/2026 12:30 PM CDTOffice [facility] [address], [address] [place] [address] Amy Ingram PA-C [address] [facility] [address] [place], [place] [id number] documented as of this encounter Visit Diagnoses Not on filedocumented in this encounter Care Teams Team MemberRelationshipSpecialtyStart DateEnd Date Ely Montgomery DO PCP - GeneralFamily Medicine06/02/24 ReevesGracie porras, OD [address] [place], [place] [id number] Optometry06/02/24 Amy Ingram PA-C [address] [id number] Assigned Neuroscience Provider07/15/24 Chepe Cerna PA-C [address] [place], [place] [address] Assigned Heart and Vascular Provider07/15/24 Gracie Reeves, OD [address] [place], [place] [address] Assigned Surgical Provider07/15/24documented as of this encounter
== END 2025-02-10 14:42 | disposition home or self-care (01) ==
PROVIDERS: Emergency Provider Internal Medicine; PCP Family Medicine
DX: R31.9 Hematuria, unspecified (principal); R30.0 Dysuria; R35.0 Frequency of micturition; Z79.01 Long term (current) use of anticoagulants; Z86.73 Personal history of transient ischemic attack (TIA), and cerebral infarction without residual deficits
CPT/HCPCS: 81001; 99283